=== PATIENT | male | born 1980 | race Native Hawaiian/Other Pacific Islander ===

== ENCOUNTER 2019-12-15 11:54 | Outpatient (REF) | payer MEDICAID, SELFPAY ==
--- NOTE | 2019-12-15 12:18 | XR_ITS ---
EXAMINATION: LUMBOSACRAL SPINE 3 VIEWS CLINICAL INFORMATION: Pain. COMPARISON: June 05, 2015. TECHNIQUE: AP, lateral, spot lateral views of the lumbosacral spine are provided. FINDINGS: There are no fractures. The lumbar vertebrae are in normal alignment. There is mild disc height loss at L2/L3. There is anterior osteophyte formation. Disc heights and vertebral body heights are otherwise well-preserved. XR/XR lumbar spine 2-3V IMPRESSION: Mild degenerative change without evidence of acute injury.
--- NOTE | 2019-12-15 12:18 | XR_ITS ---
EXAMINATION: XR SOFT TISSUE NECK CLINICAL INDICATION: Neck pain. Skin paresthesia. COMPARISON: None TECHNIQUE: 2 views of the soft tissue neck were obtained. FINDINGS: There is bulky degenerative spondylosis with large anterior vertebral body bony osteophytes, largest at C3-4. This causes indentation on the hypopharynx. Prevertebral soft tissues are otherwise normal. No abnormal air collection or soft tissue foreign body is seen. Bone alignment is normal. No fracture or dislocation is seen. There is soft tissue ossification of the posterior neck at the C4 and C5 vertebral body levels likely related to old trauma. XR/XR soft tissue neck IMPRESSION: Severe degenerative spondylosis of the cervical spine with large vertebral body bony osteophytes.
[2019-12-15 13:12] LABS: Alanine Aminotransferase 29 U/L (0-40); Albumin Level 4.2 g/dL (3.5-5.0); Alkaline Phosphatase 63 U/L (39-117); Anion Gap 10 (12-20); Aspartate Amino Transferase 22 U/L (5-37); Bilirubin Total 0.6 mg/dL (0.0-1.0); Blood Urea Nitrogen 18 mg/dL (9-16); Calcium 8.6 mg/dL (8.4-10.2); Carbon Dioxide 31 mmol/L (22-29); Chloride 103 mmol/L (96-108); Cholesterol 174 mg/dL; Estimated Glomerular Filt Rate > 60; Glucose Random 91 mg/dL (60-115); HDL Cholesterol 36 mg/dL; LDL Cholesterol Calculated 118 mg/dl; Potassium 4.9 mmol/l (3.3-5.1); Sodium 139 mmol/L (135-145); Total Protein 7.2 g/dL (6.5-8.0); Triglycerides 102 mg/dL
[2019-12-15 13:24] LABS: TSH reflex Free T4 0.62 mIU/mL (0.32-4.0)
[2019-12-15 13:42] LABS: Estimated Average Glucose 120 mg/dL; Hemoglobin A1c % 5.8 %
== END 2019-12-15 11:55 | disposition home or self-care (01) ==
LOC: HO.LAB 11:54
PROVIDERS: Visit Provider Registered Nurse
DX: F32.9 Major depressive disorder, single episode, unspecified (principal); I10 Essential (primary) hypertension; M54.9 Dorsalgia, unspecified; R73.09 Other abnormal glucose; M54.2 Cervicalgia; M79.601 Pain in right arm; M79.602 Pain in left arm; R20.0 Anesthesia of skin; R20.2 Paresthesia of skin
CPT/HCPCS: 70360; 72100; 80053; 80061; 83036; 84443

== ENCOUNTER 2019-12-15 13:46 | Outpatient (REF) | payer MEDICAID, SELFPAY | END 2019-12-15 13:47 | disposition home or self-care (01) | LOC: HO.LAB 13:46 | PROVIDERS: Visit Provider Internal Medicine | DX: Z20.828 Contact with and (suspected) exposure to other viral communicable diseases (principal) | CPT/HCPCS: C9803; U0003 ==

== ENCOUNTER 2020-01-09 15:09 | Outpatient (REF) | payer MEDICAID, SELFPAY | END 2020-01-09 15:10 | disposition home or self-care (01) | LOC: HO.LAB 15:09 | PROVIDERS: Visit Provider Internal Medicine | DX: Z20.828 Contact with and (suspected) exposure to other viral communicable diseases (principal) | CPT/HCPCS: C9803; U0003 ==

== ENCOUNTER 2020-02-11 18:03 | Emergency (ER) | payer MEDICAID, SELFPAY ==
[2020-02-11 20:35] VITALS: BP 148/86; PULSE 93; RESP 16; TEMP 36.3; O2SAT 98; BMI 46.5
--- NOTE | 2020-02-11 20:44 | ECG_ITS ---
Test Reason : HEADACHE Blood Pressure : / mmHG Vent. Rate : 083 BPM Atrial Rate : 083 BPM P-R Int : 168 ms QRS Dur : 102 ms QT Int : 346 ms P-R-T Axes : 047 -40 018 degrees QTc Int : 406 ms Normal sinus rhythm Left axis deviation Pulmonary disease pattern Abnormal ECG When compared with ECG of 20-OCT-2004 22:49, No significant change was found Referred By: Stephanie Angel Electronically Signed By:Romeo Navarro
--- NOTE | 2020-02-11 20:44 | XR_ITS ---
EXAMINATION: XR CHEST CLINICAL INFORMATION: Cough. Chest pain. COMPARISON: 06/27/2019 TECHNIQUE: Frontal view of the chest was obtained. FINDINGS: Normal symmetric lung volumes. No parenchymal consolidation. No pleural effusion. No pneumothorax. Cardiomediastinal silhouette and pulmonary vascularity are within normal limits. No acute osseous abnormalities. XR/XR chest 1V IMPRESSION: Unremarkable examination.
--- NOTE | 2020-02-11 20:45 | ED_ITS ---
HPI - URI/Sore Throat General Chief Complaint: Headache Stated Complaint: flu like Time Seen by Provider: 02/11/20 19:05 Source: patient Mode of arrival: ambulatory History of Present Illness HPI Narrative: 39-year-old male with a past medical history of hypertension presented to the ED complaining of generalized fatigue/myalgias, headache, chills, dry cough, chest tightness/discomfort, and mild SOB x4 days. 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 Denies documented fever, LE edema, known contact with COVID19, abdominal pain, N/V, hx clots, or smoking MD elicited complaint: cough, rhinorrhea and nasal congestion Related Data Previous Rx's Medication Instructions Recorded albuterol sulfate 2 puff INHALATION Q4-6H PRN #6.7 g 02/11/20 Allergies Allergy/AdvReac Type Severity Reaction Status Date / Time No Known Allergies Allergy Verified 02/11/20 23:44 Review of Systems Review of Systems: Constitutional: No Weight loss, No Fever, + Chills, No Night Sweats, + Fatigue, +Malaise ENT/Mouth: + Nasal Congestion, No Sinus Pain, No Hoarseness, No sore throat, + Rhinorrhea Cardiovascular: + Chest Pain, + SOB, No Dyspnea on Exertion, No Orthopnea, No Edema, No Palpitations Respiratory: +o Cough, No Sputum, No Wheezing Gastrointestinal: No Nausea, No Vomiting, No Diarrhea, No Constipation, No Abdominal pain Musculoskeletal: No joint pain, + Myalgias, No Joint Swelling Skin: No Skin Lesions, No rash Neuro: + Headache Yes all other systems are reviewed and are negative [facility] Past Medical History Attestation statement: The following information was validated with the patient. Medical History (Updated 02/11/20 @ 22:04 by ASHLEY Herrera) HTN (hypertension) Social History Social History Alcohol intake: never Smoking Status: Never smoker Use of substances other than those prescribed or required for medical reasons: No Advance Directives: No Advance Directives Information Provided: No Physical Exam Vital Signs: Vital Signs: Last Vital Signs Temp 99.9 F 02/11/20 22:00 Pulse 87 02/11/20 22:00 Resp 17 02/11/20 22:00 BP 145/73 H 02/11/20 22:00 Pulse Ox 99 02/11/20 22:00 Body Mass Index 46.5 Const: General: cooperative and healthy appearing Orientation/consciousness: patient oriented x3 Limitations: no limitations HENMT: Head: Yes normal to inspection Ears: hearing grossly normal bilaterally General nose exam: Normal external nose present Face and sinus: Yes normal facial exam Eyes: General: appearance normal, both eyes and all related structures EOM: EOMs intact bilaterally Neck: Neck: Yes normal visual inspection and Yes no meningeal signs Resp: Effort & Inspection: normal respiratory effort Auscultation: clear to auscultation bilaterally, no rales, no rhonchi and no wheezes Cardio: Rate: regular rate Heart sounds: S1 normal heart sound present and S2 normal heart sound present GI: Inspection: Yes normal to inspection Skin: Rashes: no rashes Wounds: no wounds Neuro: General: patient oriented x3 and no meningeal signs Gait exam (Neuro): Normal gait present Extrem: Other: no LE edema, +bilateral calf ttp General: Yes normal to inspection Course Course Course Narrative: * D-dimer 226 > Pdue to patients RF's and now covid19+ will o btain venous duplex US * CRP mildly elevated * COVID-19 positive, CXR unremarkable * 2337-venous duplex negative for DVT Results discussed with patient including worrisome signs and symptoms and strict return precautions. Patient verbalized understanding feel safe for discharge home MDM - URI/Sore Throat MDM Narrative Medical decision making narrative: 39-year-old male with a past medical history of hypertension presented to the ED complaining of generalized fatigue/myalgias, headache, chills, dry cough, chest tightness/discomfort, and mild SOB x4 days. On exam VSS, NAD, nontoxic, lungs cta, +b/l calf ttp. Concern for viral syndrome/COVID19 vs ACS vs PE/DVT with risk factors Plan: EKG, labs, CXR, COVID/FLU/RSV testing Lab Data Result diagrams: 02/11/20 21:03 02/11/20 21:03 Labs: Lab Results 02/11/20 02/11/20 02/11/20 Range/Units 21:02 21:03 21:03 WBC 5.3 (4.8-10.8) X10*3/uL RBC 4.90 (4.60-5.80) X10*6/uL Hgb 14.4 (14.0-18.0) g/dl Hct 43.1 (42-52) % MCV 88.0 (80-98) fL MCH 29.4 (27.0-33.0) pg MCHC 33.4 (31.0-36.0) g/dl RDW 12.0 (11.0-16.0) % Plt Count 242 (160-400) X10*3/uL MPV 9.8 (9.4-12.4) fL Immature Gran % (Auto) 0.2 (0.0-0.4) % Neut % (Auto) 59.6 (45-73) % Lymph % (Auto) 30.1 (20-40) % O'Brien % (Auto) 9.0 (2-11) % Eos % (Auto) 0.9 (0-4) % Baso % (Auto) 0.2 (0-2) % Lymph # (Auto) 1.6 (1.2-4.9) X10*3/uL O'Brien # (Auto) 0.5 (0.1-1.2) X10*3/uL Eos # (Auto) 0.1 (0.0-0.4) X10*3/uL Baso # (Auto) 0.0 (0.0-0.2) X10*3/uL Abs Immat Gran (auto) 0.01 (0.00-0.03) X10*3/uL Absolute Neuts (auto) 3.2 (2.0-8.3) X10*3/uL Absolute Nucleated RBC 0.000 (0.0-0.012) X10*3/uL Nucleated RBC % (auto) 0.0 (0.0-0.2) /100WBC PT (10.8-13.0) SEC INR (0.9-1.1) APTT (24.1-38.0) SEC D-Dimer 226 NG/ML Sodium (135-145) mmol/L Potassium (3.3-5.1) mmol/l Chloride (96-108) mmol/L Carbon Dioxide (22-29) mmol/L Anion Gap (12-20) BUN (9-16) mg/dL Creatinine (0.5-1.4) mg/dL Estim Creat Clear Calc Estimated GFR Random Glucose (60-115) mg/dL Calcium (8.4-10.2) mg/dL Magnesium (1.6-2.6) mg/dL Ferritin (20-250) ng/mL Total Bilirubin (0.0-1.0) mg/dL Direct Bilirubin (0.0-0.5) mg/dL AST (5-37) U/L ALT (0-40) U/L Alkaline Phosphatase (39-117) U/L Lactate Dehydrogenase (118-273) U/L Troponin I High Sens (<3.5-35.0) ng/L C-Reactive Protein (< or = 0.50) mg/dL B-Natriuretic Peptide (<100) pg/mL Total Protein (6.5-8.0) g/dL Albumin (3.5-5.0) g/dL Procalcitonin ng/mL Coronavirus (PCR) POSITIVE A (Negative) Influenza Type A (PCR) NEGATIVE (Negative) Influenza Type B (PCR) NEGATIVE (Negative) RSV RNA Qual (PCR) NEGATIVE (Negative) 02/11/20 02/11/20 02/11/20 Range/Units 21:03 21:03 21:03 WBC (4.8-10.8) X10*3/uL RBC (4.60-5.80) X10*6/uL Hgb (14.0-18.0) g/dl Hct (42-52) % MCV (80-98) fL MCH (27.0-33.0) pg MCHC (31.0-36.0) g/dl RDW (11.0-16.0) % Plt Count (160-400) X10*3/uL MPV (9.4-12.4) fL Immature Gran % (Auto) (0.0-0.4) % Neut % (Auto) (45-73) % Lymph % (Auto) (20-40) % O'Brien % (Auto) (2-11) % Eos % (Auto) (0-4) % Baso % (Auto) (0-2) % Lymph # (Auto) (1.2-4.9) X10*3/uL O'Brien # (Auto) (0.1-1.2) X10*3/uL Eos # (Auto) (0.0-0.4) X10*3/uL Baso # (Auto) (0.0-0.2) X10*3/uL Abs Immat Gran (auto) (0.00-0.03) X10*3/uL Absolute Neuts (auto) (2.0-8.3) X10*3/uL Absolute Nucleated RBC (0.0-0.012) X10*3/uL Nucleated RBC % (auto) (0.0-0.2) /100WBC PT 12.9 (10.8-13.0) SEC INR 1.1 (0.9-1.1) APTT 30.9 (24.1-38.0) SEC D-Dimer NG/ML Sodium 141 (135-145) mmol/L Potassium 4.3 (3.3-5.1) mmol/l Chloride 103 (96-108) mmol/L Carbon Dioxide 31 H (22-29) mmol/L Anion Gap 11 L (12-20) BUN 17 H (9-16) mg/dL Creatinine 1.20 (0.5-1.4) mg/dL Estim Creat Clear Calc 115.2 Estimated GFR > 60 Random Glucose 91 (60-115) mg/dL Calcium 8.9 (8.4-10.2) mg/dL Magnesium 2.0 (1.6-2.6) mg/dL Ferritin 197 (20-250) ng/mL Total Bilirubin 0.4 (0.0-1.0) mg/dL Direct Bilirubin 0.2 (0.0-0.5) mg/dL AST 27 (5-37) U/L ALT 37 (0-40) U/L Alkaline Phosphatase 65 (39-117) U/L Lactate Dehydrogenase 244 (118-273) U/L Troponin I High Sens < 3.5 (<3.5-35.0) ng/L C-Reactive Protein 2.60 H (< or = 0.50) mg/dL B-Natriuretic Peptide < 10 (<100) pg/mL Total Protein 7.5 (6.5-8.0) g/dL Albumin 4.4 (3.5-5.0) g/dL Procalcitonin ng/mL Coronavirus (PCR) (Negative) Influenza Type A (PCR) (Negative) Influenza Type B (PCR) (Negative) RSV RNA Qual (PCR) (Negative) 02/11/20 Range/Units 21:03 WBC (4.8-10.8) X10*3/uL RBC (4.60-5.80) X10*6/uL Hgb (14.0-18.0) g/dl Hct (42-52) % MCV (80-98) fL MCH (27.0-33.0) pg MCHC (31.0-36.0) g/dl RDW (11.0-16.0) % Plt Count (160-400) X10*3/uL MPV (9.4-12.4) fL Immature Gran % (Auto) (0.0-0.4) % Neut % (Auto) (45-73) % Lymph % (Auto) (20-40) % O'Brien % (Auto) (2-11) % Eos % (Auto) (0-4) % Baso % (Auto) (0-2) % Lymph # (Auto) (1.2-4.9) X10*3/uL O'Brien # (Auto) (0.1-1.2) X10*3/uL Eos # (Auto) (0.0-0.4) X10*3/uL Baso # (Auto) (0.0-0.2) X10*3/uL Abs Immat Gran (auto) (0.00-0.03) X10*3/uL Absolute Neuts (auto) (2.0-8.3) X10*3/uL Absolute Nucleated RBC (0.0-0.012) X10*3/uL Nucleated RBC % (auto) (0.0-0.2) /100WBC PT (10.8-13.0) SEC INR (0.9-1.1) APTT (24.1-38.0) SEC D-Dimer NG/ML Sodium (135-145) mmol/L Potassium (3.3-5.1) mmol/l Chloride (96-108) mmol/L Carbon Dioxide (22-29) mmol/L Anion Gap (12-20) BUN (9-16) mg/dL Creatinine (0.5-1.4) mg/dL Estim Creat Clear Calc Estimated GFR Random Glucose (60-115) mg/dL Calcium (8.4-10.2) mg/dL Magnesium (1.6-2.6) mg/dL Ferritin (20-250) ng/mL Total Bilirubin (0.0-1.0) mg/dL Direct Bilirubin (0.0-0.5) mg/dL AST (5-37) U/L ALT (0-40) U/L Alkaline Phosphatase (39-117) U/L Lactate Dehydrogenase (118-273) U/L Troponin I High Sens (<3.5-35.0) ng/L C-Reactive Protein (< or = 0.50) mg/dL B-Natriuretic Peptide (<100) pg/mL Total Protein (6.5-8.0) g/dL Albumin (3.5-5.0) g/dL Procalcitonin 0.03 ng/mL Coronavirus (PCR) (Negative) Influenza Type A (PCR) (Negative) Influenza Type B (PCR) (Negative) RSV RNA Qual (PCR) (Negative) Discharge Plan Discharge Clinical Impression: COVID-19 Patient Disposition: Home, Self-Care Instructions: COVID-19 (Coronavirus Disease 2019) (ED) Additional Instructions: YOU HAVE COVID-19 YOU NEED TO SELF ISOLATE FOR 10-14 DAYS YOU CAN EXPECT TO HAVE A FEVER, FEEL A LITTLE SHORT OF BREATH WITH COVID-19, HOWEVER IF YOUR FEVERS UNRESOLVED TYLENOL OR MOTRIN AT HOME, YOU HAVE CONSTANT WORSENING SHORTNESS OF BREATH, OR CHEST DISCOMFORT RETURN TO THE ED IMMEDIATELY ALBUTEROL INHALER A IS FOR SHORTNESS OF BREATH, TAKE NEEDED AT HOME CDC Guidelines for home isolation: - Stay away from others - WEAR A MASK if you are sick AND STAY HOME - Cover your mouth and nose with a tissue when you cough or sneeze. Dispose of tissues in a lined trash can and wash your hands immediately with soap and water for at least 20 seconds. If soap and water are not available, clean hands with alcohol-based hand bulldozer mechanic that contains at least 60% alcohol. - Clean your hands often with soap and water for at least 20 seconds - Avoid touching your eyes, nose and mouth with unwashed hands - Do not share dishes, drinking glasses, cups, eating utensils, towels, or bedding with other people in your home. After using these items, wash them thor oughly with soap and water or put in the radio communication coordinator. - Clean high-touch surfaces in your isolation area ( sick room and bathroom) every day; let a caregiver clean and disinfect high-touch surfaces in other areas of the home. Clean the area or item with soap and water or another detergent if it is dirty. Then, use a household disinfectant. - Limit contact with pets and animals: If you must care for a pet, wash your hands before and after interacting with them) Prescriptions: New albuterol sulfate 90 mcg/actuation HFA aerosol inhaler 2 puff inhalation Q4-6H PRN (Reason: shortness of breath or wheezing) Qty: 6.7 RF: 0 Referrals: Physician,Unknown [Primary Care Provider] - 2 days
[2020-02-11 21:16] LABS: MANUAL DIFF FLAG NO
[2020-02-11 21:26] LABS: Basophils Percent Auto 0.2 % (0-2); Eosinophils Absolute Auto 0.1 X10*3/uL (0.0-0.4); Eosinophils Percent Auto 0.9 % (0-4); Hematocrit 43.1 % (42-52); Hemoglobin 14.4 g/dl (14.0-18.0); Imm Gran Abs Auto 0.01 X10*3/uL (0.00-0.03); Imm Gran Pct Auto 0.2 % (0.0-0.4); Lymphocytes Absolute Auto 1.6 X10*3/uL (1.2-4.9); Lymphocytes Percent Auto 30.1 % (20-40); Mean Corpuscular HGB Conc 33.4 g/dl (31.0-36.0); Mean Corpuscular Hemoglobin 29.4 pg (27.0-33.0); Mean Platelet Volume 9.8 fL (9.4-12.4); Monocytes Absolute Auto 0.5 X10*3/uL (0.1-1.2); Neutrophils Absolute Auto 3.2 X10*3/uL (2.0-8.3); Neutrophils Percent Auto 59.6 % (45-73); Platelet Count 242 X10*3/uL (160-400); White Blood Count 5.3 X10*3/uL (4.8-10.8)
[2020-02-11 21:35] LABS: INTERNATIONAL NORM RATIO 1.1 (0.9-1.1); Prothrombin Time 12.9 SEC (10.8-13.0)
[2020-02-11 21:38] LABS: D Dimer 226 NG/ML; Partial Thromboplastin Time 30.9 SEC (24.1-38.0)
[2020-02-11 21:53] LABS: Influenza A PCR NEGATIVE (Negative); Influenza B PCR NEGATIVE (Negative); Resp Syncy Virus RNA Qual PCR NEGATIVE (Negative)
[2020-02-11 21:53] LABS: Alanine Aminotransferase 37 U/L (0-40); Albumin Level 4.4 g/dL (3.5-5.0); Alkaline Phosphatase 65 U/L (39-117); Anion Gap 11 (12-20); Aspartate Amino Transferase 27 U/L (5-37); Bilirubin Direct 0.2 mg/dL (0.0-0.5); Bilirubin Total 0.4 mg/dL (0.0-1.0); Blood Urea Nitrogen 17 mg/dL (9-16); Calcium 8.9 mg/dL (8.4-10.2); Carbon Dioxide 31 mmol/L (22-29); Chloride 103 mmol/L (96-108); Creatinine Clr Calc Pharmacy 115.2; Estimated Glomerular Filt Rate > 60; Glucose Random 91 mg/dL (60-115); Lactate Dehydrogenase 244 U/L (118-273); Potassium 4.3 mmol/l (3.3-5.1); Sodium 141 mmol/L (135-145); Total Protein 7.5 g/dL (6.5-8.0)
[2020-02-11 21:57] LABS: B Type Natriuretic Peptide < 10 pg/mL (<100); Troponin-I High Sensitivity < 3.5 ng/L (<3.5-35.0)
[2020-02-11 21:57] LABS: SARS COV2 PCR INHOUSE POSITIVE (Negative)
[2020-02-11 22:00] VITALS: BP 145/73; PULSE 87; RESP 17; TEMP 37.7; O2SAT 99
[2020-02-11 22:10] LABS: Procalcitonin 0.03 ng/mL
[2020-02-11 22:13] LABS: Ferritin 197 ng/mL (20-250)
--- NOTE | 2020-02-11 22:13 | US_ITS ---
EXAMINATION: US VENOUS ULTRASOUND WITH DOPPLER LOWER EXTREMITY, BILATERAL CLINICAL INFORMATION: Bilateral calf tenderness to palpation. Covid positive. COMPARISON: None TECHNIQUE: Ultrasound of the deep veins is performed from the hip to the calf with compression sonography and color and pulse Doppler assessment. Spectral analysis with color-flow imaging is performed. FINDINGS: RIGHT: There is normal venous compression and respiratory variation and augmented flow. The visualized common femoral vein, superficial femoral vein, profunda femoral vein, popliteal vein, and the trifurcation region shows no evidence of deep venous thrombosis. There is no significant popliteal fossa cyst. LEFT: There is normal venous compression and respiratory variation and augmented flow. The visualized common femoral vein, superficial femoral vein, profunda femoral vein, popliteal vein, and the trifurcation region shows no evidence of deep venous thrombosis. There is no significant popliteal fossa cyst. If the patient's symptoms persist, followup ultrasound in 5 days 7 days might be of value to exclude proximal propagation from a non-visualized calf vein. US/US venous duplex LE BI IMPRESSION: No DVT demonstrated in the right and left lower extremity.
[2020-02-11 23:54] VITALS: BP 165/94; PULSE 85; RESP 18; TEMP 37.7; O2SAT 98
== END 2020-02-11 23:58 | disposition home or self-care (01) ==
PROVIDERS: Physician Assistant; Emergency Provider Internal Medicine
DX: U07.1 COVID-19 (principal); R51.9 Headache, unspecified; R05 Cough; R60.0 Localized edema
CPT/HCPCS: 0241U; 36415; 71045; 80048; 80076; 82728; 83615; 83735; 83880; 84145; 84484; 85025; 85379; 85610; 85730; 86140; 93005; 93970; 99284

== ENCOUNTER 2020-04-08 17:17 | Outpatient (REF) | payer MEDICAID, SELFPAY ==
--- NOTE | ~2020-04-08 | XR_ITS ---
EXAMINATION: XR CERVICAL SPINE XR LUMBAR SPINE XR SOFT TISSUE NECK CLINICAL INFORMATION: Cervical and lumbar pain. COMPARISON: Lumbar spine 12/15/2019 TECHNIQUE: Cervical spine 5 views. Lumbar spine 5 views. Soft tissue neck 2 views. FINDINGS: CERVICAL SPINE: There is normal cervical lordosis. There are large bridging ventral osteophytes C3-C4, C4-C5, C5-C6 and C6-C7 disc levels. The vertebral heights and alignment and disc heights are preserved. Mild narrowing of right neural foramina at C4-C5 and C5-C6 disc levels are noted. This could be positional. Rest the neural foramina are patent. The craniovertebral junction is normal. The prevertebral soft tissues are normal. There is focal calcification posterior C4-C5 spinous process along the ligament noted. LUMBAR SPINE: There is mild straightening of lumbar lordosis. The vertebral heights and alignment is normal. There is mild ventral spondylosis L2-L3, L3-L4, L4-L5 disc levels without fracture or dislocation. No lytic process. There are bridging osteophytes at the L2-L3 disc level. No pars defect or listhesis seen on oblique views. SOFT TISSUE NECK: The prevertebral soft tissues are normal except for moderate large with ventral bridging osteophytes C3-C4 disc level. The airway is widely patent. The anterior soft tissue neck is unremarkable. XR/XR cervical spine 4V IMPRESSION: 1. Large ventral bridging osteophytes C3-C4 through C6-C7 disc levels most prominent at C3-C4 disc level extending into the prevertebral soft tissues. No visible acute fracture or dislocation seen. Minimal narrowing of right neural foramina as described above could be positional. No acute fracture. 2. Large ventral bridging osteophyte L2-L3 disc level with mild straightening of lumbar lordosis. No visible acute fracture or dislocation seen. 3. Widely patent pharyngeal and laryngeal airway. No soft tissue mass seen in the neck.
--- NOTE | ~2020-04-08 | XR_ITS ---
EXAMINATION: XR CERVICAL SPINE XR LUMBAR SPINE XR SOFT TISSUE NECK CLINICAL INFORMATION: Cervical and lumbar pain. COMPARISON: Lumbar spine 12/15/2019 TECHNIQUE: Cervical spine 5 views. Lumbar spine 5 views. Soft tissue neck 2 views. FINDINGS: CERVICAL SPINE: There is normal cervical lordosis. There are large bridging ventral osteophytes C3-C4, C4-C5, C5-C6 and C6-C7 disc levels. The vertebral heights and alignment and disc heights are preserved. Mild narrowing of right neural foramina at C4-C5 and C5-C6 disc levels are noted. This could be positional. Rest the neural foramina are patent. The craniovertebral junction is normal. The prevertebral soft tissues are normal. There is focal calcification posterior C4-C5 spinous process along the ligament noted. LUMBAR SPINE: There is mild straightening of lumbar lordosis. The vertebral heights and alignment is normal. There is mild ventral spondylosis L2-L3, L3-L4, L4-L5 disc levels without fracture or dislocation. No lytic process. There are bridging osteophytes at the L2-L3 disc level. No pars defect or listhesis seen on oblique views. SOFT TISSUE NECK: The prevertebral soft tissues are normal except for moderate large with ventral bridging osteophytes C3-C4 disc level. The airway is widely patent. The anterior soft tissue neck is unremarkable. XR/XR lumbar spine 4V min IMPRESSION: 1. Large ventral bridging osteophytes C3-C4 through C6-C7 disc levels most prominent at C3-C4 disc level extending into the prevertebral soft tissues. No visible acute fracture or dislocation seen. Minimal narrowing of right neural foramina as described above could be positional. No acute fracture. 2. Large ventral bridging osteophyte L2-L3 disc level with mild straightening of lumbar lordosis. No visible acute fracture or dislocation seen. 3. Widely patent pharyngeal and laryngeal airway. No soft tissue mass seen in the neck.
--- NOTE | ~2020-04-08 | XR_ITS ---
EXAMINATION: XR CERVICAL SPINE XR LUMBAR SPINE XR SOFT TISSUE NECK CLINICAL INFORMATION: Cervical and lumbar pain. COMPARISON: Lumbar spine 12/15/2019 TECHNIQUE: Cervical spine 5 views. Lumbar spine 5 views. Soft tissue neck 2 views. FINDINGS: CERVICAL SPINE: There is normal cervical lordosis. There are large bridging ventral osteophytes C3-C4, C4-C5, C5-C6 and C6-C7 disc levels. The vertebral heights and alignment and disc heights are preserved. Mild narrowing of right neural foramina at C4-C5 and C5-C6 disc levels are noted. This could be positional. Rest the neural foramina are patent. The craniovertebral junction is normal. The prevertebral soft tissues are normal. There is focal calcification posterior C4-C5 spinous process along the ligament noted. LUMBAR SPINE: There is mild straightening of lumbar lordosis. The vertebral heights and alignment is normal. There is mild ventral spondylosis L2-L3, L3-L4, L4-L5 disc levels without fracture or dislocation. No lytic process. There are bridging osteophytes at the L2-L3 disc level. No pars defect or listhesis seen on oblique views. SOFT TISSUE NECK: The prevertebral soft tissues are normal except for moderate large with ventral bridging osteophytes C3-C4 disc level. The airway is widely patent. The anterior soft tissue neck is unremarkable. XR/XR soft tissue neck IMPRESSION: 1. Large ventral bridging osteophytes C3-C4 through C6-C7 disc levels most prominent at C3-C4 disc level extending into the prevertebral soft tissues. No visible acute fracture or dislocation seen. Minimal narrowing of right neural foramina as described above could be positional. No acute fracture. 2. Large ventral bridging osteophyte L2-L3 disc level with mild straightening of lumbar lordosis. No visible acute fracture or dislocation seen. 3. Widely patent pharyngeal and laryngeal airway. No soft tissue mass seen in the neck.
== END 2020-04-08 17:18 | disposition home or self-care (01) ==
LOC: HO.XRAY 17:17
PROVIDERS: PCP Registered Nurse; Visit Provider Registered Nurse
DX: M54.2 Cervicalgia (principal); M54.9 Dorsalgia, unspecified
CPT/HCPCS: 70360; 72050; 72110

== ENCOUNTER 2020-05-24 09:40 | Outpatient (REF) | payer MEDICAID, SELFPAY ==
--- NOTE | ~2020-05-24 | XR_ITS ---
EXAMINATION: XR CERVICAL SPINE CLINICAL INFORMATION: Ignacio COMPARISON: 06/08/2020 TECHNIQUE: 6 views of the cervical spine, inclusive of flexion and extension views, were obtained. FINDINGS: No acute fracture or traumatic malalignment. Vertebral body heights maintained. Bulky bridging osteophytes present anteriorly throughout the cervical spine. Mild facet arthropathy present throughout cervical spine. Oblique views demonstrate mild osseous neural foraminal encroachment at C3-C4 and C5-C6. Ossification of the nuchal ligament. Paraspinal soft tissues otherwise unremarkable. XR/XR cervical spine min 6V IMPRESSION: No acute fracture or traumatic malalignment. Cervical spondylosis as described.
--- NOTE | ~2020-05-24 | XR_ITS ---
EXAMINATION: XR DORSAL SPINE CLINICAL INFORMATION: Reason for Exam PAIN COMPARISON: None available at the time of this dictation. TECHNIQUE: Frontal and lateral FINDINGS: There is no evidence of fracture or dislocation. The vertebral bodies maintain normal height and alignment. Narrowing of intervertebral disc spaces suggest underlying degenerative disc disease. The paravertebral soft tissues are unremarkable. Included adjacent lungs are clear. XR/XR thoracic spine 3V IMPRESSION: No fracture. Narrowing of intervertebral disc spaces suggest underlying degenerative disc disease. .
[2020-05-24 10:19] LABS: MANUAL DIFF FLAG NO
[2020-05-24 10:22] LABS: Basophils Percent Auto 0.3 % (0-2); Eosinophils Absolute Auto 0.2 X10*3/uL (0.0-0.4); Eosinophils Percent Auto 2.6 % (0-4); Hematocrit 43.2 % (42-52); Hemoglobin 14.4 g/dl (14.0-18.0); Imm Gran Abs Auto 0.03 X10*3/uL (0.00-0.03); Imm Gran Pct Auto 0.4 % (0.0-0.4); Lymphocytes Percent Auto 43.1 % (20-40); Mean Corpuscular HGB Conc 33.3 g/dl (31.0-36.0); Mean Corpuscular Volume 86.9 fL (80-98); Mean Platelet Volume 9.4 fL (9.4-12.4); Monocytes Absolute Auto 0.5 X10*3/uL (0.1-1.2); Monocytes Percent Auto 7.2 % (2-11); Neutrophils Absolute Auto 3.2 X10*3/uL (2.0-8.3); Neutrophils Percent Auto 46.4 % (45-73); Platelet Count 316 X10*3/uL (160-400); Red Blood Count 4.97 X10*6/uL (4.60-5.80); Red Cell Distribution Width 12.6 % (11.0-16.0); White Blood Count 6.9 X10*3/uL (4.8-10.8)
[2020-05-24 10:42] LABS: Estimated Average Glucose 111 mg/dL; Hemoglobin A1c % 5.5 %
[2020-05-24 10:54] LABS: Alanine Aminotransferase 29 U/L (0-40); Albumin Level 4.3 g/dL (3.5-5.0); Alkaline Phosphatase 58 U/L (39-117); Anion Gap 13 (12-20); Aspartate Amino Transferase 20 U/L (5-37); Bilirubin Total 0.6 mg/dL (0.0-1.0); Blood Urea Nitrogen 22 mg/dL (9-16); Calcium 9.3 mg/dL (8.4-10.2); Carbon Dioxide 29 mmol/L (22-29); Chloride 102 mmol/L (96-108); Cholesterol 170 mg/dL; Estimated Glomerular Filt Rate > 60; Glucose Random 103 mg/dL (60-115); HDL Cholesterol 41 mg/dL; LDL Cholesterol Calculated 107 mg/dl; Sodium 139 mmol/L (135-145); Total Protein 7.2 g/dL (6.5-8.0); Triglycerides 111 mg/dL
[2020-05-24 11:07] LABS: TSH reflex Free T4 1.16 uIU/mL (0.32-4.0); Vitamin D 25-OH Total 11.6 ng/mL (>30)
[2020-05-24 11:18] LABS: Folate 7.4 ng/mL (> or = 4.0); Vitamin B12 321 pg/mL (200-900)
== END 2020-05-24 09:41 | disposition home or self-care (01) ==
LOC: HO.LAB 09:40
PROVIDERS: PCP Registered Nurse; Visit Provider Registered Nurse
DX: K21.9 Gastro-esophageal reflux disease without esophagitis (principal); M54.9 Dorsalgia, unspecified; R11.0 Nausea; R60.0 Localized edema
CPT/HCPCS: 36415; 72052; 72072; 80053; 80061; 82306; 82607; 82746; 83036; 84443; 85025

== ENCOUNTER 2020-07-26 14:47 | Outpatient (REF) | payer MEDICAID, SELFPAY ==
--- NOTE | ~2020-07-26 | XR_ITS ---
EXAMINATION: XR SOFT TISSUE NECK CLINICAL INDICATION: Pain. COMPARISON: None TECHNIQUE: 2 views of the soft tissue neck were obtained. FINDINGS: There is lobulated soft tissue prominence in the hypopharynx overlying the pyriform sinuses just above the vocal folds. Significance is undetermined. The epiglottis and aryepiglottic folds are normal. The prevertebral soft tissues are normal. The subglottic trachea is unremarkable. XR/XR soft tissue neck IMPRESSION: Lobulated soft tissue prominence in the hypopharynx as described. Direct visualization is suggested.
--- NOTE | ~2020-07-26 | XR_ITS ---
EXAMINATION: XR shoulder RT min 2V, XR cervical spine min 6V CLINICAL INFORMATION: Pain. COMPARISON: None. TECHNIQUE: AP, lateral, open-mouth and Fuchs views of the cervical spine were obtained with both oblique views. Right shoulder 4 views. FINDINGS: CERVICAL SPINE: There are large anterior osteophytes at C3-4, C4-5, C5-6 and C6-7. The intervening disc spaces are relatively well maintained. No foraminal encroachment is seen at any level. No significant facet arthropathy is evident. Chronic calcification is noted in the posterior soft tissues of the neck at the C5 level. RIGHT SHOULDER: No fracture or other bony abnormality. Alignment the glenohumeral and acromioclavicular joints is normal. No abnormality of the upper right chest is demonstrated. XR/XR shoulder RT min 2V IMPRESSION: 1. Large anterior osteophytosis in the cervical spine with fairly well preserved disc spaces. Otherwise unremarkable appearance of the cervical spine. 2. Unremarkable right shoulder.
--- NOTE | ~2020-07-26 | XR_ITS ---
EXAMINATION: XR shoulder RT min 2V, XR cervical spine min 6V CLINICAL INFORMATION: Pain. COMPARISON: None. TECHNIQUE: AP, lateral, open-mouth and Fuchs views of the cervical spine were obtained with both oblique views. Right shoulder 4 views. FINDINGS: CERVICAL SPINE: There are large anterior osteophytes at C3-4, C4-5, C5-6 and C6-7. The intervening disc spaces are relatively well maintained. No foraminal encroachment is seen at any level. No significant facet arthropathy is evident. Chronic calcification is noted in the posterior soft tissues of the neck at the C5 level. RIGHT SHOULDER: No fracture or other bony abnormality. Alignment the glenohumeral and acromioclavicular joints is normal. No abnormality of the upper right chest is demonstrated. XR/XR cervical spine min 6V IMPRESSION: 1. Large anterior osteophytosis in the cervical spine with fairly well preserved disc spaces. Otherwise unremarkable appearance of the cervical spine. 2. Unremarkable right shoulder.
== END 2020-07-26 14:48 | disposition home or self-care (01) ==
LOC: HO.XRAY 14:47
PROVIDERS: PCP Registered Nurse; Visit Provider Registered Nurse
DX: M54.2 Cervicalgia (principal); M25.511 Pain in right shoulder; M54.12 Radiculopathy, cervical region; M54.89 Other dorsalgia; M54.9 Dorsalgia, unspecified
CPT/HCPCS: 70360; 72052; 73030

== ENCOUNTER 2020-08-16 17:59 | Outpatient (REF) | payer MEDICAID, SELFPAY | END 2020-08-16 18:00 | disposition home or self-care (01) | LOC: HO.MRI 17:59 | PROVIDERS: PCP Registered Nurse; Visit Provider Registered Nurse | DX: Z13.89 Encounter for screening for other disorder (principal) ==

== ENCOUNTER → 2021-06-10 12:48 | Outpatient (REF) | payer MEDICAID, SELFPAY | LOC: HO.SL 12:48 | PROVIDERS: PCP Internal Medicine; Visit Provider Internal Medicine | DX: G47.33 Obstructive sleep apnea (adult) (pediatric) (principal) | CPT/HCPCS: 95806 ==

== ENCOUNTER 2021-08-01 13:22 | Outpatient (REF) | payer MEDICAID, SELFPAY ==
--- NOTE | ~2021-08-01 | XR_ITS ---
EXAMINATION: XR HAND WRIST, RIGHT CLINICAL INFORMATION: Pain COMPARISON: None TECHNIQUE: The right hand and wrist are imaged together in 3 large [id number] images. A navicular view of the wrist is also provided for a total of 4 views. FINDINGS: Normal bony mineralization. No periarticular demineralization. No acute or healing fracture, dislocation, or destructive process. No joint narrowing or erosive changes or chondrocalcinosis. XR/XR hand wrist RT IMPRESSION: Normal study.
== END 2021-08-01 13:23 | disposition home or self-care (01) ==
LOC: HO.XRAY 13:22
PROVIDERS: PCP Internal Medicine; Visit Provider Internal Medicine
DX: M79.641 Pain in right hand (principal)
CPT/HCPCS: 73110; 73130

== ENCOUNTER 2022-09-04 17:48 | Emergency (ER) | payer MEDICAID, SELFPAY ==
--- NOTE | ~2022-09-04 | XR_ITS ---
EXAMINATION: XR CHEST CLINICAL INFORMATION: Chest pain COMPARISON: Chest radiograph from 08/27/2022 TECHNIQUE: Frontal view of the chest was obtained. FINDINGS: Stable slight elevation the right hemidiaphragm. No focal consolidation. No pneumothorax. Trachea is midline. Cardiac mediastinal silhouette is not enlarged. No large pleural effusion. Osseous structures are intact. Soft tissues are unremarkable. XR/XR chest 1V IMPRESSION: No acute cardiopulmonary process.
--- NOTE | ~2022-09-04 | XR_ITS ---
EXAMINATION: XR CHEST CLINICAL INFORMATION: Chest pain COMPARISON: Chest x-ray on 02/11/2020 TECHNIQUE: 2 views of the chest were obtained. FINDINGS: No significant abnormality is noted involving the heart, lungs, mediastinum, bony thorax or soft tissues. XR/XR chest 2V IMPRESSION: Unremarkable examination.
--- NOTE | 2022-09-04 17:52 | ECG_ITS ---
Test Reason : chest pain Blood Pressure : / mmHG Vent. Rate : 081 BPM Atrial Rate : 081 BPM P-R Int : 178 ms QRS Dur : 108 ms QT Int : 362 ms P-R-T Axes : 044 -54 018 degrees QTc Int : 420 ms Normal sinus rhythm Pulmonary disease pattern Left anterior fascicular block Abnormal ECG When compared with ECG of 11-FEB-2020 21:16, No significant change was found Referred By: Generic ED Physician Electronically Signed By:MEG CUEVAS MD
--- NOTE | 2022-09-04 18:25 | ED_ITS ---
HPI - General Adult General Chief complaint: Chest Pain Stated complaint: Chest pain for 3 weeks, SOB, neck/head pain Time Seen by Provider: 09/05/22 06:43 Source: patient Mode of arrival: ambulatory Limitations: no limitations History of Present Illness HPI narrative: 42-year-old male history of hypertension presents to the emergency department for evaluation of substernal nonradiating chest pain constant in nature, precipitated by deep breathing ongoing for the past 3 weeks patient describes the pain as a constant dull pressure. Denies any blunt trauma or heavy lifting. This is never happened to him before. Denies long travel, smoking, hormone replacement therapy. Patient denies shortness of breath, fevers, chills, nausea, vomiting, abdominal pain, headache, vision changes, dizziness and weakness. Patient does report that he is now feeling much better than he was when he 1st arrived at the hospital yesterday. Related Data Previous Rx's Medication Instructions Recorded albuterol sulfate 90 mcg/actuation 2 puff inhalation Q4-6H PRN 02/11/20 aerosol inhaler shortness of breath or wheezing #6.7 grams ketorolac 10 mg tablet 10 mg PO TID PRN pain 5 days #15 09/05/22 tabs Allergies Allergy/AdvReac Type Severity Reaction Status Date / Time No Known Allergies Allergy Verified 09/04/22 18:28 Review of Systems Review of Systems: Constitutional : No Weight loss, No Fever, No Chills, No Fatigue, No Malaise ENT/Mouth : No sore throat, No Rhinorrhea Eyes: No Eye Pain, No Swelling, No Redness Cardiovascular : + Chest Pain, No SOB, No Dyspnea on Exertion, No Orthopnea, No Edema, No Palpitations Respiratory : No Cough, No Sputum, No Wheezing Gastrointestinal : No Nausea, No Vomiting, No Diarrhea, No Constipation, No abdominal Pain, No Hematochezia, No Melena Genitourinary : No Dysuria, No Urinary Frequency, No Hematuria, Musculoskeletal : No joint pain, No Myalgias, No Joint Swelling Skin : No Skin Lesions, No rash Neuro : No Weakness, No Numbness, No Dizziness, No Headache Psych : No Anxiety/Panic, No Depression All other systems reviewed and are negative Yes all other systems are reviewed and are negative [facility] Past Medical History Attestation statement: The following information was validated with the patient. Source: old records reviewed and nursing notes reviewed Medical History HTN (hypertension) Social History Social History Alcohol intake: never Use of substances other than those prescribed or required for medical reasons: No Advance Directives: No Advance Directives Information Provided: Yes Physical Exam ED Vital Signs: Vital Signs - 24 hr 09/04/22 18:26 09/04/22 23:47 09/05/22 01:14 Temperature 97.2 F 97.4 F 98.0 F Pulse Rate 91 82 65 Respiratory Rate 18 18 13 Blood Pressure 146/80 H 113/69 102/58 L Pulse Oximetry 97 96 97 Oxygen Delivery Method Room Air Room Air Room Air 09/05/22 02:50 09/05/22 05:48 09/05/22 07:09 Temperature 98.2 F 98.0 F 97.7 F Pulse Rate 71 73 68 Respiratory Rate 17 14 12 Blood Pressure 125/75 116/62 126/80 Pulse Oximetry 97 98 98 Oxygen Delivery Method Room Air Room Air Room Air BMI result Body Mass Index 49.9 vss Appearance: Alert.? Oriented X3.? No acute distress.? Head: Normocephalic, atraumatic, no step-offs or deformities Eyes: Pupils equal, round and reactive to light.? CVS: Normal heart rate and rhythm.? Pulses normal.?+ discomfort with palpation of anterior chest wall in the substernal region Respiratory: No respiratory distress.? Breath sounds normal.? Abdomen: Soft and nontender.? Skin: Skin warm and dry.? Normal skin color.? Normal skin turgor.? Extremities: No lower extremity edema.? No calf ttp, negative ivonne. 5/5 strength to bilateral upper and lower extremities Neuro: Oriented X 3.? No motor deficit.? No sensory deficit. CN 2-12 intact Course Course Course Narrative: This is a rapid medical exam: Additional HPI, ROS, PE not included below will be deferred to primary provider. Patient is a 42-year-old male presenting to the ED with complaint of chest pain and dyspnea for the past 3 weeks which has progr essively worsened. Also reports palpitations, states is on medication for his blood pressure. Reports intermittent nausea, denies vomiting. Denies abdominal pain. Plan: EKG, labs, CXR Reevaluation(s) Reevaluation #1: CBC within normal limits. Chemistry unremarkable. Negative tropes, heart score of 1, nonischemic EKG unlikely ACS. Second troponin pending. D-dimer negative, patient PERC negative. Low suspicion for PE history and physical exam not consistent with pulmonary embolism. Likely musculoskeletal in nature. Toradol given with good relief. Educated patient on diagnosis and treatment plan, answered all question, patient verbalizes understanding. At this time patient will be discharged home, advised to return with new or worsening symptoms. Educated on worrisome signs and symptoms and when to return. At this time I feel comfortable discharge home. Time: 08:15 Medical Decision Making Medical Decision Making [facility] Narrative: 0700 42-year-old male presents with substernal nonradiating chest pain for the past 3 weeks worsened with inspiration Physical exam discomfort with palpation of anterior chest wall in the substernal region This is likely costochondritis versus pericarditis versus noncardiac related chest pain. Unlikely PE, PNA, CHF, ACS, dissection, abdominal aortic aneurysm. Plan at this time labs, imaging Differential Diagnosis Differential Diagnoses: The differential diagnosis associated with the presentation includes This is likely costochondritis versus pericarditis versus noncardiac related chest pain. Unlikely PE, PNA, CHF, ACS, dissection, abdominal aortic aneurysm. Admission/Observation Consideration of admission/observation: Escalation of care including admission/observation considered Unlikely Lab Data [facility] Lab Attestation statement: I reviewed the patient's lab results. 09/04/22 18:58 09/04/22 18:58 Labs: Lab Results 09/04/22 09/04/22 09/04/22 Range/Units 18:58 18:58 18:58 WBC 7.8 (4.8-10.8) X10*3/uL RBC 5.57 (4.60-5.80) X10*6/uL Hgb 15.7 (14.0-18.0) g/dl Hct 48.1 (42.0-52.0) % MCV 86.4 (80.0-98.0) fL MCH 28.2 (27.0-33.0) pg MCHC 32.6 (31.0-36.0) g/dl RDW 13.0 (11.0-16.0) % Plt Count 337 (160-400) X10*3/uL MPV 9.6 (9.4-12.4) fL Immature Gran % (Auto) 0.3 (0.0-0.4) % Neut % (Auto) 63.2 (45-73) % Lymph % (Auto) 28.1 (20-40) % [place] % (Auto) 5.5 (2-11) % Eos % (Auto) 2.4 (0-4) % Baso % (Auto) 0.5 (0-2) % Lymph # (Auto) 2.2 (1.2-4.9) X10*3/uL [place] # (Auto) 0.4 (0.1-1.2) X10*3/uL Eos # (Auto) 0.2 (0.0-0.4) X10*3/uL Baso # (Auto) 0.0 (0.0-0.2) X10*3/uL Abs Immat Gran (auto) 0.02 (0.00-0.03) X10*3/uL Absolute Neuts (auto) 4.9 (2.0-8.3) x10*3/uL Absolute Nucleated RBC 0.000 (0.0-0.012) X10*3/uL Nucleated RBC % (auto) 0.0 (0.0-0.2) /100WBC D-Dimer High Sensitivty NG/ML Sodium 139 (135-145) mmol/L Potassium 4.1 (3.3-5.1) mmol/L Chloride 105 (96-108) mmol/L Carbon Dioxide 23 (22-29) mmol/L Anion Gap 15 (12-20) BUN 14 (9-16) mg/dL Creatinine 1.12 (0.5-1.4) mg/dL Estim Creat Clear Calc 124.7 Estimated GFR > 60 Random Glucose 122 H (60-115) mg/dL Calcium 9.1 (8.4-10.2) mg/dL Total Bilirubin 0.5 (0.0-1.0) mg/dL AST 24 (5-37) U/L ALT 32 (0-40) U/L Alkaline Phosphatase 58 (39-117) U/L Troponin I High Sens < 2.7 (<3.5-35.0) ng/L Total Protein 7.5 (6.5-8.0) g/dL Albumin 4.1 (3.5-5.0) g/dL 09/05/22 09/05/22 Range/Units 07:31 07:31 WBC (4.8-10.8) X10*3/uL RBC (4.60-5.80) X10*6/uL Hgb (14.0-18.0) g/dl Hct (42.0-52.0) % MCV (80.0-98.0) fL MCH (27.0-33.0) pg MCHC (31.0-36.0) g/dl RDW (11.0-16.0) % Plt Count (160-400) X10*3/uL MPV (9.4-12.4) fL Immature Gran % (Auto) (0.0-0.4) % Neut % (Auto) (45-73) % Lymph % (Auto) (20-40) % [place] % (Auto) (2-11) % Eos % (Auto) (0-4) % Baso % (Auto) (0-2) % Lymph # (Auto) (1.2-4.9) X10*3/uL [place] # (Auto) (0.1-1.2) X10*3/uL Eos # (Auto) (0.0-0.4) X10*3/uL Baso # (Auto) (0.0-0.2) X10*3/uL Abs Immat Gran (auto) (0.00-0.03) X10*3/uL Absolute Neuts (auto) (2.0-8.3) x10*3/uL Absolute Nucleated RBC (0.0-0.012) X10*3/uL Nucleated RBC % (auto) (0.0-0.2) /100WBC D-Dimer High Sensitivty < 150 NG/ML Sodium (135-145) mmol/L Potassium (3.3-5.1) mmol/L Chloride (96-108) mmol/L Carbon Dioxide (22-29) mmol/L Anion Gap (12-20) BUN (9-16) mg/dL Creatinine (0.5-1.4) mg/dL Estim Creat Clear Calc Estimated GFR Random Glucose (60-115) mg/dL Calcium (8.4-10.2) mg/dL Total Bilirubin (0.0-1.0) mg/dL AST (5-37) U/L ALT (0-40) U/L Alkaline Phosphatase (39-117) U/L Troponin I High Sens < 2.7 (<3.5-35.0) ng/L Total Protein (6.5-8.0) g/dL Albumin (3.5-5.0) g/dL Independent Interpretation I performed an independent interpretation of an: EKG (Ventricular rate of 81, NM normal, QRS normal, QT/QTC normal. No ST elevations or inversions concerning for acute ischemia.) and Plain X-Ray Radiology Impression Discussion of test interpretation with radiology: I have reviewed the radiologist's reading. Core Measures AMI core measures followed: Yes Measure exclusions: not indicated Critical Care Time Critical Care Time Critical Care Time: No Discharge Plan Discharge Clinical Impression: Anterior chest wall pain Patient Disposition: Home, Self-Care Instructions: Chest Pain (ED), Chest Wall Pain (ED) Additional Instructions: Take your medications as prescribed. If you were prescribed antibiotics today, it is important that you take your medication to their entirety, do not skip any doses, do not finish them early. Follow-up with your primary care provider this week. Follow-up with cardiology if needed. Return to the emergency department with new or worsening symptoms. Such as fevers, chills, chest pain, shortness of breath, nausea, vomiting, dizziness, headache, vision changes, lethargy In case of emergency call 911 Cardiac enzymes look good. Screening test for blood clot is negative. I suspect this is musculoskeletal. Toradol has been sent to your pharmacy, you tolerated this well in the department. Please take this as prescribed do not take this with ibuprofen, or other NSAIDs, do not mix this with alcohol. Side effects of this medication including increased risk for bleeding and possible kidney injury. Prescriptions: New ketorolac 10 mg tablet 10 mg PO TID PRN (Reason: pain) 5 Days Qty: 15 0RF No Action albuterol sulfate 90 mcg/actuation HFA aerosol inhaler 2 puff inhalation Q4-6H PRN (Reason: shortness of breath or wheezing) Qty: 6.7 0RF Referrals: [facility] [Primary Care Provider] - 2 days Stand Alone Forms: Work/School Release
[2022-09-04 18:26] VITALS: BP 146/80; PULSE 91; RESP 18; TEMP 36.2; O2SAT 97; BMI 49.9
[2022-09-04 19:23] LABS: MANUAL DIFF FLAG NO
[2022-09-04 19:24] LABS: Basophils Percent Auto 0.5 % (0-2); Eosinophils Absolute Auto 0.2 X10*3/uL (0.0-0.4); Eosinophils Percent Auto 2.4 % (0-4); Hematocrit 48.1 % (42.0-52.0); Hemoglobin 15.7 g/dl (14.0-18.0); Imm Gran Abs Auto 0.02 X10*3/uL (0.00-0.03); Imm Gran Pct Auto 0.3 % (0.0-0.4); Lymphocytes Absolute Auto 2.2 X10*3/uL (1.2-4.9); Lymphocytes Percent Auto 28.1 % (20-40); Mean Corpuscular HGB Conc 32.6 g/dl (31.0-36.0); Mean Corpuscular Hemoglobin 28.2 pg (27.0-33.0); Mean Corpuscular Volume 86.4 fL (80.0-98.0); Mean Platelet Volume 9.6 fL (9.4-12.4); Monocytes Absolute Auto 0.4 X10*3/uL (0.1-1.2); Monocytes Percent Auto 5.5 % (2-11); Neutrophils Absolute Auto 4.9 x10*3/uL (2.0-8.3); Neutrophils Percent Auto 63.2 % (45-73); Platelet Count 337 X10*3/uL (160-400); Red Blood Count 5.57 X10*6/uL (4.60-5.80); White Blood Count 7.8 X10*3/uL (4.8-10.8)
[2022-09-04 19:49] LABS: Alanine Aminotransferase 32 U/L (0-40); Albumin Level 4.1 g/dL (3.5-5.0); Alkaline Phosphatase 58 U/L (39-117); Anion Gap 15 (12-20); Aspartate Amino Transferase 24 U/L (5-37); Bilirubin Total 0.5 mg/dL (0.0-1.0); Blood Urea Nitrogen 14 mg/dL (9-16); Calcium 9.1 mg/dL (8.4-10.2); Carbon Dioxide 23 mmol/L (22-29); Chloride 105 mmol/L (96-108); Creatinine Clr Calc Pharmacy 124.7; Estimated Glomerular Filt Rate > 60; Glucose Random 122 mg/dL (60-115); Potassium 4.1 mmol/L (3.3-5.1); Sodium 139 mmol/L (135-145); Total Protein 7.5 g/dL (6.5-8.0)
[2022-09-04 20:02] LABS: Troponin-I High Sensitivity < 2.7 ng/L (<3.5-35.0)
[2022-09-04 23:47] VITALS: BP 113/69; PULSE 82; RESP 18; TEMP 36.3; O2SAT 96
[2022-09-05 01:14] VITALS: BP 102/58; PULSE 65; RESP 13; TEMP 36.7; O2SAT 97
--- NOTE | 2022-09-05 01:40 | PC.NURSE ---
pt a&o, no sob, chest discomfort 06/17. Denies any n/v/d. pt placed on bedside monitor and changed over into hospital attire. Will continue to monitor.
[2022-09-05 02:50] VITALS: BP 125/75; PULSE 71; RESP 17; TEMP 36.8; O2SAT 97
--- NOTE | 2022-09-05 03:54 | PC.NURSE ---
Pt sleeping, no sign of distress.
--- NOTE | 2022-09-05 05:03 | PC.NURSE ---
pt is sleeping, no sign of respiratory or cardiac distress, pt remain on bedside monitor, Will continue to monitor.
[2022-09-05 05:48] VITALS: BP 116/62; PULSE 73; RESP 14; TEMP 36.7; O2SAT 98
--- NOTE | 2022-09-05 06:37 | PC.NURSE ---
Pt is sleeping no sign of distress or chest pain at this time. pt remain on the bedside monitor. Will continue to monitor.
[2022-09-05 07:09] VITALS: BP 126/80; PULSE 68; RESP 12; TEMP 36.5; O2SAT 98
[2022-09-05 07:46] LABS: D Dimer High Sensitivity < 150 NG/ML
[2022-09-05 07:58] LABS: Troponin-I High Sensitivity < 2.7 ng/L (<3.5-35.0)
== END 2022-09-05 08:37 | disposition home or self-care (01) ==
PROVIDERS: Physician Assistant; Registered Nurse Emergency; Emergency Provider Student in an Organized Health Care Education/Training Program
DX: R07.89 Other chest pain (principal); Z79.899 Other long term (current) drug therapy
CPT/HCPCS: 36415; 71045; 71046; 80053; 84484; 85025; 85379; 93005; 99283; 99285

== ENCOUNTER → 2022-09-04 17:52 | Outpatient (BNV) | payer MEDICAID, SELFPAY | PROVIDERS: Emergency Provider Student in an Organized Health Care Education/Training Program; Visit Provider Internal Medicine Cardiovascular Disease | DX: I44.4 Left anterior fascicular block (principal); R94.31 Abnormal electrocardiogram [ECG] [EKG] | CPT/HCPCS: 93010 ==

== ENCOUNTER → 2022-09-29 13:36 | Outpatient (BNVA) | payer SELFPAY | PROVIDERS: Visit Provider Physician Assistant Medical | DX: Z02.79 Encounter for issue of other medical certificate (principal) ==

== ENCOUNTER 2022-12-11 10:48 | Outpatient (REF) | payer MEDICAID, SELFPAY ==
[2022-12-11 14:14] LABS: Alanine Aminotransferase 29 U/L (0-40); Albumin Level 4.1 g/dL (3.5-5.0); Alkaline Phosphatase 58 U/L (39-117); Amylase 49 U/L (28-100); Aspartate Amino Transferase 27 U/L (5-37); Bilirubin Direct 0.2 mg/dL (0.0-0.5); Bilirubin Total 0.7 mg/dL (0.0-1.0); Lipase 17 U/L (8-78); Total Protein 7.3 g/dL (6.5-8.0)
[2022-12-11 14:16] LABS: TSH reflex Free T4 0.38 uIU/mL (0.32-4.0)
== END 2022-12-11 10:49 | disposition home or self-care (01) ==
LOC: HO.LAB 10:48
PROVIDERS: Visit Provider Nurse Practitioner
DX: Z01.818 Encounter for other preprocedural examination (principal); K21.9 Gastro-esophageal reflux disease without esophagitis; R10.13 Epigastric pain; E66.01 Morbid (severe) obesity due to excess calories; G47.33 Obstructive sleep apnea (adult) (pediatric); Z86.19 Personal history of other infectious and parasitic diseases
CPT/HCPCS: 36415; 80076; 82150; 83690; 84443; 99212

== ENCOUNTER 2022-12-11 10:48 | Outpatient (AMB) | payer MEDICAID, SELFPAY ==
--- NOTE | 2022-12-11 10:51 | A.OFFVIS_ITS ---
Intake Vital Signs 3 12/11/22 11:10 Height 5 ft 9 in Weight 329 lb 12.984 oz BMI 48.7 BP 126/71 Blood Pressure Location Rt brachial Position Sitting Pulse 77 Intake Visit Reasons: Gastroesophageal reflux disease (GERD) Intake Note: Patient presents to in office visit today as a new patient for GERD. CC: Patient c/o heartburn, dry cough, itchy throat , epigastric burning and pain, and nausea. Onset of symptoms about 5 months ago. Denies other GI symptoms today. [employer] Required: Yes Accompanied by: slf Allergies No Known Allergies Allergy (Verified 01/13/23 11:34) HPI Gastroesophageal reflux disease (GERD) 2 HPI0 Details 42-year-old male here for initial evalua tion of GERD. He is referred [facility] [place] [facility]. PMX Asthma TRAV Smoker Morbid obesity Hypertension High cholesterol Pre diabetes Chronic back pain Allergic rhinitis GERD History of H pylori infection Left inguinal hernia * SURGICAL HISTORY Nasal surgery nasal septal reconstruction status post trauma * ALLERGIES : NKDA * LABS SUPPLIED BY PCP: 09/04/2022 UNREMARKABLE CBC, UNREMARKABLE renal panel, AST/ALT with a normal alk-phos and total bilirubin, TODAYS VISIT [place] #Jennie Saucedo The problem started about 6 mos ago with a lot of nausea and a burning sensation. This seems to be the same when he eats and when his stomach is empty. His tells him that his breath smells acid like. This was of sudden onset. He can not ID any med changes, illness or diet changes preceding this. HIs sx are worse with spicy foods. The HB is worse in the afternoons. He is having some early satiety and epigastric pain. His stools have been softer but not watery. He has gained weight recently, he is unsure how much but he notices that when he gains weight it is very quickly and when he is over 330 his back hurts as well. His back also hurts 31/08. He has been taking more motrin along with his tramadol for his back - another c/f. He is on pantoprazole 40mg qd and this has been prior to the 6 mos onset. He has occasional choking on his own saliva and an itching in my throat that makes me cough. He was dx'ed with HP last year at his PCP office and he was treated with abx and says that retesting was negative. His mother also suffers HB. NO known FHX of stomach or esophageal cancer. Return office visit in 4 weeks [facility] Medical History Nasal septum fracture HTN (hypertension) Surgical History S/P nasal surgery Social History Alcohol intake: never Tobacco use type: Cigarette Review of Systems Const Denies fatigue, Denies fever(s), Denies night sweats, Denies poor appetite, Reports weight gain and Denies weight loss ENT Reports Normal hearing present, Denies dental pain, Reports dysphagia, Denies hearing loss, Reports hoarseness, Denies mouth pain, Denies odynophagia, Reports sore throat, Denies throat swelling, Denies tongue swelling and Reports other (Dentition adequate) Card Reports no additional complaints Resp Reports cough GI Reports abdominal pain, Denies melena, Denies bloating, Denies hematochezia, Denies constipation, Denies GI cramping, Reports dysphagia, Denies excessive flatus, Denies early satiety, Reports heartburn, Denies diarrhea, Denies nausea, Denies odynophagia, Denies vomiting and Denies hematemesis Musc Reports back pain Skin/Breast Denies pruritus, Denies lesions, Denies rash and Denies jaundice Neuro Reports Normal hearing present and Denies Abnormal speech present Endo Denies fatigue Aller/Immun Denies throat swelling and Denies tongue swelling Physical Exam Vital Signs: Last Vital Signs Pulse 77 12/11/22 11:10 BP 126/71 12/11/22 11:10 BMI result Body Mass Index 48.7 Const General: cooperative, no acute distress, well developed and well groomed Nutritional Appearance: well nourished and obese morbidly obese Orientation/consciousness: oriented to person, oriented to place and oriented to time Limitations: language barrier HEENT Head: Yes normocephalic and Yes atraumatic Eyes General: appearance normal, both eyes and all related structures Pupils: Equal, round and reactive pupils present Neck Neck: Yes normal visual inspection and Yes no lymphadenopathy Thyroid: Thyroid normal Resp Effort & Inspection: normal respiratory effort and able to speak in complete sentences Auscultation: clear to auscultation bilaterally Cardio Rate: regular rate Rhythm: regular rhythm Heart sounds: Normal, physiologic split S2 sound present Peripheral pulses: radial pulses present and posterior tibial pulses present GI Inspection: No distended, Yes Abdominal panniculus present, Yes obesity and Yes scar Palpation (GI): Soft to palpation, nontender, no guarding, not rigid and No hepatosplenomegaly present Percussion: Yes normal to percussion Auscultation: normal bowel sounds Rectal Exam - Male: Yes deferred Abdomen image: 2 1. surgical scar Skin General skin exam: no rashes or lesions noted, turgor normal, skin not dry, no jaundice, No spider nevi and no striae Rashes: no rashes Nails: normal Neuro General: oriented to person, oriented to place and oriented to time Cranial nerves: Yes Equal, round and reactive pupils present and Yes Normal hearing present Speech: No Abnormal speech present Extrem General: Yes normal to inspection, No clubbing, No cyanosis and No edema Psych Appearance: grossly normal and well kempt Mental Status: mental status grossly normal Speech and movement: Normal speech and movement present Affect: normal affect Attitude: cooperative Thought process: Normal thought process present and not confabulating Thought content: Normal thought content present Insight: Limited insight present (Psych) Judgement: Limited judgement present (Psych) Assessment & Plan Assessment & Plan (1) GERD (gastroesophageal reflux disease): Code(s): K21.9 - Gastro-esophageal reflux disease without esophagitis Plan: . (2) Epigastric pain: Code(s): R10.13 - Epigastric pain (3) Morbid obesity: Code(s): E66.01 - Morbid (severe) obesity due to excess calories (4) Weight gain: Code(s): R63.5 - Abnormal weight gain (5) History of Helicobacter pylori infection: Comment: Negative stool antigen 12/2022 Code(s): Z86.19 - Personal history of other infectious and parasitic diseases (6) TRAV (obstructive sleep apnea): Code(s): G47.33 - Obstructive sleep apnea (adult) (pediatric) (7) Pre-op examination: Code(s): Z01.818 - Encounter for other preprocedural examination Plan [place] #Jennie Saucedo The problem started about 6 mos ago with a lot of nausea and a burning sensation. This seems to be the same when he eats and when his stomach is empty. His tells him that his breath smells acid like. This was of sudden onset. He can not ID any med changes, illness or diet changes preceding this. HIs sx are worse with spicy foods. The HB is worse in the afternoons. He is having some early satiety and epigastric pain. His stools have been softer but not watery. He has gained weight recently, he is unsure how much but he notices that when he gains weight it is very quickly and when he is over 330 his back hurts as well. His back also hurts 31/08. He has been taking more motrin along with his tramadol for his back - another c/f. He is on pantoprazole 40mg qd and this has been prior to the 6 mos onset. He has occasional choking on his own saliva and an itching in my throat that makes me cough. He was dx'ed with HP last year at his PCP office and he was treated with abx and says that retesting was negative. His mother also suffers HB. NO known FHX of stomach or esophageal cancer. Return office visit in 4 weeks Orders: Orders 2 US abdomen complete 12/11/22 K21.9 - Gastro-esophageal reflux disease without esophagitis, R10.13 - Epigastric pain TSH reflex Free T4 12/11/22 R10.13 - Epigastric pain, R63.5 - Abnormal weight gain Liver Panel 12/11/22 R10.13 - Epigastric pain, R63.5 - Abnormal weight gain Lipase 12/11/22 R10.13 - Epigastric pain, R63.5 - Abnormal weight gain H pylori Ag Stool 12/15/22 K21.9 - Gastro-esophageal reflux disease without esophagitis, R10.13 - Epigastric pain FL barium swallow 12/11/22 R10.13 - Epigastric pain, K21.9 - Gastro-esophageal reflux disease without esophagitis Amylase 12/11/22 R10.13 - Epigastric pain, R63.5 - Abnormal weight gain Medications: New 2 pantoprazole (Protonix) 40 mg PO BID 60 tabs 6RF 30 days K21.9 - Gastro- esophageal reflux disease without esophagitis, E66.01 - Morbid (severe) obesity due to excess calories famotidine (Pepcid) 40 mg PO BEDTIME 30 tabs 3RF K21.9 - Gastro-esophageal reflux disease without esophagitis Coding Level of Care Code New Pt Level 3 (05396) Diagnoses GERD (gastroesophageal reflux disease) K21.9 Epigastric pain R10.13 Morbid obesity E66.01 Weight gain R63.5 History of Helicobacter pylori infection Z86.19 TRAV (obstructive sleep apnea) G47.33 Pre-op examination Z01.818
[2022-12-11 11:10] VITALS: BP 126/71; PULSE 77; BMI 48.7
== END 2022-12-11 12:03 | disposition home or self-care (01) ==
PROVIDERS: Visit Provider Nurse Practitioner
DX: K21.9 Gastro-esophageal reflux disease without esophagitis (principal); R63.5 Abnormal weight gain; Z86.19 Personal history of other infectious and parasitic diseases
CPT/HCPCS: 99203

== ENCOUNTER 2022-12-15 15:22 | Outpatient (REF) | payer MEDICAID, SELFPAY | END 2022-12-15 15:23 | disposition home or self-care (01) | LOC: HO.LNP 15:22 | PROVIDERS: Visit Provider Nurse Practitioner | DX: K21.9 Gastro-esophageal reflux disease without esophagitis (principal); R10.13 Epigastric pain | CPT/HCPCS: 87338 ==

== ENCOUNTER 2023-01-13 11:24 | Outpatient (AMB) | payer MEDICAID, SELFPAY ==
--- NOTE | 2023-01-13 11:28 | MHC.OFFVIS ---
Intake Vital Signs 01/13/23 11:29 Height 5 ft 9 in Weight 321 lb BMI 47.4 BP 119/62 Blood Pressure Location Lt brachial Position Sitting Pulse 78 Intake Visit Reasons: 1 month follow up GERD, epigastric pain Intake Note: Patient presents to in office visit today in follow up of GERD and labs. CC: Patient reports he continues to have GERD, epigastric pain and burning, and nausea. He reports he continues to have heartburn but not as bad as before. Patient states the itchy throat and cough continues the same. Denies any new GI symptoms today. Tool Tender Required: Yes Accompanied by: Self / Same As Patient Allergies No Known Allergies Allergy (Verified 01/13/23 11:34) Medication List - Last Reconciled 01/13/23 by ISABEL Dawson cetirizine (All Day Allergy (cetirizine)) 10 mg PO DAILY PRN cholecalciferol (vitamin D3) 50 mcg PO DAILY famotidine (Pepcid) 40 mg PO BEDTIME ibuprofen 800 mg PO Q8H PRN lisinopril 20 mg PO DAILY pantoprazole (Protonix) 40 mg PO BID 30 days tramadol 100 mg PO Q6-8H PRN HPI 1 month follow up GERD, epigastric pain HPI Details Assessment & Plan (1) GERD (gastroesophageal reflux disease): Code(s): K21.9 - Gastro-esophageal reflux disease without esophagitis Plan: [place] #Jennie Saucedo The problem started about 6 mos ago with a lot of nausea and a burning sensation. This seems to be the same when he eats and when his stomach is empty. His tells him that his breath smells acid like. This was of sudden onset. He can not ID any med changes, illness or diet changes preceding this. HIs sx are worse with spicy foods. The HB is worse in the afternoons. He is having some early satiety and epigastric pain. His stools have been softer but not watery. He has gained weight recently, he is unsure how much but he notices that when he gains weight it is very quickly and when he is over 330 his back hurts as well. His back also hurts 24/. He has been taking more motrin along with his tramadol for his back - another c/f. He is on pantoprazole 40mg qd and this has been prior to the 6 mos onset. He has occasional choking on his own saliva and an itching in my throat that makes me cough. He was dx'ed with HP last year at his PCP office and he was treated with abx and says that retesting was negative. His mother also suffers HB. NO known FHX of stomach or esophageal cancer. Return office visit in 4 weeks (2) Morbid obesity: Code(s): E66.01 - Morbid (severe) obesity due to excess calories (3) Epigastric pain: Code(s): R10.13 - Epigastric pain (4) Weight gain: Code(s): R63.5 - Abnormal weight gain Orders: Orders US abdomen complet e Today K21.9 - Gastro-eso phageal reflux dis ease without esoph agitis, R10.13 - E pigastric pain TSH reflex Free T4 Today R10.13 - Epigastri c pain, R63.5 - Ab normal weight gain Liver Panel Today R10.13 - Epigastri c pain, R63.5 - Ab normal weight gain Lipase Today R10.13 - Epigastri c pain, R63.5 - Ab normal weight gain H pylori Ag Stool Today K21.9 - Gastro-eso phageal reflux dis ease without esoph agitis, R10.13 - E pigastric pain FL barium swallow Today K21.9 - Gastro-eso phageal reflux dis ease without esoph agitis, R10.13 - E pigastric pain Amylase Today R10.13 - Epigastri c pain, R63.5 - Ab normal weight gain Medications: New pantoprazole (Prot cheryl) 40 mg PO BID 30 d ays 60 tabs 6RF E66.01 - Morbid (s evere) obesity due to excess calorie s, K21.9 - Gastro- esophageal reflux disease without es ophagitis famotidine (Pepcid ) 40 mg PO BEDTIME 30 tabs 3RF K21.9 - Gastro-eso phageal reflux dis ease without esoph agitis LABS: Laboratory Tests 12/11/22 12/11/22 12/15/22 12:20 12:20 12:00 Total Bilirubin 0.7 Direct Bilirubin 0.2 AST 27 ALT 29 Alkaline Phosphata se 58 Amylase 49 Lipase 17 TSH 0.38 Stool H. pylori Ag negative ULTRASOUND OF THE ABDOMEN ? 03/01/2023 BARIUM SWALLOW End of January Today's visit [place] # Bridget Live id We all of the labs any seem to have any pancreatic dysfunction or any H pylori infection. We still have the ultrasound the barium swallow pending. Despite being able to take the pantoprazole twice a day and having famotidine for breakthrough he says that this is only improved his reflux slightly. Because of this I recommend that we consider ordering an upper endoscopy. I described the procedure and he is agreeable to this. He is unaware of the date for his radiology studies so I asked my staff to make sure he has the date and times before he leaves. We also discussed trying putting had blocks under the head of the bed to reduce possible nocturnal acid brash. His throat still remains very itchy and today he has a cough and in fact he has been taking DayQuil. Again, I educate him that this could be GERD but also could be chronic sinusitis. He is currently on cetirizine for allergies. For now our not going to have any change in therapies until we have more information. His asthma is well controlled, he has obstructive sleep apnea and denies any cardiac problems. There are no prior problems with anesthesia or sedation. There are no infectious disease problems. There is no known family history of chronic stomach problems or stomach cancer. At this point I will see him back after the study this booked in February. The endoscopy likely will not happen until April. [facility] Medical History Nasal septum fracture HTN (hypertension) Surgical History S/P nasal surgery Social History Alcohol intake: never Tobacco use type: Cigarette Review of Systems Const Denies fatigue, Denies fever(s), Denies night sweats, Denies poor appetite and Denies weight loss ENT Reports Normal hearing present, Denies dental pain, Denies dysphagia, Denies hearing loss, Denies mouth pain, Denies odynophagia, Reports sore throat, Denies throat swelling, Denies tongue swelling and Reports other (Dentition adequate) Card Reports no additional complaints Resp Reports cough GI Reports abdominal pain, Denies melena, Denies bloating, Denies hematochezia, Denies constipation, Denies GI cramping, Denies dysphagia, Denies excessive flatus, Denies early satiety, Reports heartburn, Denies diarrhea, Denies nausea, Denies odynophagia, Denies vomiting and Denies hematemesis Skin/Breast Denies pruritus, Denies lesions, Denies rash and Denies jaundice Neuro Reports Normal hearing present and Denies Abnormal speech present Endo Denies fatigue Aller/Immun Denies throat swelling and Denies tongue swelling Physical Exam Vital Signs: Last Vital Signs Pulse 78 01/13/23 11:29 BP 119/62 01/13/23 11:29 BMI result Body Mass Index 47.4 Const General: cooperative, no acute distress, well developed and well groomed Nutritional Appearance: well nourished and obese morbidly obese Orientation/consciousness: oriented to person, oriented to place and oriented to time Limitations: language barrier HEENT Head: Yes normocephalic and Yes atraumatic Eyes General: appearance normal, both eyes and all related structures Pupils: Equal, round and reactive pupils present Neck Neck: Yes normal visual inspection and Yes no lymphadenopathy Thyroid: Thyroid normal Resp Effort & Inspection: normal respiratory effort and able to speak in complete sentences Auscultation: clear to auscultation bilaterally Cardio Rate: regular rate Rhythm: regular rhythm Heart sounds: Normal, physiologic split S2 sound present Peripheral pulses: radial pulses present and posterior tibial pulses present GI Inspection: No distended, No Abdominal panniculus present and Yes obesity Palpation (GI): Soft to palpation, nontender, no guarding, not rigid and No hepatosplenomegaly present Percussion: Yes normal to percussion Auscultation: normal bowel sounds Rectal Exam - Male: Yes deferred Skin General skin exam: no rashes or lesions noted, turgor normal, skin not dry, no jaundice, No spider nevi and no striae Rashes: no rashes Nails: normal Neuro General: oriented to person, oriented to place and oriented to time Cranial nerves: Yes Equal, round and reactive pupils present and Yes Normal hearing present Speech: No Abnormal speech present Extrem General: Yes normal to inspection, No clubbing, No cyanosis and No edema Psych Appearance: grossly normal and well kempt Mental Status: mental status grossly normal Speech and movement: Normal speech and movement present Affect: normal affect Attitude: cooperative Thought process: Normal thought process present and not confabulating Thought content: Normal thought content present Insight: Limited insight present (Psych) Judgement: Limited judgement present (Psych) Results Reviewed Results Reviewed: Laboratory Tests 12/11/22 12/11/22 12/15/22 12:20 12:20 12:00 Total Bilirubin 0.7 Direct Bilirubin 0.2 AST 27 ALT 29 Alkaline Phosphatase 58 Amylase 49 Lipase 17 TSH 0.38 Stool H. pylori Ag negative Assessment & Plan Assessment & Plan (1) Epigastric pain: Code(s): R10.13 - Epigastric pain (2) Weight gain: Code(s): R63.5 - Abnormal weight gain (3) TRAV (obstructive sleep apnea): Code(s): G47.33 - Obstructive sleep apnea (adult) (pediatric) (4) Asthma: Code(s): J45.909 - Unspecified asthma, uncomplicated (5) Morbid obesity: Code(s): E66.01 - Morbid (severe) obesity due to excess calories (6) History of Helicobacter pylori infection: Comment: Negative stool antigen 12/2022 Code(s): Z86.19 - Personal history of other infectious and parasitic diseases (7) Pre-op examination: Code(s): Z01.818 - Encounter for other preprocedural examination Plan [place] # Bridget Live id We all of the labs any seem to have any pancreatic dysfunction or any H pylori infection. We still have the ultrasound the barium swallow pending. Despite being able to take the pantoprazole twice a day and having famotidine for breakthrough he says that this is only improved his reflux slightly. Because of this I recommend that we consider ordering an upper endoscopy. I described the procedure and he is agreeable to this. He is unaware of the date for his radiology studies so I asked my staff to make sure he has the date and times before he leaves. We also discussed trying putting had blocks under the head of the bed to reduce possible nocturnal acid brash. His throat still remains very itchy and today he has a cough and in fact he has been taking DayQuil. Again, I educate him that this could be GERD but also could be chronic sinusitis. He is currently on cetirizine for allergies. For now our not going to have any change in therapies until we have more information. His asthma is well controlled, he has obstructive sleep apnea and denies any cardiac problems. There are no prior problems with anesthesia or sedation. There are no infectious disease problems. There is no known family history of chronic stomach problems or stomach cancer. At this point I will see him back after the study this booked in February. The endoscopy likely will not happen until April. Orders: Orders EGD with [place] - GI Use Only Today G47.33 - Obstructive sleep apnea (adult) (pediatric), J45.909 - Unspecified asthma, uncomplicated, R10.13 - Epigastric pain, R63.5 - Abnormal weight gain Coding Level of Care Code Est Pt Level 4 (93728) Diagnoses Epigastric pain R10.13 Weight gain R63.5 TRAV (obstructive sleep apnea) G47.33 Asthma J45.909 Morbid obesity E66.01 History of Helicobacter pylori infection Z86.19 Pre-op examination Z01.818 Time Spent (min) 32 Comment Twenty-seven [id number] 5 chart
[2023-01-13 11:29] VITALS: BP 119/62; PULSE 78; BMI 47.4
== END 2023-01-13 13:04 | disposition home or self-care (01) ==
PROVIDERS: Visit Provider Nurse Practitioner
DX: R10.13 Epigastric pain (principal); R63.5 Abnormal weight gain
CPT/HCPCS: 99214

== ENCOUNTER → 2023-01-13 11:24 | Outpatient (BNVA) | payer MEDICAID, SELFPAY | PROVIDERS: Visit Provider Nurse Practitioner | DX: Z01.818 Encounter for other preprocedural examination (principal); R10.13 Epigastric pain; R63.5 Abnormal weight gain; J45.909 Unspecified asthma, uncomplicated; E66.01 Morbid (severe) obesity due to excess calories; G47.33 Obstructive sleep apnea (adult) (pediatric); Z86.19 Personal history of other infectious and parasitic diseases; Z68.42 Body mass index [BMI] 45.0-49.9, adult | CPT/HCPCS: 99212 ==

== ENCOUNTER 2023-01-20 09:04 | Outpatient (REF) | payer MEDICAID, SELFPAY ==
[2023-01-20 12:01] LABS: Estimated Average Glucose 117 mg/dL; Hemoglobin A1C 150.3605 umol/L; Hemoglobin A1c % 5.7 % (<6.0)
[2023-01-20 12:04] LABS: Anion Gap 10 (12-20); Blood Urea Nitrogen 16 mg/dL (9-16); Calcium 9.7 mg/dL (8.4-10.2); Carbon Dioxide 28 mmol/L (22-29); Chloride 107 mmol/L (96-108); Estimated Glomerular Filt Rate > 60; Glucose Random 108 mg/dL (60-115); Potassium 4.9 mmol/L (3.3-5.1); Sodium 140 mmol/L (135-145)
[2023-01-20 12:37] LABS: Vitamin B12 580 pg/mL (200-900)
== END 2023-01-20 09:05 | disposition home or self-care (01) ==
LOC: HO.HHCL 09:04
PROVIDERS: Visit Provider Emergency Medicine
DX: R20.2 Paresthesia of skin (principal)
CPT/HCPCS: 36415; 80048; 82607; 83036

== ENCOUNTER 2023-01-25 09:25 | Outpatient (REF) | payer MEDICAID, SELFPAY ==
[2023-01-25 12:12] LABS: Cholesterol 172 mg/dL (<200); HDL Cholesterol 35 mg/dL (>40); LDL Cholesterol Calculated 122 mg/dL (<100); Triglycerides 76 mg/dL (<150)
== END 2023-01-25 09:26 | disposition home or self-care (01) ==
LOC: HO.HHCL 09:25
PROVIDERS: Visit Provider Nurse Practitioner
DX: E78.5 Hyperlipidemia, unspecified (principal)
CPT/HCPCS: 36415; 80061

== ENCOUNTER 2023-01-28 13:16 | Emergency (ER) | payer OTHER, MEDICAID, SELFPAY ==
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
[2023-01-28 13:21] VITALS: BP 142/94; BP 149/99; PULSE 110; PULSE 90; RESP 18; TEMP 37.1; O2SAT 96; BMI 48.1
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
[2023-01-28 15:59] VITALS: BP 118/74; PULSE 80; RESP 20; TEMP 36.8; O2SAT 98
== END 2023-01-28 17:45 | disposition home or self-care (01) ==
PROVIDERS: Emergency Provider Emergency Medicine Emergency Medical Services
DX: S39.012A Strain of muscle, fascia and tendon of lower back, initial encounter (principal); S13.4XXA Sprain of ligaments of cervical spine, initial encounter; S60.222A Contusion of left hand, initial encounter; R51.9 Headache, unspecified; M54.2 Cervicalgia; M79.642 Pain in left hand; V43.52XA Car driver injured in collision with other type car in traffic accident, initial encounter; Y93.9 Activity, unspecified; Y92.410 Unspecified street and highway as the place of occurrence of the external cause; Y99.9 Unspecified external cause status
CPT/HCPCS: 70450; 72100; 72125; 73120; 99282; 99284

== ENCOUNTER 2023-02-03 11:33 | Day surgery (SDC) | payer OTHER, MEDICAID, SELFPAY ==
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
[2023-02-03 12:35] VITALS: BP 150/102; PULSE 81; RESP 16; TEMP 36.2; O2SAT 99; BMI 46.8
[2023-02-03] MEDS: Lactated Ringers 1,000 ML 80 ML IVCONT (13:07)
--- NOTE | 2023-02-03 14:13 | W.PM.OPN ---
Operative Note Operative Note Date of Service: 02/03/23 Narrative: Procedure Description: EGD Indication: GERD Anesthesia: MAC FLEXIBLE TRANSORAL UPPER GASTROINTESTINAL ENDOSCOPY UPPER ENDOSCOPY Consent: Indications for the procedure and potential complications of bleeding, perforation, reaction to medications and missed diagnosis were discussed with the patient and informed consent was obtained. Instrument: Olympus GIF H 190 J mid size upper endoscope Monitoring: Vital signs and clinical assessment, continuous EKG monitoring, Pulse oximetry, Carbon Dioxide monitoring and blood pressure monitoring were done throughout the procedure. Procedure: The patient was placed in the left lateral decubitis position and pre-procedure medications were administered and a bite block was placed. The endoscope was inserted into the mouth and advanced under direct vision to the third part of duodenum. A careful inspection was made as the upper endoscope was withdrawn including a retroflexed examination of the proximal stomach; Findings and interventions are described below. Findings: Larynx:normal Esophagus: GE junction at 40 cm, diaphragm hiatus at 42 cm, consistent with 2 cm sliding hiatal hernia, no varices or esophagitis. bx taken from GEJ, distal and proximal esophagus--non obstructive schatzki ring seen Stomach: Patchy gastric erythema. Biopsies were obtained. Grade 2 flap valve on retroflexed examination of the cardia. Duodenum: Normal bulb and descending duodenum, bx taken Intervention: Biopsies as noted above Impression/Findings: small hiatal hernia gastritis schatzki ring PLAN: await bx gerd precautions smoking cessation
[2023-02-03 14:40] VITALS: BP 125/86; PULSE 92; RESP 16; TEMP 37; O2SAT 97
[2023-02-03 14:55] VITALS: BP 117/72; PULSE 79; RESP 14; O2SAT 98
[2023-02-03 15:10] VITALS: BP 155/91; PULSE 77; RESP 14; TEMP 36.6; O2SAT 99
[2023-02-03 15:25] VITALS: BP 150/90; PULSE 79; RESP 16; TEMP 36.6; O2SAT 100
== END 2023-02-03 15:44 | disposition home or self-care (01) ==
PROVIDERS: Visit Provider Internal Medicine Gastroenterology
PROC: 0DJ08ZZ Inspection of Upper Intestinal Tract, Via Natural or Artificial Opening Endoscopic (ICD-10-PCS; CPT 43235; principal; 2023-02-03 13:50)
DX: K21.9 Gastro-esophageal reflux disease without esophagitis (principal); K29.50 Unspecified chronic gastritis without bleeding; K22.2 Esophageal obstruction; E66.01 Morbid (severe) obesity due to excess calories; Z68.42 Body mass index [BMI] 45.0-49.9, adult; K44.9 Diaphragmatic hernia without obstruction or gangrene; G47.33 Obstructive sleep apnea (adult) (pediatric); J45.909 Unspecified asthma, uncomplicated; I10 Essential (primary) hypertension; Z86.19 Personal history of other infectious and parasitic diseases; Z79.899 Other long term (current) drug therapy; Z79.1 Long term (current) use of non-steroidal anti-inflammatories (NSAID); F17.210 Nicotine dependence, cigarettes, uncomplicated
CPT/HCPCS: 43239; 88305; 88342; J2704

== ENCOUNTER → 2023-02-03 11:33 | Outpatient (BNV) | payer MEDICAID, SELFPAY | PROVIDERS: Visit Provider Internal Medicine Gastroenterology | DX: K22.2 Esophageal obstruction (principal); K29.70 Gastritis, unspecified, without bleeding; K44.9 Diaphragmatic hernia without obstruction or gangrene | CPT/HCPCS: 43239 ==

== ENCOUNTER 2023-02-16 09:21 | Outpatient (REF) | payer OTHER, MEDICAID, SELFPAY ==
--- NOTE | ~2023-02-16 | US_ITS ---
EXAMINATION: US ABDOMEN COMPLETE CLINICAL INFORMATION: Gastroesophageal reflux disease without esophagitis. COMPARISON: None available. TECHNIQUE: Real-time imaging of the abdominal viscera. Technically difficult study secondary to bowel gas and body habitus. FINDINGS: PANCREAS: Limited visualization of pancreatic tail and head. Imaged portion of pancreatic body is unremarkable. ABDOMINAL AORTA: Limited visualization. INFERIOR VENA CAVA: Visualized portions are normal. LIVER: Hepatomegaly, 16.5 cm. Increased hepatic parenchymal heterogeneity and echogenicity could be associated with hepatocellular disease/hepatic steatosis and severely limits visualization. Correlation with liver function tests and clinical exam recommended to determine further management. GALLBLADDER: No gallstones. Gallbladder wall thickness of 0.3 cm. COMMON BILE DUCT: Normal in caliber measuring 0.4 cm in diameter. RIGHT KIDNEY: No hydronephrosis. No renal calculi. Limited visualization. The kidney measures 11.8 cm in maximum dimension. LEFT KIDNEY: No hydronephrosis. No renal calculi. Limited visualization. The kidney measures 11.0 cm in maximum dimension. SPLEEN: Normal. The spleen measures 10.9 cm in maximum dimension. FREE FLUID: None. US/US abdomen complete IMPRESSION: 1. Hepatomegaly, 16.5 cm. Increased hepatic parenchymal heterogeneity and echogenicity could be associated with hepatocellular disease/hepatic steatosis and severely limits visualization. Correlation with liver function tests and clinical exam recommended to determine further management. 2. Limited visualization due to bowel gas and body habitus.
== END 2023-02-16 09:22 | disposition home or self-care (01) ==
LOC: HO.US 09:21
PROVIDERS: Visit Provider Nurse Practitioner
DX: R10.13 Epigastric pain (principal); K21.9 Gastro-esophageal reflux disease without esophagitis
CPT/HCPCS: 76700

== ENCOUNTER 2023-02-24 09:56 | Outpatient (AMB) | payer MEDICAID, SELFPAY ==
[2023-02-24 10:03] VITALS: BP 154/101; PULSE 75; BMI 46.6
--- NOTE | 2023-02-24 10:03 | MHC.OFFVIS ---
Intake Vital Signs 02/24/23 10:03 Height 5 ft 9 in Weight 315 lb 4.176 oz BMI 46.6 BP 154/101 H Blood Pressure Location Lt radial Position Sitting Pulse 75 Intake Visit Reasons: s/p egd Intake Note: Patient returns to in office visit today s/p EGD. CC: Patient states he continues to have nausea and mild heartburn. Denies other GI symptoms. He underwent EGD with Dr. Alva 02/03/23. Allergies No Known Allergies Allergy (Verified 02/03/23 12:34) HPI s/p egd HPI Details Assessment & Plan (1) Epigastric pain: Code(s): R10.13 - Epigastric pain (2) Weight gain: Code(s): R63.5 - Abnormal weight gain (3) TRAV (obstructive sleep apnea): Code(s): G47.33 - Obstructive sleep apnea (adult) (pediatric) (4) Asthma: Code(s): J45.909 - Unspecified asthma, uncomplicated (5) Morbid obesity: Code(s): E66.01 - Morbid (severe) obesity due to excess calories (6) History of Helicobacter pylori infection: Comment: Negative stool antigen 12/2022 Code(s): Z86.19 - Personal history of other infectious and parasitic diseases (7) Pre-op examination: Code(s): Z01.818 - Encounter for other preprocedural examination Plan [place] # Bridget Live id We all of the labs any seem to have any pancreatic dysfunction or any H pylori infection. We still have the ultrasound the barium swallow pending. Despite being able to take the pantoprazole twice a day and having famotidine for breakthrough he says that this is only improved his reflux slightly. Because of this I recommend that we consider ordering an upper endoscopy. I described the procedure and he is agreeable to this. He is unaware of the date for his radiology studies so I asked my staff to make sure he has the date and times before he leaves. We also discussed trying putting had blocks under the head of the bed to reduce possible nocturnal acid brash. His throat still remains very itchy and today he has a cough and in fact he has been taking DayQuil. Again, I educate him that this could be GERD but also could be chronic sinusitis. He is currently on cetirizine for allergies. For now our not going to have any change in therapies until we have more information. His asthma is well controlled, he has obstructive sleep apnea and denies any cardiac problems. There are no prior problems with anesthesia or sedation. There are no infectious disease problems. There is no known family history of chronic stomach problems or stomach cancer. At this point I will see him back after the study this booked in February. The endoscopy likely will not happen until April. Orders: Orders EGD with [place] - G I Use Only Today G47.33 - Obstructi ve sleep apnea (ad ult) (pediatric), J45.909 - Unspecif ied asthma, uncomp licated, R10.13 - Epigastric pain, R 63.5 - Abnormal we ight gain ULTRASOUND OF THE ABDOMEN 02/17/23 FINDINGS: PANCREAS: Limited visualization of pancreatic tail and head. Imaged portion of pancreatic body is unremarkable. ABDOMINAL AORTA: Limited visualization. INFERIOR VENA CAVA: Visualized portions are normal. LIVER: Hepatomegaly, 16.5 cm. Increased hepatic parenchymal heterogeneity and echogenicity could be associated with hepatocellular disease/hepatic steatosis and severely limits visualization. Correlation with liver function tests and clinical exam recommended to determine further management. GALLBLADDER: No gallstones. Gallbladder wall thickness of 0.3 cm. COMMON BILE DUCT: Normal in caliber measuring 0.4 cm in diameter. RIGHT KIDNEY: No hydronephrosis. No renal calculi. Limited visualization. The kidney measures 11.8 cm in maximum dimension. LEFT KIDNEY: No hydronephrosis. No renal calculi. Limited visualization. The kidney measures 11.0 cm in maximum dimension. SPLEEN: Normal. The spleen measures 10.9 cm in maximum dimension. FREE FLUID: None. US/US abdomen complete IMPRESSION: 1. Hepatomegaly, 16.5 cm. Increased hepatic parenchymal heterogeneity and echogenicity could be associated with hepatocellular disease/hepatic steatosis and severely limits visualization. Correlation with liver function tests and clinical exam recommended to determine further management. 2. Limited visualization due to bowel gas and body habitus. EGD 02/04/23 Findings: Larynx:normal Esophagus: GE junction at 40 cm, diaphragm hiatus at 42 cm, consistent with 2 cm sliding hiatal hernia, no varices or esophagitis. bx taken from GEJ, distal and proximal esophagus--non obstructive schatzki ring seen Stomach: Patchy gastric erythema. Biopsies were obtained. Grade 2 flap valve on retroflexed examination of the cardia. Duodenum: Normal bulb and descending duodenum, bx taken Intervention: Biopsies as noted above Impression/Findings: small hiatal hernia gastritis schatzki ring PLAN: await bx gerd precautions smoking cessation BIOPSY Received: 02/04/23 Diagnosis A. Duodenum, biopsy: Duodenal mucosa (2 pieces) with preserved villi and no specific change. B. Stomach, biopsy: Gastric antral and body mucosa (3 pieces) with minimal chronic inactive gastritis; negative for H pylori, intestinal metaplasia and dysplasia, and duodenal-type mucosa (1 piece, ? contaminant, endoscopic correlation necessary). C. Esophagogastric junction, biopsy: Squamocolumnar mucosa with mild chronic inactive inflammation; negative for intestinal metaplasia and dysplasia. D. Esophagus, distal, biopsy: Squamous mucosa with no specific change; no columnar mucosa present. E. Esophagus, proximal, biopsy: Squamous mucosa with no specific change; no columnar mucosa present BARIUM SWALLOW Scheduled for 03/01/2023 TODAY'S VISIT [place] #[id number] He continues to have a warm or burning pain concentrated in the gastric area but at times radiates lower and to the sides. He will have nausea, but also frequent HAs and dyspepsia. This is generally worse when he eats, but only occasionally has early satiety. While the symptoms are always present they do occur every day and they are not specific to time of day so much as whether not he is eaten. Recent labs show an A1C of 5.7% so not likely diabetes related gastroparesis. Idiopathic gastroparesis is always a possibility. He has no trouble with his bowels. The nausea is generally better on an empty stomach ronnie first thing in the am. We review the EGD and it does not show any compelling reason for the sx, same with the US. He has an upcoming barium swallow. At this point, I will also order a GES and HIDA scan as we are not coming up with any answers so far. The NICOLE component raises the possibility of abdominal migraines; although I would not want to make this leap until we rule out any other pathology [place] to the GI system. Of course there also is the possibility of psychogenic or metabolic causes of nausea. The patient is in agreement after I explained to him why I am ordering these procedures and seems to be keeping a good attitude despite the fact that we have not come up with answers yet. He continues on his pantoprazole twice a day. He also has famotidine available for breakthrough. He has an appointment already set up with me on the which is a couple of days after the barium swallow and we will keep this appointment. [facility] Medical History (Updated 02/24/23 @ 10:49 by ISABEL Dawson) Pre-op examination History of Helicobacter pylori infection Nasal septum fracture HTN (hypertension) Surgical History (Updated 02/24/23 @ 10:13 by Freddy Cole [facility]) History of esophagogastroduodenoscopy (EGD) S/P nasal surgery Social History Alcohol intake: never Patient Tobacco Use Status: Current everyday Tobacco user Tobacco use type: Cigarette Cigarettes Per Day: 5 Years Smoked: 4 Review of Systems Const Denies fatigue, Denies fever(s), Reports headache(s), Denies night sweats, Denies poor appetite and Denies weight loss ENT Reports Normal hearing present, Denies dental pain, Denies dysphagia, Reports headache(s), Denies hearing loss, Denies mouth pain, Denies odynophagia, Denies throat swelling, Denies tongue swelling and Reports other (Dentition adequate) Card Reports no additional complaints Resp Reports no additional complaints GI Reports abdominal pain, Denies melena, Denies bloating, Denies hematochezia, Denies constipation, Denies GI cramping, Denies dysphagia, Denies excessive flatus, Reports early satiety, Reports heartburn, Denies diarrhea, Reports nausea, Denies odynophagia, Denies vomiting and Denies hematemesis Skin/Breast Denies pruritus, Denies lesions, Denies rash and Denies jaundice Neuro Reports Normal hearing present, Denies Abnormal speech present and Reports headache(s) Endo Denies fatigue Aller/Immun Denies throat swelling and Denies tongue swelling Physical Exam Vital Signs: Last Vital Signs Pulse 75 02/24/23 10:03 BP 154/101 H 02/24/23 10:03 BMI result Body Mass Index 46.6 Const General: cooperative, no acute distress, well developed and well groomed Nutritional Appearance: well nourished and obese morbidly obese Orientation/consciousness: oriented to person, oriented to place and oriented to time Limitations: language barrier HEENT Head: Yes normocephalic and Yes atraumatic Eyes General: appearance normal, both eyes and all related structures Pupils: Equal, round and reactive pupils present Neck Neck: Yes normal visual inspection and Yes no lymphadenopathy Thyroid: Thyroid normal Resp Effort & Inspection: normal respiratory effort and able to speak in complete sentences Auscultation: clear to auscultation bilaterally Cardio Rate: regular rate Rhythm: regular rhythm Heart sounds: Normal, physiologic split S2 sound present Peripheral pulses: radial pulses present and posterior tibial pulses present GI Inspection: No distended, No Abdominal panniculus present and Yes obesity Palpation (GI): Soft to palpation, nontender, no guarding, not rigid and No hepatosplenomegaly present Percussion: Yes normal to percussion Auscultation: normal bowel sounds Rectal Exam - Male: Yes deferred Skin General skin exam: no rashes or lesions noted, turgor normal, skin not dry, no jaundice, No spider nevi and no striae Rashes: no rashes Nails: normal Neuro General: oriented to person, oriented to place and oriented to time Cranial nerves: Yes Equal, round and reactive pupils present and Yes Normal hearing present Speech: No Abnormal speech present Extrem General: Yes normal to inspection, No clubbing, No cyanosis and No edema Psych Appearance: grossly normal and well kempt Mental Status: mental status grossly normal Speech and movement: Normal speech and movement present Affect: normal affect Attitude: cooperative Thought process: Normal thought process present and not confabulating Thought content: Normal thought content present Insight: Limited insight present (Psych) Judgement: Limited judgement present (Psych) Results Reviewed Results Reviewed: ULTRASOUND OF THE ABDOMEN 02/17/23 FINDINGS: PANCREAS: Limited visualization of pancreatic tail and head. Imaged portion of pancreatic body is unremarkable. ABDOMINAL AORTA: Limited visualization. INFERIOR VENA CAVA: Visualized portions are normal. LIVER: Hepatomegaly, 16.5 cm. Increased hepatic parenchymal heterogeneity and echogenicity could be associated with hepatocellular disease/hepatic steatosis and severely limits visualization. Correlation with liver function tests and clinical exam recommended to determine further management. GALLBLADDER: No gallstones. Gallbladder wall thickness of 0.3 cm. COMMON BILE DUCT: Normal in caliber measuring 0.4 cm in diameter. RIGHT KIDNEY: No hydronephrosis. No renal calculi. Limited visualization. The kidney measures 11.8 cm in maximum dimension. LEFT KIDNEY: No hydronephrosis. No renal calculi. Limited visualization. The kidney measures 11.0 cm in maximum dimension. SPLEEN: Normal. The spleen measures 10.9 cm in maximum dimension. FREE FLUID: None. US/US abdomen complete IMPRESSION: 1. Hepatomegaly, 16.5 cm. Increased hepatic parenchymal heterogeneity and echogenicity could be associated with hepatocellular disease/hepatic steatosis and severely limits visualization. Correlation with liver function tests and clinical exam recommended to determine further management. 2. Limited visualization due to bowel gas and body habitus. EGD 02/04/23 Findings: Larynx:normal Esophagus: GE junction at 40 cm, diaphragm hiatus at 42 cm, consistent with 2 cm sliding hiatal hernia, no varices or esophagitis. bx taken from GEJ, distal and proximal esophagus--non obstructive schatzki ring seen Stomach: Patchy gastric erythema. Biopsies were obtained. Grade 2 flap valve on retroflexed examination of the cardia. Duodenum: Normal bulb and descending duodenum, bx taken Intervention: Biopsies as noted above Impression/Findings: small hiatal hernia gastritis schatzki ring PLAN: await bx gerd precautions smoking cessation BIOPSY Received: 02/04/23 Diagnosis A. Duodenum, biopsy: Duodenal mucosa (2 pieces) with preserved villi and no specific change. B. Stomach, biopsy: Gastric antral and body mucosa (3 pieces) with minimal chronic inactive gastritis; negative for H pylori, intestinal metaplasia and dysplasia, and duodenal-type mucosa (1 piece, ? contaminant, endoscopic correlation necessary). C. Esophagogastric junction, biopsy: Squamocolumnar mucosa with mild chronic inactive inflammation; negative for intestinal metaplasia and dysplasia. D. Esophagus, distal, biopsy: Squamous mucosa with no specific change; no columnar mucosa present. E. Esophagus, proximal, biopsy: Squamous mucosa with no specific change; no columnar mucosa present Assessment & Plan Assessment & Plan (1) Nausea: Code(s): R11.0 - Nausea (2) Epigastric pain: Code(s): R10.13 - Epigastric pain (3) GERD (gastroesophageal reflux disease): Code(s): K21.9 - Gastro-esophageal reflux disease without esophagitis Plan [place] #[id number] He continues to have a warm or burning pain concentrated in the gastric area but at times radiates lower and to the sides. He will have nausea, but also frequent HAs and dyspepsia. This is generally worse when he eats, but only occasionally has early satiety. While the symptoms are always present they do occur every day and they are not specific to time of day so much as whether not he is eaten. Recent labs show an A1C of 5.7% so not likely diabetes related gastroparesis. Idiopathic gastroparesis is always a possibility. He has no trouble with his bowels. The nausea is generally better on an empty stomach ronnie first thing in the am. We review the EGD and it does not show any compelling reason for the sx, same with the US. He has an upcoming barium swallow. At this point, I will also order a GES and HIDA scan as we are not coming up with any answers so far. The NICOLE component raises the possibility of abdominal migraines; although I would not want to make this leap until we rule out any other pathology [place] to the GI system. Of course there also is the possibility of psychogenic or metabolic causes of nausea. The patient is in agreement after I explained to him why I am ordering these procedures and seems to be keeping a good attitude despite the fact that we have not come up with answers yet. He continues on his pantoprazole twice a day. He also has famotidine available for breakthrough. He has an appointment already set up with me on the which is a couple of days after the barium swallow and we will keep this appointment Orders: Orders NM gastric emptying study Today R10.13 - Epigastric pain, R11.0 - Nausea NM hepatobiliary w pharm Today R10.13 - Epigastric pain, R11.0 - Nausea Coding Level of Care Code Est Pt Level 4 (41692) Diagnoses Nausea R11.0 Epigastric pain R10.13 GERD (gastroesophageal reflux disease) K21.9 Time Spent (min) 33
== END 2023-02-24 11:30 | disposition home or self-care (01) ==
PROVIDERS: Visit Provider Nurse Practitioner
DX: R11.0 Nausea (principal); R10.13 Epigastric pain; K21.9 Gastro-esophageal reflux disease without esophagitis
CPT/HCPCS: 99214

== ENCOUNTER → 2023-02-24 09:56 | Outpatient (BNVA) | payer OTHER, MEDICAID, SELFPAY | PROVIDERS: Visit Provider Nurse Practitioner | DX: R10.13 Epigastric pain (principal); R11.0 Nausea; K21.9 Gastro-esophageal reflux disease without esophagitis; Z79.899 Other long term (current) drug therapy; Z98.890 Other specified postprocedural states | CPT/HCPCS: 99212 ==

== ENCOUNTER → 2023-04-05 10:56 | Outpatient (REF) | payer MEDICAID, SELFPAY ==
--- NOTE | ~2023-04-05 | NM_ITS ---
EXAMINATION: BILIARY TRACT IMAGING STUDY WITH CCK CLINICAL INFORMATION: Epigastric pain. Gastroesophageal reflux disease without esophagitis.. COMPARISON: Abdominal ultrasound done on 02/26/2023.. TECHNIQUE: Serial gamma scintillation camera images were obtained over the abdomen for a total observation period of 60 minutes following the intravenous administration of 4.9 mCi Tc-99m mebrofenin. FINDINGS: There is good concentration of activity in the liver by 5 minutes post injection. Biliary activity is visualized by 10 minutes. The gallbladder is well visualized by 20 minutes. Small bowel is well visualized by 25 minutes. At 60 minutes post radiopharmaceutical injection, a 30-minute infusion of 2.8 micrograms Sincalide was then begun and an additional 40 minutes of images were obtained. There is good emptying of the gallbladder. By the end of the study there is good clearance of activity from the liver and visualization of diffuse small bowel activity. The calculated gallbladder ejection fraction is 76% (Normal range of gallbladder ejection fraction is between 35-80%; GBEF <35% is considered biliary hypokinesia and >80% is considered biliary hyperkinesia; Ref. #1-Clinical Journal of Gastroenterology (2020) 14:1308?1317; Ref.#2-[email or web address]). NM/NM hepatobiliary w pharm IMPRESSION: Visualization of the gallbladder is evidence of a patent cystic duct and strong evidence against the diagnosis of acute cholecystitis. The common bile duct is patent. Gallbladder emptying and ejection fraction are normal. Liver function appears normal.
== END ==
LOC: HO.NUCMED 10:56
PROVIDERS: Visit Provider Nurse Practitioner
DX: R13.10 Dysphagia, unspecified (principal); R11.0 Nausea
CPT/HCPCS: 78227; A9537; J2805

== ENCOUNTER 2023-04-13 10:02 | Outpatient (AMB) | payer MEDICAID, SELFPAY ==
--- NOTE | 2023-04-13 10:04 | A.OFFVIS_ITS ---
Intake Vital Signs 04/13/23 10:05 Height 5 ft 9 in Weight 314 lb BMI 46.4 BP 112/67 Blood Pressure Location Lt brachial Position Sitting Pulse 81 Intake Visit Reasons: Follow up Scan Intake Note: Merlin returns to office in follow up of hepatobiliary scan. CC: Patient states he declined to have barium swallow done because the test takes 4 hours, and last time he had it done he felt his throat was sore after test. He reports having scratchy throat and having to cough from it. Hepatologist Required: Yes Hepatologist Name: Accompanied by: Allergies No Known Allergies Allergy (Verified 04/13/23 10:18) HPI Follow up Scan HPI Details Assessment & Plan (1) Nausea: Code(s): R11.0 - Nausea (2) Epigastric pain: Code(s): R10.13 - Epigastric pain (3) GERD (gastroesophageal reflux diseas e): Code(s): K21.9 - Gastro-esophageal reflux disease without esophagitis Plan [place] #[id number] He continues to have a warm or burning pain concentrated in the gastric area but at times radiates lower and to the sides. He will have nausea, but also frequent HAs and dyspepsia. This is generally worse when he eats, but only occasionally has early satiety. While the symptoms are always present they do occur every day and they are not specific to time of day so much as whether not he is eaten. Recent labs show an A1C of 5.7% so not likely diabetes related gastroparesis. Idiopathic gastroparesis is always a possibility. He has no trouble with his bowels. The nausea is generally better on an empty stomach ronnie first thing in the am. We review the EGD and it does not show any compelling reason for the sx, same with the US. He has an upcoming barium swallow. At this point, I will also order a GES and HIDA scan as we are not coming up with any answers so far. The NICOLE component raises the possibility of abdominal migraines; although I would not want to make this leap until we rule out any other pathology [place] to the GI system. Of course there also is the possibility of psychogenic or metabolic causes of nausea. The patient is in agreement after I explained to him why I am ordering these procedures and seems to be keeping a good attitude despite the fact that we have not come up with answers yet. He continues on his pantoprazole twice a day. He also has famotidine available for breakthrough. He has an appointment already set up with me on the which is a couple of days after the barium swallow and we will keep this appointment Orders: Orders NM gastric emptyin g study Today R10.13 - Epigastri c pain, R11.0 - Na usea NM hepatobiliary w pharm Today R10.13 - Epigastri c pain, R11.0 - Na usea Gastric emptying study Patient declined to do this study because of the length of time involved in waiting for the test to be completed Barium swallow HIDA scan 04/06/23 IMPRESSION: Visualization of the gallbladder is evidence of a patent cystic duct and strong evidence against the diagnosis of acute cholecystitis. The common bile duct is patent. Gallbladder emptying and ejection fraction are normal. Liver function appears normal. CORRESPONDENCE On 03/16/23 @ 14:31 Merna Frausto Wrote To JefferyMay Both he told me he will think about it. On 03/13/23 @ 14:00 Michelle Gil Wrote To Merna Frausto Which study is he refusing to do? Both the HIDA scan and the gastric emptying study are ordered. On 03/09/23 @ 12:21 Merna Frausto Wrote To JefferyMichelle Merlin is refusing to schedule his scan because it's done to early they only do them at 8 am because its a 4 hour study. Today's visit [place] # interprets per patient request. He says that his throat has been more scratchy recently. This went away for quite a while and he is uncertain if this has something to do with brushing his tongue in the morning which causes him to gag. He continues on his pantoprazole but he takes 80 mg in the morning and this seems to control his GERD well. He also has famotidine if he has breakthrough. He sniffling quite a lot today and coughing and I am wondering if his throat scratching has more to do with allergies and sinusitis then GERD. I suggest this to him and also advised him to use his inhaled steroid nasal spray every day because this does not work well if you use it p.r.n.. He is declined to do the gastric emptying study due that time, however his nausea is improving so I do not think this is necessary. We review the HIDA scan is gallbladder function is normal. He is found that a lot of his abdominal pain and nausea improved after he stopped eating spicy food which is said he was eating every day with every meal. I still think the barium swallow would be prudent, it appears that this was mistakenly entered under nuclear medicine that is probably why he has not received a phone call. Did have irritation in his throat after the last endoscopy so if we ever have to do this again we may need to consider having him gargle with lidocaine or some other measure to prevent irritation. Return office visit in 3 months and or after the barium swallow depending on the timing. He is also going to weight Management to consider bariatric surgery which likely would have a positive impact on his GERD. [facility] Medical History Pre-op examination History of Helicobacter pylori infection Nasal septum fracture HTN (hypertension) Surgical History History of esophagogastroduodenoscopy (EGD) S/P nasal surgery Social History Alcohol intake: never Patient Tobacco Use Status: Current everyday Tobacco user Tobacco use type: Cigarette Cigarettes Per Day: 5 Years Smoked: 4 Review of Systems Const Denies fatigue, Denies fever(s), Denies night sweats, Denies poor appetite and Denies weight loss ENT Details: scratcy throat Reports Normal hearing present, Denies dental pain, Denies dysphagia, Denies hearing loss, Denies mouth pain, Denies odynophagia, Reports post nasal drip, Denies throat swelling, Denies tongue swelling and Reports other (Dentition adequate) Card Reports no additional complaints Resp Reports no additional complaints GI Details: Denies abdominal pain, Denies melena, Denies bloating, Denies hematochezia, Denies constipation, Denies GI cramping, Denies dysphagia, Denies excessive flatus, Denies early satiety, Reports heartburn, Denies diarrhea, Reports nausea, Denies odynophagia, Denies vomiting and Denies hematemesis Skin/Breast Denies pruritus, Denies lesions, Denies rash and Denies jaundice Neuro Reports Normal hearing present and Denies Abnormal speech present Endo Denies fatigue Aller/Immun Denies throat swelling and Denies tongue swelling Physical Exam Vital Signs: Last Vital Signs Pulse 81 04/13/23 10:05 BP 112/67 04/13/23 10:05 BMI result Body Mass Index 46.4 Const General: cooperative, no acute distress, well developed and well groomed Nutritional Appearance: well nourished and obese morbidly obese Orientation/consciousness: oriented to person, oriented to place and oriented to time Limitations: No language barrier HEENT Head: Yes normocephalic and Yes atraumatic Eyes General: appearance normal, both eyes and all related structures Pupils: Equal, round and reactive pupils present Neck Neck: Yes normal visual inspection and Yes no lymphadenopathy Thyroid: Thyroid normal Resp Effort & Inspection: normal respiratory effort and able to speak in complete sentences Auscultation: clear to auscultation bilaterally Cardio Rate: regular rate Rhythm: regular rhythm Heart sounds: Normal, physiologic split S2 sound present Peripheral pulses: radial pulses present and posterior tibial pulses present GI Inspection: No distended, Yes Abdominal panniculus present and Yes obesity Palpation (GI): Soft to palpation, nontender, no guarding, not rigid and No hepatosplenomegaly present Percussion: Yes normal to percussion Auscultation: normal bowel sounds Rectal Exam - Male: Yes deferred Skin General skin exam: no rashes or lesions noted, turgor normal, skin not dry, no jaundice, No spider nevi and no striae Rashes: no rashes Nails: normal Neuro General: oriented to person, oriented to place and oriented to time Cranial nerves: Yes Equal, round and reactive pupils present and Yes Normal hearing present Speech: No Abnormal speech present Extrem General: Yes normal to inspection, No clubbing, No cyanosis and No edema Psych Appearance: grossly normal and well kempt Mental Status: mental status grossly normal Speech and movement: Normal speech and movement present Affect: normal affect Attitude: cooperative Thought process: Normal thought process present and not confabulating Thought content: Normal thought content present Insight: Fair insight present (Psych) and Limited insight present (Psych) Judgement: Fair judgement present (Psych) and Limited judgement present (Psych) Assessment & Plan Assessment & Plan (1) GERD (gastroesophageal reflux disease): Code(s): K21.9 - Gastro-esophageal reflux disease without esophagitis (2) Epigastric pain: Comment: This also improved after he gave up eating hot spicy food Code(s): R10.13 - Epigastric pain (3) Nausea: Comment: Seems to have resolved once he gave up hot spicy food Code(s): R11.0 - Nausea Plan [place] # interprets per patient request. He says that his throat has been more scratchy recently. This went away for quite a while and he is uncertain if this has something to do with brushing his tongue in the morning which causes him to gag. He continues on his pantoprazole but he takes 80 mg in the morning and this seems to control his GERD well. He also has famotidine if he has breakthrough. He sniffling quite a lot today and coughing and I am wondering if his throat scratching has more to do with allergies and sinusitis then GERD. I suggest this to him and also advised him to use his inhaled steroid nasal spray every day because this does not work well if you use it p.r.n.. He is declined to do the gastric emptying study due that time, however his nausea is improving so I do not think this is necessary. We review the HIDA scan is gallbladder function is normal. He is found that a lot of his abdominal pain and nausea improved after he stopped eating spicy food which is said he was eating every day with every meal. I still think the barium swallow would be prudent, it appears that this was mistakenly entered under nuclear medicine that is probably why he has not received a phone call. Did have irritation in his throat after the last endoscopy so if we ever have to do this again we may need to consider having him gargle with lidocaine or some other measure to prevent irritation. Return office visit in 3 months and or after the barium swallow depending on the timing. He is also going to weight Management to consider bariatric surgery which likely would have a positive impact on his GERD Coding Level of Care Code Est Pt Level 3 (59831) Diagnoses GERD (gastroesophageal reflux disease) K21.9 Epigastric pain R10.13 Nausea R11.0
[2023-04-13 10:05] VITALS: BP 112/67; PULSE 81; BMI 46.4
== END 2023-04-13 13:28 | disposition home or self-care (01) ==
PROVIDERS: Visit Provider Nurse Practitioner
DX: K21.9 Gastro-esophageal reflux disease without esophagitis (principal); R10.13 Epigastric pain; R11.0 Nausea
CPT/HCPCS: 99213

== ENCOUNTER → 2023-04-13 10:02 | Outpatient (BNVA) | payer MEDICAID, SELFPAY | PROVIDERS: Visit Provider Nurse Practitioner | DX: K21.9 Gastro-esophageal reflux disease without esophagitis (principal); R10.13 Epigastric pain; R11.0 Nausea | CPT/HCPCS: 99212 ==

== ENCOUNTER → 2023-04-28 10:06 | Outpatient (BNVA) | payer MEDICAID, SELFPAY | PROVIDERS: Visit Provider Physician Assistant Surgical ==

== ENCOUNTER 2023-05-04 09:54 | Outpatient (AMB) | payer MEDICAID, SELFPAY ==
[2023-05-04 09:57] VITALS: BP 154/80; PULSE 87; BMI 47.9
--- NOTE | 2023-05-04 09:57 | A.OFFVIS_ITS ---
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 He is a 43-year-old male with prior history of longstanding hyper tension, obesity, obstructive sleep apnea acid reflux disease vaping retrosternal chest pain which she describes as pressure for last many months. He said the pain is almost constant but gets worse with certain movement and in certain situations. However the discomfort is not exertional in nature stress-induced. He says the pain is not reproducible by pressing on it however the pain is reproducible by deep breathing. Patient has had workup done and EKG with no acute findings. Cardiology consult was sought because of the chest pain. Patient has no prior history of coronary artery disease or myocardial infarction. Said he does not exercise much due to low back issues. [facility] Medical History Pre-op examination History of Helicobacter pylori infection Nasal septum fracture HTN (hypertension) Surgical History History of esophagogastroduodenoscopy (EGD) S/P nasal surgery Social History Alcohol intake: never Patient Tobacco Use Status: Current everyday Tobacco user Tobacco use type: Cigarette Cigarettes Per Day: 5 Years Smoked: 4 Review of Systems Const Denies chills, Denies daytime sleepiness, Denies fatigue, Denies fever(s), Denie s frequent falls, Denies poor appetite, Denies snoring, Denies stops breathing during sleep, Denies weakness, Denies weight gain and Denies weight loss Eyes Denies loss of vision ENT Denies dizziness and Denies hearing loss Card Denies chest pain, Denies claudication, Denies leg edema, Denies lightheadedness, Denies palpitations, Denies dyspnea, Denies dyspnea on exertion and Denies orthopnea Resp Denies cough, Denies excessive phlegm production, Denies dyspnea, Denies dyspnea on exertion, Denies snoring and Denies wheezing GI Denies abdominal pain, Denies hematochezia, Denies change in bowel habits, Denies nausea and Denies vomiting Denies dysuria and Denies urinary frequency Musc Denies arthralgias, Denies muscle weakness, Denies numbness and Denies other (frequent falls) Skin/Breast Denies nail changes and Denies rash Neuro Denies Abnormal speech present, Denies dizziness, Denies frequent falls, Denies loss of vision, Denies memory loss, Denies numbness and Denies weakness Psych Denies depression and Denies memory loss Endo Denies fatigue and Denies palpitations Abdias/Lymph Reports easy bruising and Reports other (anemia) Aller/Immun Denies wheezing Physical Exam Vital Signs: Last Vital Signs Pulse 87 05/04/23 09:57 BP 154/80 H 05/04/23 09:57 BMI result Body Mass Index 47.9 Const General: cooperative, comfortable, no acute distress, well developed, alert and awake Nutritional Appearance: well nourished and obese morbidly obese Orientation/consciousness: patient oriented x3 Limitations: no limitations HEENT Head: Yes normocephalic and Yes atraumatic Neck Neck: Yes trachea midline, Yes supple and Yes no JVD Resp Effort & Inspection: normal respiratory effort Auscultation: clear to auscultation bilaterally Cardio Jugular venous distension: no JVD Palpation: normal PMI Rate: regular rate Rhythm: regular rhythm Heart sounds: S1 normal heart sound present, S2 normal heart sound present, no click, no gallops, no murmurs and no rubs GI Inspection: Yes obesity Auscultation: normal bowel sounds Skin General skin exam: no rashes or lesions noted Neuro General: patient oriented x3 and no focal motor deficits Speech: No Abnormal speech present Extrem General: Yes no clubbing, cyanosis or edema Psych Appearance: grossly normal Office Procedures EKG Details: EKG shows normal sinus rhythm with left axis deviation 87 beats per minute [id number], Complete Assessment & Plan Assessment & Plan (1) Atypical chest pain: Code(s): R07.89 - Other chest pain Plan: Patient with atypical chest pain which is sometimes reproducible with risk factors of morbid obesity, hypertension hyperlipidemia. EKG with chest pain does not show any acute ischemic changes. Likelihood of underlying coronary artery disease low although with risk factors would like to rule this out. Will suggest exercise treadmill stress test to evaluate for myocardial ischemia. Also suggest an echocardiogram to evaluate for LV systolic and diastolic function to evaluate for hypertensive heart disease as well as pulmonary hypertension. If these are within normal limits, no further cardiac workup is indicated and risk of cardiovascular morbidity mortality is low in the near future. Continue aggressive risk factor modification including aggressive weight loss program and improved activity level. Blood pressure is currently well optimized. Target goal LDL less than 100 mg/dL. Will follow up in the clinic in 6 weeks time, sooner p.r.n.. Thank you for allowing me to partake in his care Orders: Orders CA stress test Today R07.89 - Other chest pain CA echo transthoracic complete Today R07.89 - Other chest pain Coding Level of Care Code New Pt Level 3 (22683) Diagnoses Atypical chest pain R07. CPT Codes EKG - CPT: 36967-[id number], Complete ([id number])
== END 2023-05-04 10:25 | disposition home or self-care (01) ==
PROVIDERS: Referring Provider Internal Medicine Cardiovascular Disease; Visit Provider Internal Medicine Cardiovascular Disease
DX: R07.89 Other chest pain (principal)
CPT/HCPCS: 93010; 99203

== ENCOUNTER → 2023-05-04 09:54 | Outpatient (BNVA) | payer MEDICAID, SELFPAY | PROVIDERS: Visit Provider Internal Medicine Cardiovascular Disease | DX: R07.89 Other chest pain (principal) | CPT/HCPCS: 93005; 99202 ==

== ENCOUNTER 2023-05-26 16:08 | Outpatient (REF) | payer MEDICAID, SELFPAY ==
[2023-05-28 15:16] LABS: Buprenorphine 21 (H)
== END 2023-05-26 16:09 | disposition home or self-care (01) ==
LOC: HO.HHCLNP 16:08
PROVIDERS: Visit Provider Nurse Practitioner
DX: M54.50 Low back pain, unspecified (principal); G89.29 Other chronic pain
CPT/HCPCS: 80348; 80362

== ENCOUNTER 2023-06-11 07:49 | Outpatient (AMB) | payer MEDICAID, SELFPAY ==
--- NOTE | 2023-06-11 10:09 | MHC.OFFVISWM ---
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* Allergies No Known Allergies Allergy (Verified 06/11/23 10:11) Medication List - Last Reconciled 06/11/23 by Tera Rooney MD cetirizine (All Day Allergy (cetirizine)) 10 mg PO DAILY PRN cholecalciferol (vitamin D3) 50 mcg PO DAILY ibuprofen 800 mg PO Q8H PRN lisinopril 20 mg PO DAILY pantoprazole (Protonix) 40 mg PO BID 30 days tramadol 100 mg PO Q6-8H PRN HPI HPI 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*: Details: Start time: 10am, End time: 10.48am ?I spent 43 minutes speaking with the patient on the phone plus an additional 5 minutes reviewing and updating records for a total of 48 minutes HPI Comments Details: Previous weight loss efforts: self diet and exercise Wakes up: 4.30am, Sleeps: 11pm Breakfast: skips Lunch: 11am (fast food or rice) Dinner: 6pm (soup or fast food) Snacks: donut (8am), 8pm (cookie) Exercise: none Fluids: Coffee (1 cup/day with cream and sugar) PFSH Medical History (Updated 06/11/23 @ 10:17 by Tera Rooney MD) DJD (degenerative joint disease) Pre-op examination History of Helicobacter pylori infection Nasal septum fracture HTN (hypertension) Surgical History History of esophagogastroduodenoscopy (EGD) S/P nasal surgery Social History Alcohol intake: never Patient Tobacco Use Status: Current everyday Tobacco user Tobacco use type: Cigarette Cigarettes Per Day: 5 Years Smoked: 4 Telehealth Telehealth Telehealth Platform: Telephone Location of provider rendering services: practice address Location of patient: address on file Patient Identification confirmed using: Name, : Yes Telehealth method: voice only Patient verbally consented to treatment: Yes Patient verbally consented to billing insurance company: Yes Patient informed of any privacy concerns related to visit: Yes Minutes spent on Phone/Video with Pt.: 48 Assessment & Plan Assessment & Plan (1) Morbid obesity: Code(s): E66.01 - Morbid (severe) obesity due to excess calories Category: Medical Plan: 1.? Plan for lap sleeve gastrectomy. If diaphragmatic or ventral hernias are present at time of surgery, these will be repaired laparoscopically as well. Risks and complications were discussed in detail including possible conversion to an open procedure, anastomotic leak, bleeding requiring transfusion, small bowel obstruction, , DVT and pulmonary embolism, cardiac, or pulmonary complications, as intermediate accountant complications such as anastomotic ulcer, insufficient weight loss and vitamin deficiencies. I emphasized the importance of close follow-up, adherence to instructions and good communication. 2. Nutritional counseling. Start with 2 CELEBRATE REBUILD protein (buy at [facility]) shakes (ONE scoop EACH in 8oz low fat unsweetened almond milk each) at 6am-8am and 9am-11am, 2 protein bars (CELEBRATE protein bars, buy at [facility]) at 12pm-2pm and 3pm-5pm, dinner at 6pm (10 forks of protein and 10 forks of salad/vegetables) AND one more protein bar after dinner at 8pm-10pm. So you do 2 protein shakes, 3 protein bars and one meal per day. Meal to include lean meat (beef, fish, pork, turkey, chicken), or bahamian yogurt, or egg whites, or beans with a salad with olive oil and fruits (berries, pears, apples, kiwi). Avoid salt, breads, potatoes, rice, pasta, desserts. 3. Each shake would be drunk slowly, like coffee in a period of 2 hours. 4. Cut each bar in 4 pieces and eat each piece in 30min ?to make each bar last 2 hours. 5. I emphasized the importance of measuring accurately the food portion and measure it when serving the food in plate 6. The meal portions include 10 full-size forks of meat and 10 full-size forks of salad. You always eat the meat portion but you can replace up to 5 forks for salad/vegetables with rice, potatoes or pasta, or a fruit ?if you like. The less you do it the better weight loss will be. 7. One full-size fork is what it can be scooped on the fork without falling aside and not what can be bit with the fork. Use regular forks like those you find in a typical restaurant. 8.? Please send me weight measurements as soon as possible and then once a week. Always include your diet and exercise plan. 9. Start walking outside daily, tracking calories with a goal of 300 calories per day, daily. Goal is to burn 2000 calories per week on exercise, which means either 300 calories daily, or 400 calories 5 days per week, or 500 calories 4 days per week, or 650 calories 3 days per week. 10. The best choice would be to purchase a stationary bike, elliptical or treadmill at home that can track calories. Let me know if you do so I can give you an exercise plan. 11.?Goal is to lose at least 1.5-2lbs per week 12. Goal to lose 10% of your weight before surgery, which is about 32lbs. Ultimate weight goal: 287lbs before surgery 13. Please follow the diet plan exactly without any change. If you don't like something about the plan or you feel hungry you need to communicate with me so I can help you revise the plan. You should not change the plan yourself. Orders: Orders H Pylori Breath Test Today E66.01 - Morbid (severe) obesity due to excess calories, E78.00 - Pure hypercholesterolemia, unspecified, G47.33 - Obstructive sleep apnea (adult) (pediatric), R73.03 - Prediabetes Complete Blood Count Auto Diff Today E66.01 - Morbid (severe) obesity due to excess calories, E78.00 - Pure hypercholesterolemia, unspecified, G47.33 - Obstructive sleep apnea (adult) (pediatric), R73.03 - Prediabetes Comprehensive Met. Panel Today E66.01 - Morbid (severe) obesity due to excess calories, E78.00 - Pure hypercholesterolemia, unspecified, G47.33 - Obstructive sleep apnea (adult) (pediatric), R73.03 - Prediabetes Vitamin B12 and Folate Today E66.01 - Morbid (severe) obesity due to excess calories, E78.00 - Pure hypercholesterolemia, unspecified, G47.33 - Obstructive sleep apnea (adult) (pediatric), R73.03 - Prediabetes Zinc Today E66.01 - Morbid (severe) obesity due to excess calories, E78.00 - Pure hypercholesterolemia, unspecified, G47.33 - Obstructive sleep apnea (adult) (pediatric), R73.03 - Prediabetes TSH reflex Free T4 Today E66.01 - Morbid (severe) obesity due to excess calories, E78.00 - Pure hypercholesterolemia, unspecified, G47.33 - Obstructive sleep apnea (adult) (pediatric), R73.03 - Prediabetes Ferritin Today E66.01 - Morbid (severe) obesity due to excess calories, E78.00 - Pure hypercholesterolemia, unspecified, G47.33 - Obstructive sleep apnea (adult) (pediatric), R73.03 - Prediabetes Insulin Today E66.01 - Morbid (severe) obesity due to excess calories, E78.00 - Pure hypercholesterolemia, unspecified, G47.33 - Obstructive sleep apnea (adult) (pediatric), R73.03 - Prediabetes Hemoglobin A1c Today E66.01 - Morbid (severe) obesity due to excess calories, E78.00 - Pure hypercholesterolemia, unspecified, G47.33 - Obstructive sleep apnea (adult) (pediatric), R73.03 - Prediabetes Lipid Panel Today E66.01 - Morbid (severe) obesity due to excess calories, E78.00 - Pure hypercholesterolemia, unspecified, G47.33 - Obstructive sleep apnea (adult) (pediatric), R73.03 - Prediabetes IRON PROFILE Today E66.01 - Morbid (severe) obesity due to excess calories, E78.00 - Pure hypercholesterolemia, unspecified, G47.33 - Obstructive sleep apnea (adult) (pediatric), R73.03 - Prediabetes C Reactive Protein Today E66.01 - Morbid (severe) obesity due to excess calories, E78.00 - Pure hypercholesterolemia, unspecified, G47.33 - Obstructive sleep apnea (adult) (pediatric), R73.03 - Prediabetes Vitamin B1 Today E66.01 - Morbid (severe) obesity due to excess calories, E78.00 - Pure hypercholesterolemia, unspecified, G47.33 - Obstructive sleep apnea (adult) (pediatric), R73.03 - Prediabetes Vitamin A Today E66.01 - Morbid (severe) obesity due to excess calories, E78.00 - Pure hypercholesterolemia, unspecified, G47.33 - Obstructive sleep apnea (adult) (pediatric), R73.03 - Prediabetes Vitamin D 25-OH Total Today E66.01 - Morbid (severe) obesity due to excess calories, E78.00 - Pure hypercholesterolemia, unspecified, G47.33 - Obstructive sleep apnea (adult) (pediatric), R73.03 - Prediabetes US abdomen comp w elastography Today E66.01 - Morbid (severe) obesity due to excess calories, E78.00 - Pure hypercholesterolemia, unspecified, G47.33 - Obstructive sleep apnea (adult) (pediatric), R73.03 - Prediabetes XR chest 2V Today E66.01 - Morbid (severe) obesity due to excess calories, E78.00 - Pure hypercholesterolemia, unspecified, G47.33 - Obstructive sleep apnea (adult) (pediatric), R73.03 - Prediabetes ECG 12 lead EKG Today E66.01 - Morbid (severe) obesity due to excess calories, E78.00 - Pure hypercholesterolemia, unspecified, G47.33 - Obstructive sleep apnea (adult) (pediatric), R73.03 - Prediabetes FL upper GI w air Today E66.01 - Morbid (severe) obesity due to excess calories, E78.00 - Pure hypercholesterolemia, unspecified, G47.33 - Obstructive sleep apnea (adult) (pediatric), R73.03 - Prediabetes Referrals Nutrition/Dietitian Referral E66.01 - Morbid (severe) obesity due to excess calories, E78.00 - Pure hypercholesterolemia, unspecified, G47.33 - Obstructive sleep apnea (adult) (pediatric), R73.03 - Prediabetes Behavioral Health Referral E66.01 - Morbid (severe) obesity due to excess calories, E78.00 - Pure hypercholesterolemia, unspecified, G47.33 - Obstructive sleep apnea (adult) (pediatric), R73.03 - Prediabetes
[2023-06-11 10:26] VITALS: BMI 47.1
== END 2023-06-11 10:49 | disposition home or self-care (01) ==
LOC: HO.HBS 07:49
PROVIDERS: PCP Nurse Practitioner; Visit Provider Surgery
DX: E66.01 Morbid (severe) obesity due to excess calories (principal); Z68.42 Body mass index [BMI] 45.0-49.9, adult
CPT/HCPCS: 99204

== ENCOUNTER → 2023-06-11 07:49 | Outpatient (BNVA) | payer MEDICAID, SELFPAY | PROVIDERS: PCP Nurse Practitioner; Visit Provider Surgery ==

== ENCOUNTER → 2023-06-15 08:53 | Outpatient (REF) | payer MEDICAID, SELFPAY ==
--- NOTE | 2023-06-15 08:59 | CA_ITS ---
Transthoracic Echocardiogram Patient (Last, First, Middle): Merlin Matute M Gender: Male Date of : 1980 Age: 43 Procedure Date: 06/15/2023 Procedure Type: Transthoracic Echocardiogram Location: OP Height: 175.26 cm Weight: 151.96 kg BSA: 2.57 m2 Heart Rate: bpm BP: 130 / 84 mmHg Claims Attorney: GREGORIO Referring MD: Enoc Gilbert MD Symptoms: R07.89 - Other chest pain Study Quality: Fair ECG Rhythm: Sinus Conclusions: - The left ventricular systolic function is normal. The calculated ejection fraction is 62% by biplane method. - No obvious valvular pathology seen on this study. Findings Left Ventricle Normal left ventricular cavity size. The left ventricular systolic function is normal. The calculated ejection fraction is 62% by biplane method. There is no evidence of regional wall motion abnormalities. Diastolic function is normal for age. There is mild septal asymmetric hypertrophy. LV peak GLS 18.4%. Right Ventricle Normal right ventricular cavity size and systolic function. Atria Both atria are normal in size. Aortic Valve There is a normal trileaflet aortic valve. There is no aortic valve stenosis. There is no aortic valve regurgitation. Mitral Valve The mitral valve appears normal. There is no mitral valve regurgitation. There is no mitral valve stenosis. Pulmonic Valve The pulmonic valve is likely normal. Tricuspid Valve There is trace tricuspid valve regurgitation. There is no evidence of pulmonary hypertension. Great Vessels The asc aorta is normal in size. Venous The inferior vena cava is normal in size and collapses greater than 50% with inspiration. Pericardium/Pleural There is no evidence of pericardial effusion. Prior Study Comparison No prior study available for comparison. Recommendations, Care & Conclusions No obvious valvular pathology seen on this study. Measurements 2D Linear Measurements IVSd: 1.13 0.6-0.9/0.6-1.0 cm LVIDd: 5.21 3.9-5.3/4.2-5.9 cm LVIDd Index: 2.03 2.4-3.2/2.2-3.1 cm/m2 LVIDs: 2.92 2.0-3.6 cm LVPWd: 0.98 0.7-1.1 cm LA Diam: 4.10 2.7-3.8/3.0-4.0 cm LAIDs Index: 1.60 1.5-2.3 cm/m2 LV Mass: 261.00 67-162/88-224 g LV Mass Index: 101.56 43-95/49-115 g/m2 LVOT Diam: 2.30 3.0+(-)1.3 cm 2D Systolic Function EF 4C: 61.60 >55% EF 2C: 65.50 >55% EF BiP: 62.10 >55% Mitral Valve MV Pk E: 0.67 MV PK A: 0.61 MV Decel Time: 218.00 E/A: 1.10 E'Lateral: 11.00 E'Medial: 9.57 E/E' Med: 7.00 E/E' Lat: 6.10 PHT: 64.00 MVA PHT: 3.44 Decel Bacon: 3.07 Aortic Valve AoV Pk Salvador: 1.48 AoV Mn Salvador: 1.05 AoV VTI: 0.26 AoV Pk Grad: 9.00 Aov Mn Grad: 5.00 SHANIQUE Cont.VTI: 3.30 LVOT LVOT Pk [place]: 1.09 LVOT Mn [place]: 0.74 LVOT VTI: 0.21 LVOT Pk Grad: 5.00 LVOT Mn Grad: 3.00 LVOT Diam: 2.30 LVOT Area: 4.15 Diastolic Function MV Pk E: 0.67 MV Pk A: 0.61 E/A: 1.10 E'Medial: 9.57 E/E' Med: 7.00 E' Laterial: 11.00 E/E' Lat: 6.10 Right Ventricle TAPSE (mm): 23.40 TVS' Salvador: 15.00 Tricuspid Valve TR Pk Salvador: 2.14 TR Pk Grad: 18.00 RA Press: 3.00 RVSP: 21.00 Great Vessels Aorta Sinus of Valsalva: 3.74 2.0-3.[address] [place]: 3.09 1.7-3.4 cm Ao Asc: 3.20 2.1-3.4 cm Updated in Other Vendor System with Status of Final Gregorio Delgado MD electronically signed on 06/16/2023 8:09:13 AM with status of Final
--- NOTE | 2023-06-15 08:59 | CA_ITS ---
Acquisition Time: 2023-06-15 09:55:09 Total Exercise Time: 00:06:38 Test Indications: CP Medications: SEE H Protocol: CARLEY Max HR: 155 BPM 88% of Pred: 176 BPM Max BP: 164/074 mmHG Max Work Load: 7.9 METS Exercise stress test exercise 6 min 38 sec of Carley protocol achieving 88% MPHR, 5/10 constant left chest pinching at baseline with slight increase with deep inspiration , with mild SOB, with normotensive response to exercise, without EKG changes. Test reviewed with Dr. Navarro. Referred By: Enoc Gilbert Overread By: Asuncion Manning
== END ==
LOC: HO.CARD 08:53
PROVIDERS: Visit Provider Internal Medicine Cardiovascular Disease
DX: R07.89 Other chest pain (principal)
CPT/HCPCS: 93017; 93306; 93356

== ENCOUNTER → 2023-06-15 08:59 | Outpatient (BNV) | payer MEDICAID, SELFPAY | PROVIDERS: Visit Provider Nurse Practitioner | DX: R07.89 Other chest pain (principal); I42.2 Other hypertrophic cardiomyopathy | CPT/HCPCS: 93016; 93018; 93350; 93356 ==

== ENCOUNTER 2023-06-21 09:51 | Outpatient (AMB) | payer MEDICAID, SELFPAY ==
--- NOTE | 2023-06-21 10:07 | MHC.OFFVIS ---
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 Name: jennifer Allergies No Known Allergies Allergy (Verified 06/21/23 10:14) Medication List - Last Reconciled 06/21/23 by Vidhi Padilla NP-C cetirizine (All Day Allergy (cetirizine)) 10 mg PO DAILY PRN cholecalciferol (vitamin D3) 50 mcg PO DAILY ibuprofen 800 mg PO Q8H PRN lisinopril 20 mg PO DAILY pantoprazole (Protonix) 40 mg PO BID 30 days tramadol 100 mg PO Q6-8H PRN HPI HPI 6 wk s/p echo/ ett/ NS: Details: Merlin is a 43-year-old male with past medical history of obesity, hypertension, hyperlipidemia, prediabetes who reported chest discomfort and underwent a stress test and echocardiogram and now presents for follow-up. Today he reports that he continues to have a discomfort in his mid chest. He describes this as continual pressure which is worse at some times compared to others. He has not clear on what the aggravating factors are. He notices that when he is stressed or agitated he will get pinching pains in the left chest region. He walks routinely and does not get symptoms that are worsened or brought on by walking. No concerning shortness of breath, lightheadedness, presyncope, syncope, PND, orthopnea or edema. He reports compliance with his CPAP. [facility] Medical History DJD (degenerative joint disease) Pre-op examination History of Helicobacter pylori infection Nasal septum fracture HTN (hypertension) Surgical History History of esophagogastroduodenoscopy (EGD) S/P nasal surgery Family History Mother Stroke Social History Alcohol intake: never Patient Tobacco Use Status: Current everyday Tobacco user Tobacco use type: Cigarette Cigarettes Per Day: 5 Years Smoked: 4 Review of Systems Const All systems reviewed & are unremarkable except as noted in HPI and below ENT Denies dizziness Card Reports chest pain, Reports chest pain at rest, Denies chest pain with activity, Denies rapid heart rate, Denies pedal edema, Denies edema, Denies leg edema, Denies lightheadedness, Denies palpitations, Denies dyspnea, Denies dyspnea on exertion and Denies orthopnea Resp Denies cough, Denies dyspnea and Denies dyspnea on exertion GI Denies hematochezia and Denies change in stool character Musc Denies abnormal gait, Denies limited range of motion, Denies muscle cramps, Denies muscle weakness, Denies numbness, Denies radiating pain into limb, Denies stiffness and Denies tingling Neuro Denies abnormal gait, Denies dizziness, Denies numbness and Denies tingling Endo Denies palpitations Physical Exam Vital Signs: Last Vital Signs Pulse 86 06/21/23 10:10 BP 150/80 H 06/21/23 10:10 BMI result Body Mass Index 47.5 Const General: cooperative, healthy appearing, comfortable and no acute distress Orientation/consciousness: patient oriented x3 Neck Neck: Yes normal visual inspection and Yes no JVD Resp Effort & Inspection: normal respiratory effort Auscultation: clear to auscultation bilaterally, no crackles, no rales, no rhonchi and no wheezes Cardio Jugular venous distension: no JVD Rate: regular rate Rhythm: regular rhythm Heart sounds: S1 normal heart sound present, S2 normal heart sound present, no murmurs and no rubs Neuro General: patient oriented x3 Extrem General: Yes normal to inspection, No no pedal edema and No calf tenderness Psych Appearance: grossly normal Mental Status: mental status grossly normal Speech and movement: Normal speech and movement present Assessment & Plan Assessment & Plan (1) Atypical chest pain: Code(s): R07.89 - Other chest pain Category: Medical Plan: Atypical sounding chest discomfort. One is a constant pressure in his mid to right chest that is worse at times without known aggravating or alleviating factors. The other is a pinching pain in the left chest that occurs when he is stressed or agitated. No discomfort that is clearly worsened or brought on by physical activity. He did undergo a exercise stress test on 06/15/2023 with exercise 6 minutes 38 seconds with chest discomfort throughout test, no EKG changes of ischemia. An echocardiogram was done on 06/15/2023 showing EF 62%, no regional wall motion abnormalities, mild septal asymmetric hypertrophy. Today he reports that his symptoms have persisted. They are causing him some concern. He does have multiple cardiac risk factors including obesity, hypertension, hyperlipidemia, prediabetes and obesity. With his cardiac risk factors and atypical pain will look further with a stress echocardiogram. Plan to call him with results. If test is normal then cardiology follow-up will be as needed. He could then further discuss his symptom with his PCP. If test is abnormal then follow-up plan to be determined. Continue with risk factor modification. Cardiology follow-up p.r.n. (2) Morbid obesity: Code(s): E66.01 - Morbid (severe) obesity due to excess calories Category: Medical Plan: Benefit of weight loss and routine physical activity reviewed (3) TRAV (obstructive sleep apnea): Code(s): G47.33 - Obstructive sleep apnea (adult) (pediatric) Category: Medical Plan: History of obstructive sleep apnea. He tells me he is compliant with his CPAP mask. (4) High cholesterol: Code(s): E78.00 - Pure hypercholesterolemia, unspecified Category: Medical Plan: [place] LDL goal less than 100. Will be less than 70 patient diagnosed with diabetes. Can be followed by his PCP (5) Precordial chest pain: Code(s): R07.2 - Precordial pain Category: Medical Plan: As above Plan Time spent on chart review mentation, interview and assessment Orders: Orders CA echo stress exercise Today R07.2 - Precordial pain Coding Level of Care Code Est Pt Level 3 (41556) Diagnoses Atypical chest pain R07.89 Morbid obesity E66.01 TRAV (obstructive sleep apnea) G47.33 High cholesterol E78.00 Precordial chest pain R07.2 Time Spent (min) 24
[2023-06-21 10:10] VITALS: BP 150/80; PULSE 86; BMI 47.5
== END 2023-06-21 10:39 | disposition home or self-care (01) ==
PROVIDERS: Visit Provider Nurse Practitioner Family
DX: R07.89 Other chest pain (principal); E66.01 Morbid (severe) obesity due to excess calories; G47.33 Obstructive sleep apnea (adult) (pediatric); E78.00 Pure hypercholesterolemia, unspecified; R07.2 Precordial pain
CPT/HCPCS: 99213

== ENCOUNTER → 2023-06-21 09:51 | Outpatient (BNVA) | payer MEDICAID, SELFPAY | PROVIDERS: Visit Provider Nurse Practitioner Family | DX: R07.89 Other chest pain (principal); R07.2 Precordial pain; E66.01 Morbid (severe) obesity due to excess calories; E78.00 Pure hypercholesterolemia, unspecified; G47.33 Obstructive sleep apnea (adult) (pediatric); Z68.42 Body mass index [BMI] 45.0-49.9, adult | CPT/HCPCS: 99212 ==

== ENCOUNTER 2023-07-07 10:51 | Outpatient (AMB) | payer OTHER, SELFPAY ==
--- NOTE | 2023-07-07 11:02 | MHC.WMTHER ---
Intake Intake Visit Reasons: VIDEO BH Intake Allergies No Known Allergies Allergy (Verified 07/14/23 09:37) [facility] Medical History DJD (degenerative joint disease) Pre-op examination History of Helicobacter pylori infection Nasal septum fracture HTN (hypertension) Surgical History History of esophagogastroduodenoscopy (EGD) S/P nasal surgery Family History Mother Stroke Social History Alcohol intake: never Patient Tobacco Use Status: Current everyday Tobacco user Tobacco use type: Cigarette Cigarettes Per Day: 5 Years Smoked: 4 Behavioral Health Assessment Weight Management Therapy Therapy Notes Details PT is a 43 Y/o male who presents for intake as part of surgical weight loss program. Presenting Concerns Referral Source PT initially referred by his PCP at [facility] due to current medical issues being worsened by Obesity. P Provider, PT sees Dr. Lackey Reason for referral Completion of behavioral health assessment as part of process for weight-loss surgery. Precipitating Event Medical issues. Living Situation Current Living Situation Rent At risk of losing current housing? No Satisfied with current living situation? Yes Comments Pt lives alone. Food/Weight/Diet Expectations of change Initial goal is to lose 10% of his weight before surgery, which is about 32lbs. Ultimate weight goal: 287lbs before surgery. After that patient wants to have bariatric surgery and continues losing to be at a healthy weight where he feels good and becomes more active in general. 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 History/Relationship with food PT reports she was not aware of the unhealthy habits he has and how the style of his meals has been negatively impacting his health leading to obesity. 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 In general, he was doing 2 big meals at day. At night he was hungry, often waking up hungry to snack on something quickly and go back to sleep. Pt denies any concerns re: emotional eating or using food to praise himself for good things or to lift his mood after a bad day. History/Relationship with weight In the last 10 years his lowest weight has been 298Lbs and highest almost 350Lbs. History/Relationship with dieting OTC meds, meds prescribed by a dr, exercise with diets. Binge Eating Do you frequently eat large amounts of food in short periods of time, not feeling physically hungry? No Do you feel out of control when you eat a large amount of food in a short period of time? No Do you eat large amounts of food rapidly and typically alone? Yes Night Eating Do you wake up at least once during the night to eat? No If you wake up in the night, do you find that it is necessary to eat something in order to fall back asleep? Yes Do you have little or no appetite in the morning and feel very hungry in the evening, often overeating between dinner and when you go to bed? No Social History Family history and relationship Single, he has an 18 y/o son. He has 2 sisters and 1 brother. Mother alive, lives in [place]. Father . 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 Developmental history and status None reported. currently WNL. Social support Mother and siblings. PT reports he doesn't have friends. Community support PCP. Adventist/Spirituality None reported Cultural/Ethnic information Born in [place] moved to [place] at age 7. Legal Involvement and History Current or historical involvement with the legal system? None reported. Education Highest grade completed 8th grade. Preferred learning style Auditory and Visual Currently enrolled in educational program? No Interested in further educational program? No Educational Interests/Skills Health Tech. 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 ) Wants help to find employment? No Meaningful activities Watch [employer] Financial Situation Describe current financial situation Comfortable Financial assistance? None Service Service? No Mental Health and Addiction Treatment Current/Past substance abuse? No Comments quit smoking 2 months ago, was smocking 5-6 cigarettes at day. Social drinking, 1-2 drinks couple times at year, less than monthly. Current/Past addictive behavior concerns? No Psychiatric history PT state he went to counseling since 2005 to 2018. He started receiving services as he was disoriented Medical and Physical Health Summary Additional Medical History not covered in history None Sexual History concerns None Physical exam in the last year? Yes Pain Screening Current pain? Yes Pain in the last few months? Yes Comments Due to back issues. Medications Is the patient compliant with medications? Yes Does the patient have Nevarez Guardian in place? Not applicable Trauma/Abuse History History of trauma? No Questionnaires PHQ-9 Over the last 2 weeks, how often have you been bothered by any of the following problems? 1. Little interest or pleasure in doing things: more than half the days 2. Feeling down, depressed, or hopeless: not at all 3. Trouble falling or staying asleep, or sleeping too much: not at all 4. Feeling tired or having little energy: several days 5. Poor appetite or overeating: several days 6. Feeling bad about yourself - or that you are a failure or have let yourself or your family down: not at all 7. Trouble concentrating on things, such as reading the newspaper or watching television: not at all 8. Moving or speaking so slowly that other people could have noticed. Or the opposite - being so fidgety or restless that you have been moving around a lot more than usual: not at all 9. Thoughts that you would be better off or of hurting yourself in some way: not at all Total score: 4 Depression Screening Interpretation: Negative Depression Screening Done: Yes 31425 - PHQ-9 Billing: Yes Source: Developed by Drs. Marcello Apple, Nikki Luna, Karsten Castillo and colleagues, with an educational sam from [employer]. Binge Eating Scale Group 1 A. I don't feel self-conscious about my wt. or body size when I'm with others. B. I feel concerned about how I look to others, but it normally does not make me fell disappointed with myself C. I do get self-conscious about my appearance and wt. which makes me feel disappointed in myself. D. I feel very self-conscious about my wt. and frequently I feel intense shame and disgust for myself. I try to avoid social contacts because of my self-consciousness. Response Group 1: C Group 2 A. I don't have any difficulty eating slowly in the proper manner. B. Although I seem to gobble down foods, I don't end up feeling stuffed because of eating to much. C. At times, I tend to eat quickly and then, I feel uncomfortably full afterwards. D. I have the habit of bolting down my food, without really chewing it. When this happens I usually feel uncomfortably stuffed because I've eaten to much. Response Group 2: B Group 3 A. I feel capable to control my eating urges when I want to. B. I feel like I have failed to control my eating more than the average person. C. I feel utterly helpless when it comes to feeling in control of my eating urges. D. Because I feel so helpless about controlling my eating I have become very desperate about trying to get control. Response Group 3: C Group 4 A. I don't have the habit of eating when I'm bored. B. I sometimes eat when I'm bored, but often I'm able to get busy and get my mind off food. C. I have a regular habit of eating when I'm bored, but occasionally, I can use some other activity to get my mind off eating. D. I have a strong habit of eating when I'm bored. Nothing seems to help me breath the habit. Response Group 4: D Group 5 A. I'm usually physically hungry when I eat something. B. Occasionally, I eat something on impulse even though I really am not hungry. C. I have the regular habit of eating foods, that I might not really enjoy, to satisfy a hungry feeling even though physically, I don't need the food. D. Although I'm not physically hungry, I get a hungry feeling in my mouth that only seems to be satisfied when I eat a food, like sandwich, that fills my mouth. Sometimes, when I eat the food to satisfy my mouth hunger, I then spit the food out so I won't gain weight. Response Group 5: B Group 6 A. I don't feel any guilt or self-hate after I overeat. B. After I overeat, occasionally I feel guilt or self-hate. C. Almost all the time I experience strong guilt or self-hate after I overeat. Response Group 6: B Group 7 A. I don't lose total control of my eating when dieting even after periods when I overeat. B. Sometimes when I eat a forbidden food on a diet, I feel like I blew it and eat even more. C. Frequently, I have the habit of saying to myself, I've blown it now, why not go all the way, when I overeat on a diet. When that happens I eat more. D. I have a regular habit of starting a strict diets for myself but I break the diets by going on an eating binge. My life seems to be either a feast or famine. Response Group 7: A Group 8 A. I rarely eat so much food that I feel uncomfortably stuffed afterwards. B. Usually about once a month, I each such a quantity of food, I end up feeling very stuffed. C. I have regular periods during the month when I eat large amounts of food, either at mealtime or at snacks. D. I eat so much food that I regularly feel quite uncomfortable after eating and sometimes a bit nauseous. Response Group 8: D Group 9 A. My level of calorie intake does not go up very high or go down very low on a regular basis. B. Sometimes after I overeat, I will try to reduce my caloric intake to almost nothing to compensate for the excess calories I've eaten. C. I have a regular habit of overeating during the night. It seems that my routine is not to be hungry in the morning but overeat in the evening. D. In my adult years, I have had week-long periods where I practically starve myself. This follows periods when I overeat. It seems I live a life of either feast or famine. Response Group 9: B Group 10 A. I usually am able to stop eating when I want to. I know when enough is enough. B. Every so often, I experience a compulsion to eat which I can't seem to control. C. Frequently, I experience strong urges to eat which I seem unable to control, but at other times I can control my eating urges. D. I feel incapable of controlling urges to eat. I have a fear of not being able to stop eating voluntarily. Response Group 10: D Group 11 A. I don't have any problem stopping eating when I feel full. B. I usually can stop eating when I feel full but occasionally overeat leaving me feeling uncomfortably stuffed. C. I have a problem stopping eating once I start and usually I feel uncomfortably stuffed after I eat a meal. D. Because I have a problem not being able to stop eating when I want, I sometimes have to induce vomiting to relieve my stuffed feeling. Response Group 11: C Group 12 A. I seem to eat just as much when I'm with others, Family social gatherings as when I'm by myself. B. Sometimes, when I'm with other persons, I don't eat as much as I want to eat because I'm self-conscious about my eating. C. Frequently, I eat only a small amount of food when others are present, because I'm very embarrassed about my eating. D. I feel so ashamed about overeating that I pick times to overeat when I know no one will see me. I feel like a closet eater. Response Group 12: A Group 14 A. I don't think much about trying to control unwanted eating urges. B. At least some of the time, I feel my thoughts are pre-occupied with trying to control my eating urges. C. I feel that frequently I spend much time thinking about how much I ate or about trying not to eat anymore. D. It seems to me that most of my waking hours are pre-occupied by thoughts about eating or not eating. I feel like I'm constantly struggling not to eat. Response Group 14: B Group 15 A. I don't think about food a great deal. B. I have strong craving for food but they last only for brief periods of time. C. I have days when I can't seem to think about anything else but food. D. Most of my days seem to be pre-occupied with thoughts about food. I feel like I live to eat. Response Group 15: D Group 16 A. I usually know whether or not I'm physically hungry. I take the right portion of food to satisfy me. B. Occasionally, I feel uncertain about knowing whether or not I'm physically hungry. A these times it's hard to know how much food I should take to satisfy me. C. Even though I might know how many calories I should eat, I don't have any idea what is a normal amount of food for me. Response Group 16: B Binge Eating Score: 24 (PT stated that for question 13- none apply, as he used to skip 2 meals and have some snacks and 1 big dinner. ) Score less than 17 Minimal Risk Score between 18-26 Moderate Risk Score between 27-46 High Risk Assessment & Plan Assessment & Plan (1) Eating disorder, unspecified: Code(s): F50.9 - Eating disorder, unspecified Plan: The patient has been cleared from BH standpoint. His scores from BES suggest low-moderate risk for Binge eating, and per his reports she has no concerns around emotional eating. PHQ-9 scores were lower indicating no Sx of depression and Mental status exam showed functioning in intact. Pt also denies any risk concerns around substance use, self-harm and/or other-harm. PT will be seen again in about 2 months for support. Next lexie: 09/01/23 at 12pm, via telehealth. Telehealth Telehealth Telehealth Platform: [employer] Location of provider rendering services: other ([facility], [place], [place]) Location of patient: other ([place], [place] ) Patient Identification confirmed using: Name, : Yes Telehealth method: video Patient verbally consented to treatment: Yes Patient verbally consented to billing insurance company: Yes Patient informed of any privacy concerns related to visit: No Minutes spent on Phone/Video with Pt.: 60 Coding Level of Care Code New Pt Tele Psytx >53 mins (08445) Patient Type New Diagnoses Eating disorder, unspecified F50.9 Time Spent (min) 60 Comment
== END 2023-07-07 12:00 | disposition home or self-care (01) ==
PROVIDERS: Visit Provider Counselor Mental Health
DX: F50.9 Eating disorder, unspecified (principal)
CPT/HCPCS: 90837

== ENCOUNTER → 2023-07-07 10:51 | Outpatient (BNVA) | payer MEDICAID, SELFPAY | PROVIDERS: Visit Provider Counselor Mental Health ==

== ENCOUNTER 2023-07-12 09:00 | Outpatient (REF) | payer OTHER, SELFPAY ==
[2023-07-12 12:02] LABS: Alanine Aminotransferase 43 U/L (0-40); Albumin Level 4.1 g/dL (3.5-5.0); Alkaline Phosphatase 56 U/L (39-117); Anion Gap 12 (12-20); Aspartate Amino Transferase 24 U/L (5-37); Bilirubin Total 0.5 mg/dL (0.0-1.0); Blood Urea Nitrogen 18 mg/dL (9-16); Calcium 9.4 mg/dL (8.4-10.2); Carbon Dioxide 28 mmol/L (22-29); Chloride 104 mmol/L (96-108); Cholesterol 176 mg/dL (<200); Estimated Glomerular Filt Rate > 60; Glucose Random 108 mg/dL (60-115); HDL Cholesterol 41 mg/dL (>40); LDL Cholesterol Calculated 113 mg/dL (<100); Potassium 4.7 mmol/L (3.3-5.1); Sodium 139 mmol/L (135-145); Total Protein 7.2 g/dL (6.5-8.0); Triglycerides 114 mg/dL (<150)
[2023-07-12 12:23] LABS: Estimated Average Glucose 117 mg/dL; Hemoglobin A1c % 5.7 % (<6.0)
[2023-07-13 05:31] LABS: HBS Num1 12.38 mIU/mL (0-7.99); HBc Num1 0.12 S/CO (0.00-0.79); HBsAGNum1 0.27 S/CO (0.00-0.99); Hepatitis B Core Antibody Nonreactive (Nonreactive); Hepatitis B Surface Antigen Negative (Negative); ~Hepatitis B Surface Antibody REACTIVE (Nonreactive)
== END 2023-07-12 09:01 | disposition home or self-care (01) ==
LOC: HO.HHCL 09:00
PROVIDERS: Visit Provider Nurse Practitioner
DX: Z11.3 Encounter for screening for infections with a predominantly sexual mode of transmission (principal); E66.01 Morbid (severe) obesity due to excess calories; Z68.42 Body mass index [BMI] 45.0-49.9, adult
CPT/HCPCS: 36415; 80053; 80061; 83036; 86704; 86706; 87340

== ENCOUNTER 2023-07-14 09:26 | Outpatient (AMB) | payer MEDICAID, SELFPAY ==
--- NOTE | 2023-07-14 09:29 | MHC.OFFVIS ---
Vital Signs 07/14/23 09:30 Height 5 ft 9 in Weight 330 lb 11.094 oz BMI 48.8 BP 127/59 L Blood Pressure Location Lt brachial Position Sitting Pulse 74 Intake Visit Reasons: 3 month follow up epigastric pain Intake Note: Merlin presents to in office visit today in follow up of epigastric pain. CC: Patient states that he still getting epigastric pain and that his has told him that his breath smells sometimes like acid . 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 He says that his throat has been more scratchy recently. This went away for quite a while and he is uncertain if this has something to do with brushing his tongue in the morning which causes him to gag. He continues on his pantoprazole but he takes 80 mg in the morning and this seems to control his GERD well. He also has famotidine if he has breakthrough. He sniffling quite a lot today and coughing and I am wondering if his throat scratching has more to do with allergies and sinusitis then GERD. I suggest this to him and also advised him to use his inhaled steroid nasal spray every day because this does not work well if you use it p.r.n.. He is declined to do the gastric emptying study due that time, however his nausea is improving so I do not think this is necessary. We review the HIDA scan is gallbladder function is normal. He is found that a lot of his abdominal pain and nausea improved after he stopped eating spicy food which is said he was eating every day with every meal. I still think the barium swallow would be prudent, it appears that this was mistakenly entered under nuclear medicine that is probably why he has not received a phone call. Did have irritation in his throat after the last endoscopy so if we ever have to do this again we may need to consider having him gargle with lidocaine or some other measure to prevent irritation. Return office visit in 3 months and or after the barium swallow depending on the timing. He is also going to weight Management to consider bariatric surgery which likely would have a positive impact on his GERD Today's visit Venezuelan # interprets per patient request. He continues to have some discomfort that he describes as burning especially with eating certain foods. He also had bad breath that smells like gastric contents specially when he eats spicy soup with things like sardines, cheese, and span. Again, he has history of nausea and he says this happens when he overeats. While he has not currently diabetic it does say pre diabetes on his chart and he possibly has some delay in gastric emptying. Declined to do a gastric emptying study in the past. He also says he is does much better when he has been on Prilosec. I think will try to get him back on this twice a day since he has no sign of kidney dysfunction or other adverse effects. We will see how much this resolves the problem and if it does not will think of layering on some Reglan to improve gastric emptying. He has a 2cm sliding HH on EGD. Explain why repair is not a first line option. He is seeing [facility] for possible bariatric surgery. First he must lose 30% of his weight and he is struggling. No CIC. ROV 4 weeks. [facility] Medical History DJD (degenerative joint disease) Pre-op examination History of Helicobacter pylori infection Nasal septum fracture HTN (hypertension) Surgical History History of esophagogastroduodenoscopy (EGD) S/P nasal surgery Family History Mother Stroke Social History Alcohol intake: never Patient Tobacco Use Status: Current everyday Tobacco user Tobacco use type: Cigarette Cigarettes Per Day: 5 Years Smoked: 4 Review of Systems Const Denies fatigue, Denies fever(s), Denies night sweats, Denies poor appetite and Denies weight loss ENT Reports Normal hearing present, Denies dental pain, Denies dysphagia, Denies hearing loss, Denies mouth pain, Denies odynophagia, Denies throat swelling, Denies tongue swelling and Reports other (Dentition adequate) Card Reports no additional complaints Resp Reports no additional complaints GI Details: Reports abdominal pain, Denies melena, Denies bloating, Denies hematochezia, Denies constipation, Denies GI cramping, Denies dysphagia, Denies excessive flatus, Denies early satiety, Reports heartburn, Denies diarrhea, Reports nausea, Denies odynophagia, Denies vomiting and Denies hematemesis Skin/Breast Denies pruritus, Denies lesions, Denies rash and Denies jaundice Neuro Reports Normal hearing present and Denies Abnormal speech present Endo Denies fatigue Aller/Immun Denies throat swelling and Denies tongue swelling Physical Exam Vital Signs: Last Vital Signs Pulse 74 07/14/23 09:30 BP 127/59 L 07/14/23 09:30 BMI result Body Mass Index 48.8 Const General: cooperative, no acute distress, well developed and well groomed Nutritional Appearance: well nourished and obese morbidly obese Orientation/consciousness: oriented to person, oriented to place and oriented to time Limitations: language barrier HEENT Head: Yes normocephalic and Yes atraumatic Eyes General: appearance normal, both eyes and all related structures Pupils: Equal, round and reactive pupils present Neck Neck: Yes normal visual inspection and Yes no lymphadenopathy Thyroid: Thyroid normal Resp Effort & Inspection: normal respiratory effort and able to speak in complete sentences Auscultation: clear to auscultation bilaterally Cardio Rate: regular rate Rhythm: regular rhythm Heart sounds: Normal, physiologic split S2 sound present Peripheral pulses: radial pulses present and posterior tibial pulses present GI Inspection: No distended, Yes Abdominal panniculus present and Yes obesity Palpation (GI): Soft to palpation, nontender, no guarding, not rigid and No hepatosplenomegaly present Percussion: Yes normal to percussion Auscultation: normal bowel sounds Rectal Exam - Male: Yes deferred Skin General skin exam: no rashes or lesions noted, turgor normal, skin not dry, no jaundice, No spider nevi and no striae Rashes: no rashes Nails: normal Neuro General: oriented to person, oriented to place and oriented to time Cranial nerves: Yes Equal, round and reactive pupils present and Yes Normal hearing present Speech: No Abnormal speech present Extrem General: Yes normal to inspection, No clubbing, No cyanosis and No edema Psych Appearance: grossly normal and well kempt Mental Status: mental status grossly normal Speech and movement: Normal speech and movement present Affect: normal affect Attitude: cooperative Thought process: Normal thought process present and not confabulating Thought content: Normal thought content present Insight: Limited insight present (Psych) Judgement: Limited judgement present (Psych) Assessment & Plan Assessment & Plan (1) GERD (gastroesophageal reflux disease): Code(s): K21.9 - Gastro-esophageal reflux disease without esophagitis Category: Medical (2) Epigastric pain: Comment: This also improved after he gave up eating hot spicy food Code(s): R10.13 - Epigastric pain Category: Medical Plan Venezuelan # interprets per patient request. He continues to have some discomfort that he describes as burning especially with eating certain foods. He also had bad breath that smells like gastric contents specially when he eats spicy soup with things like sardines, cheese, and span. Again, he has history of nausea and he says this happens when he overeats. While he has not currently diabetic it does say pre diabetes on his chart and he possibly has some delay in gastric emptying. Declined to do a gastric emptying study in the past. He also says he is does much better when he has been on Prilosec. I think will try to get him back on this twice a day since he has no sign of kidney dysfunction or other adverse effects. We will see how much this resolves the problem and if it does not will think of layering on some Reglan to improve gastric emptying. He has a 2cm sliding HH on EGD. Explain why repair is not a first line option. He is seeing [facility] for possible bariatric surgery. First he must lose 30% of his weight and he is struggling. No CIC. ROV 4 weeks. Medications: New omeprazole 40 mg PO BID 60 caps 6RF 30 days Discontinued pantoprazole Discontinued Reason: Doctor's Order 40 mg PO BID 60 tabs 6RF E66.01 - Morbid (severe) obesity due to excess calories, K21.9 - Gastro-esophageal reflux disease without esophagitis Coding Level of Care Code Est Pt Level 3 (31179) Diagnoses GERD (gastroesophageal reflux disease) K21.9 Epigastric pain R10.13
[2023-07-14 09:30] VITALS: BP 127/59; PULSE 74; BMI 48.8
== END 2023-07-14 09:59 | disposition home or self-care (01) ==
PROVIDERS: Visit Provider Nurse Practitioner
DX: K21.9 Gastro-esophageal reflux disease without esophagitis (principal); R10.13 Epigastric pain
CPT/HCPCS: 99213

== ENCOUNTER → 2023-07-14 09:26 | Outpatient (BNVA) | payer MEDICAID, SELFPAY | PROVIDERS: Visit Provider Nurse Practitioner | DX: R10.13 Epigastric pain (principal); K21.9 Gastro-esophageal reflux disease without esophagitis; R11.0 Nausea | CPT/HCPCS: 99212 ==

== ENCOUNTER 2023-08-23 12:24 | Outpatient (REF) | payer MEDICAID, SELFPAY ==
--- NOTE | ~2023-08-23 | XR_ITS ---
EXAMINATION: XR CHEST CLINICAL INFORMATION: Morbid obesity due to excess calories. COMPARISON: 09/05/2022 TECHNIQUE: 2 views of the chest were obtained. FINDINGS: There is no gross pneumothorax. Heart size is normal. No pleural effusion. No focal consolidation. Degenerative changes in the thoracic spine. Mild loss of height of adjacent [id number] thoracic vertebral bodies of indeterminate age. XR/XR chest 2V IMPRESSION: 1. No evidence of pneumonia. 2. Mild loss of height of adjacent [id number] thoracic vertebral bodies of indeterminate age.
--- NOTE | 2023-08-23 12:29 | ECG_ITS ---
Test Reason : e66.01 Blood Pressure : / mmHG Vent. Rate : 076 BPM Atrial Rate : 076 BPM P-R Int : 178 ms QRS Dur : 108 ms QT Int : 400 ms P-R-T Axes : 071 -35 028 degrees QTc Int : 450 ms Normal sinus rhythm Left axis deviation Abnormal ECG When compared with ECG of 04-SEP-2022 17:59, No significant change was found Referred By: Tera Rooney Electronically Signed By:MEG CUEVAS MD
[2023-08-23 12:45] LABS: MANUAL DIFF FLAG NO
[2023-08-23 13:44] LABS: Basophils Percent Auto 0.6 % (0-2); Eosinophils Absolute Auto 0.2 X10*3/uL (0.0-0.4); Eosinophils Percent Auto 2.9 % (0-4); Hematocrit 42.5 % (42.0-52.0); Hemoglobin 14.8 g/dl (14.0-18.0); Imm Gran Abs Auto 0.01 X10*3/uL (0.00-0.03); Imm Gran Pct Auto 0.2 % (0.0-0.4); Lymphocytes Absolute Auto 2.2 X10*3/uL (1.2-4.9); Lymphocytes Percent Auto 42.9 % (20-40); Mean Corpuscular HGB Conc 34.8 g/dl (31.0-36.0); Mean Corpuscular Hemoglobin 29.7 pg (27.0-33.0); Mean Corpuscular Volume 85.2 fL (80.0-98.0); Mean Platelet Volume 9.6 fL (9.4-12.4); Monocytes Absolute Auto 0.3 X10*3/uL (0.1-1.2); Monocytes Percent Auto 6.3 % (2-11); Neutrophils Absolute Auto 2.4 x10*3/uL (2.0-8.3); Neutrophils Percent Auto 47.1 % (45-73); Platelet Count 288 X10*3/uL (160-400); Red Blood Count 4.99 X10*6/uL (4.60-5.80); White Blood Count 5.1 X10*3/uL (4.8-10.8)
[2023-08-23 13:49] LABS: Estimated Average Glucose 117 mg/dL; Hemoglobin A1c % 5.7 % (<6.0)
[2023-08-23 14:23] LABS: Alanine Aminotransferase 31 U/L (0-40); Albumin Level 4.3 g/dL (3.5-5.0); Alkaline Phosphatase 59 U/L (39-117); Anion Gap 12 (12-20); Aspartate Amino Transferase 20 U/L (5-37); Bilirubin Total 0.6 mg/dL (0.0-1.0); Blood Urea Nitrogen 19 mg/dL (9-16); Calcium 9.5 mg/dL (8.4-10.2); Carbon Dioxide 27 mmol/L (22-29); Chloride 106 mmol/L (96-108); Cholesterol 205 mg/dL (<200); Estimated Glomerular Filt Rate > 60; Glucose Random 99 mg/dL (60-115); HDL Cholesterol 35 mg/dL (>40); Iron 115 mcg/dL (45-160); LDL Cholesterol Calculated 153 mg/dL (<100); Percent Iron Saturation 41 % (15-50); Potassium 4.4 mmol/L (3.3-5.1); Sodium 141 mmol/L (135-145); Total Iron Binding Capacity 281 mcg/dL (228-428); Total Protein 7.3 g/dL (6.5-8.0); Triglycerides 89 mg/dL (<150); Unsaturated Iron Binding 166 ug/dL
[2023-08-23 14:43] LABS: Ferritin 203 ng/mL (20-250); Insulin 33 uU/mL (2-29); TSH reflex Free T4 0.67 uIU/mL (0.32-4.0); Vitamin D 25-OH Total 45.6 ng/mL (>30)
[2023-08-23 14:51] LABS: Folate 8.6 ng/mL (> or = 4.0); Vitamin B12 715 pg/mL (200-900)
[2023-08-26 06:08] LABS: Zinc 82 mcg/dL (60-130)
[2023-08-26 21:28] LABS: Vitamin A 47 mcg/dL (38-98)
[2023-08-27 18:48] LABS: Vitamin B1 10 nmol/L (8-30)
== END 2023-08-23 12:25 | disposition home or self-care (01) ==
LOC: HO.XRAY 12:24
PROVIDERS: PCP Nurse Practitioner; Visit Provider Surgery
DX: E66.01 Morbid (severe) obesity due to excess calories (principal); G47.33 Obstructive sleep apnea (adult) (pediatric); E78.00 Pure hypercholesterolemia, unspecified; R73.03 Prediabetes
CPT/HCPCS: 36415; 71046; 80053; 80061; 82306; 82607; 82728; 82746; 83036; 83525; 83540; 84425; 84443; 84590; 84630; 85025; 86140; 93005

== ENCOUNTER → 2023-08-23 12:29 | Outpatient (BNV) | payer MEDICAID, SELFPAY | PROVIDERS: PCP Nurse Practitioner; Visit Provider Internal Medicine Cardiovascular Disease | DX: R94.31 Abnormal electrocardiogram [ECG] [EKG] (principal) | CPT/HCPCS: 93010 ==

== ENCOUNTER 2023-09-01 11:59 | Outpatient (AMB) | payer OTHER, SELFPAY ==
--- NOTE | 2023-09-01 12:52 | MHC.WMTHER ---
Intake Intake Visit Reasons: VIDEO BH F/U Allergies No Known Allergies Allergy (Verified 07/14/23 09:37) [facility] Medical History DJD (degenerative joint disease) Pre-op examination History of Helicobacter pylori infection Nasal septum fracture HTN (hypertension) Surgical History History of esophagogastroduodenoscopy (EGD) S/P nasal surgery Family History Mother Stroke Social History Alcohol intake: never Patient Tobacco Use Status: Current everyday Tobacco user Tobacco use type: Cigarette Cigarettes Per Day: 5 Years Smoked: 4 Behavioral Health Assessment Weight Management Therapy Therapy Notes Details PT presents for a follow up via Telehealth. PT missed appointment with PA on july and has not been seen by and other provider since July 06. Interventions: Today we focused in managing barriers impacting his behavior which is not helping his weight-loss surgery. CBT. gentle confrontation and behavioral modification techniques used as client showed biased and rigid thinking. Response and plan: Client was talkative and honest about his challenges. He will be seen again for support in about a month, And has been advised to reschedule appointments he missed with providers and/or think if he is ready to commit to the program to continue with surgery. Presenting Concerns Referral Source PT initially referred by his PCP at [facility] due to current medical issues being worsened by Obesity. P Provider, PT sees Dr. Lackey Reason for referral Completion of behavioral health assessment as part of process for weight-loss surgery. Precipitating Event Medical issues. Living Situation Current Living Situation Rent At risk of losing current housing? No Satisfied with current living situation? Yes Comments Pt lives alone. Food/Weight/Diet Expectations of change Initial goal is to lose 10% of his weight before surgery, which is about 32lbs. Ultimate weight goal: 287lbs before surgery. After that patient wants to have bariatric surgery and continues losing to be at a healthy weight where he feels good and becomes more active in general. 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 History/Relationship with food PT reports she was not aware of the unhealthy habits he has and how the style of his meals has been negatively impacting his health leading to obesity. 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 In general, he was doing 2 big meals at day. At night he was hungry, often waking up hungry to snack on something quickly and go back to sleep. Pt denies any concerns re: emotional eating or using food to praise himself for good things or to lift his mood after a bad day. History/Relationship with weight In the last 10 years his lowest weight has been 298Lbs and highest almost 350Lbs. History/Relationship with dieting OTC meds, meds prescribed by a dr, exercise with diets. Binge Eating Do you frequently eat large amounts of food in short periods of time, not feeling physically hungry? No Do you feel out of control when you eat a large amount of food in a short period of time? No Do you eat large amounts of food rapidly and typically alone? Yes Night Eating Do you wake up at least once during the night to eat? No If you wake up in the night, do you find that it is necessary to eat something in order to fall back asleep? Yes Do you have little or no appetite in the morning and feel very hungry in the evening, often overeating between dinner and when you go to bed? No Social History Family history and relationship Single, he has an 18 y/o son. He has 2 sisters and 1 brother. Mother alive, lives in [place]. Father . PT reports he has Parental/Familial connection worker obligations None. Developmental history and status None reported. currently WNL. Social support Mother and siblings. PT reports he doesn't have friends. Community support PCP. Restoration/Spirituality None reported Cultural/Ethnic information Born in [place] moved to [place] at age 7. Legal Involvement and History Current or historical involvement with the legal system? None reported. Education Highest grade completed 8th grade. Preferred learning style Auditory and Visual Currently enrolled in educational program? No Interested in further educational program? No Educational Interests/Skills [employer]. 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 ) Wants help to find employment? No Meaningful activities [employer] Financial Situation Describe current financial situation Comfortable Financial assistance? None Service Service? No Mental Health and Addiction Treatment Current/Past substance abuse? No Comments quit smoking 2 months ago, was smocking 5-6 cigarettes at day. Social drinking, 1-2 drinks couple times at year, less than monthly. Current/Past addictive behavior concerns? No Psychiatric history PT state he went to counseling since 2005 to 2018. He started receiving services as he was disoriented Medical and Physical Health Summary Additional Medical History not covered in history None Sexual History concerns None Physical exam in the last year? Yes Pain Screening Current pain? Yes Pain in the last few months? Yes Comments Due to back issues. Medications Is the patient compliant with medications? Yes Does the patient have Nevarez Guardian in place? Not applicable Trauma/Abuse History History of trauma? No Assessment & Plan Assessment & Plan (1) Eating disorder, unspecified: Code(s): F50.9 - Eating disorder, unspecified Plan: Despite the client has been cleared from BH standpoint, today client showed indications of not following meal plan as suggested and he has not been compliant with program expectations. He has been advised to call the office and complete what the program requires if interested in moving forward with surgery. He is also interested in a follow up for support as he disclosed issues with eating habits. Next lexie: 09/27/2023 at 12, via telehealth. Telehealth Telehealth Telehealth Platform: [employer] Location of provider rendering services: other ([facility], [place], [place].) Location of patient: address on file Patient Identification confirmed using: Name, : Yes Telehealth method: voice only Patient verbally consented to treatment: Yes Patient verbally consented to billing insurance company: Yes Patient informed of any privacy concerns related to visit: No Minutes spent on Phone/Video with Pt.: 45 Coding Level of Care Code Established Pt Tele Psytx 45 mins ([id number]) Patient Type Established Diagnoses Eating disorder, unspecified F50.9 Time Spent (min) 45
== END 2023-09-01 13:00 | disposition home or self-care (01) ==
PROVIDERS: Visit Provider Counselor Mental Health
DX: F50.9 Eating disorder, unspecified (principal)
CPT/HCPCS: 90834

== ENCOUNTER → 2023-09-01 11:59 | Outpatient (BNVA) | payer MEDICAID, SELFPAY | PROVIDERS: Visit Provider Counselor Mental Health ==

== ENCOUNTER 2023-09-14 07:38 | Outpatient (REF) | payer MEDICAID, SELFPAY ==
--- NOTE | ~2023-09-14 | US_ITS ---
EXAMINATION: US COMPLETE ABDOMEN WITH LIVER ELASTOGRAPHY CLINICAL INFORMATION: Obesity. COMPARISON: Abdominal ultrasound dated 02/16/2023. TECHNIQUE: Real-time imaging of the abdominal viscera. Noninvasive ultrasound liver fibrosis assessment is performed using Kareem ElastPQ point quantification shear wave elastography (pSWE) with a C5-2 MHz transducer. Multiple elastography samples are obtained. FINDINGS: PANCREAS: Largely obscured by overlapping bowel gas. ABDOMINAL AORTA: The proximal, middle, and distal aortic segments are normal in caliber. INFERIOR VENA CAVA: Visualized portions are normal. LIVER: The liver demonstrates normal increased size, normal contour and increased echogenicity. No focal lesion or intrahepatic biliary duct dilatation. The right lobe measures 20.8 cm in length. The left lobe measures 13.9 cm in length. Portal flow is towards the liver (hepatopetal). Shear wave liver elastography median stiffness is 1.58 m/s (reference: normal median stiffness is 1.3 m/s or less). IQR/median stiffness to assess sampling precision is 0.08 (reference: good quality data set is IQR/median stiffness of 0.15 or less). GALLBLADDER: Normal. The gallbladder is physiologically distended without evidence of stones, sludge, polyps, wall thickening or pericholecystic fluid. COMMON BILE DUCT: Normal in caliber measuring 0.3 cm in diameter. RIGHT KIDNEY: Normal. No hydronephrosis. No renal calculi or focal parenchymal lesions. The kidney measures 12.0 cm in maximum dimension. LEFT KIDNEY: Normal. No hydronephrosis. No renal calculi or focal parenchymal lesions. The kidney measures 12.4 cm in maximum dimension. SPLEEN: Normal. The spleen measures 10.7 cm in maximum dimension. FREE FLUID: None. US/US abdomen comp w elastography IMPRESSION: 1. There is hepatomegaly. 2. There is generalized increase in hepatic echotexture, consistent with fatty infiltration or hepatocellular disease. Please correlate clinically. No focal hepatic mass or intrahepatic biliary dilatation is seen. 3. Liver elastography: In the absence of other known clinical signs, measurements rule out compensated advanced chronic liver disease. If there are known clinical signs, further testing may be needed for confirmation. REFERENCE: Society of Radiologists in Ultrasound Liver Stiffness Thresholds (2020): LIVER STIFFNESS THRESHOLDS: *Liver Stiffness equal or less than 1.3 m/s: High probability of being normal. *Liver Stiffness less than 1.7 m/s: In the absence of other known clinical signs, rules out compensated advanced chronic liver disease. *Liver Stiffness 1.7-2.1 m/s: Suggestive of compensated advanced chronic liver disease but need further test for confirmation. *Liver Stiffness over 2.1 m/s: Rules in compensated advanced chronic liver disease. *Liver Stiffness over 2.4 m/s: Suggestive of clinically significant portal hypertension. QUALITY OF DATA SET: *IQR/Median value equal or less than 0.15 implies a quality data set. *IQR/Median value over 0.15 implies a poor quality data set. SIGNIFICANT CHANGE FROM PRIOR EXAM: Significant change if liver stiffness measurement is 10% or greater from prior exam. OTHER CONSIDERATIONS: The stage of liver fibrosis may be overestimated in the setting of acute hepatitis, liver inflammation, elevated liver function tests, hepatic vascular congestion, obstructive cholestasis, non-fasting state, and infiltrative diseases such as amyloidosis and lymphoma. In some patients with NAFLD, the liver stiffness thresholds for compensated advanced chronic liver disease may be lower. In causes other than viral hepatitis and NAFLD, liver stiffness thresholds are not well established. Electronically signed by: Jasen Fonseca MD 10/06/2023 02:13 PM EDT
== END 2023-09-14 07:39 | disposition home or self-care (01) ==
LOC: HO.US 07:38
PROVIDERS: PCP Nurse Practitioner; Visit Provider Surgery
DX: E66.01 Morbid (severe) obesity due to excess calories (principal); G47.33 Obstructive sleep apnea (adult) (pediatric); E78.00 Pure hypercholesterolemia, unspecified; R73.03 Prediabetes
CPT/HCPCS: 76700; 76981

== ENCOUNTER 2023-09-27 15:56 | Outpatient (REF) | payer MEDICAID, SELFPAY ==
[2023-09-30 12:53] LABS: Naloxone 20 (H)
== END 2023-09-27 15:57 | disposition home or self-care (01) ==
LOC: HO.HHCLNP 15:56
PROVIDERS: Visit Provider Nurse Practitioner
DX: M54.16 Radiculopathy, lumbar region (principal)
CPT/HCPCS: 80348; 80362

== ENCOUNTER 2023-10-05 10:21 | Outpatient (AMB) | payer MEDICAID, SELFPAY ==
--- NOTE | 2023-10-05 10:28 | MHC.OFFVISWM ---
VS Expanded 10/05/23 10:43 BP 139/76 Blood Pressure Location Rt brachial Blood Pressure Position Sitting Pulse 79 Pulse Source Pulse Oximeter Temp 96.9 F Temperature Source Temporal Artery Scan Pulse Oximetry 98 Oxygen Delivery Method Room Air Height 5 ft 9.5 in Weight 319 lb 9.8 oz BMI 46.5 Body Fat % 41.7 Body Fat Mass 133.4 Fat Free Mass 186.2 Visceral Fat Rating 27.0 Body Water % 43.4 Body Water Mass 138.6 Muscle Mass/Score 177.2 Basal Metabolic Rate/Score 2,646 Intake Visit Reasons: (OV) F/U SWL Prescription Benefit Specialist Required: Yes Prescription Benefit Specialist Name: office cmi Allergies No Known Allergies Allergy (Verified 07/14/23 09:37) Medication List - Last Reconciled 10/05/23 by ASHLEY Fernando cetirizine (All Day Allergy (cetirizine)) 10 mg PO DAILY PRN cholecalciferol (vitamin D3) 50 mcg PO DAILY ibuprofen 800 mg PO Q8H PRN lisinopril 20 mg PO DAILY omeprazole 40 mg PO BID 30 days tramadol 100 mg PO Q6-8H PRN HPI Comments Details: Patient is a 43-year-old male who returns to the office today in follow-up. He was initially seen in the surgical weight loss clinic on 06/11/2023 with a weight of 319.4 lb and a BMI of 47.1. Weight today is 319.8 lb with a BMI of 47.2. He has the lexie but has not been weighing himself. He was also out of work for the last 3 months and has not been able to afford the shakes. He is now back to work. Meal plan: none exercise plan: none [facility] Medical History DJD (degenerative joint disease) Pre-op examination History of Helicobacter pylori infection Nasal septum fracture HTN (hypertension) Surgical History History of esophagogastroduodenoscopy (EGD) S/P nasal surgery Family History Mother Stroke Social History Alcohol intake: never Patient Tobacco Use Status: Current everyday Tobacco user Tobacco use type: Cigarette Cigarettes Per Day: 5 Years Smoked: 4 Physical Exam Const General: healthy appearing and no acute distress Resp Effort & Inspection: normal respiratory effort Auscultation: clear to auscultation bilaterally Cardio Rate: regular rate Rhythm: regular rhythm GI Auscultation: normal bowel sounds Extrem General: Yes normal to inspection Assessment & Plan Assessment & Plan (1) Morbid obesity: Code(s): E66.01 - Morbid (severe) obesity due to excess calories Category: Medical Plan: Patient will be given 1 more opportunity to succeed. We will have him return to the office in approximately 1 month. Discussed the importance of commitment and discipline and consistency. He will resume plan through the right BMI lexie. exercise needs to be done.
[2023-10-05 10:43] VITALS: BP 139/76; PULSE 79; TEMP 36.1; O2SAT 98; BMI 46.5
== END 2023-10-05 11:06 | disposition home or self-care (01) ==
PROVIDERS: Visit Provider Physician Assistant Surgical
DX: E66.01 Morbid (severe) obesity due to excess calories (principal)
CPT/HCPCS: 99213

== ENCOUNTER → 2023-10-05 10:21 | Outpatient (BNVA) | payer MEDICAID, SELFPAY | PROVIDERS: Visit Provider Physician Assistant Surgical | DX: E66.01 Morbid (severe) obesity due to excess calories (principal); Z68.42 Body mass index [BMI] 45.0-49.9, adult | CPT/HCPCS: 99212 ==

== ENCOUNTER 2023-12-06 20:12 | Emergency (ER) | payer MEDICAID, SELFPAY ==
--- NOTE | ~2023-12-06 | XR_ITS ---
EXAMINATION: XR SOFT TISSUE NECK CLINICAL INFORMATION: Possible foreign body. COMPARISON: None available. TECHNIQUE: 2 views of the soft tissue neck were obtained. FINDINGS: No radiopaque foreign body. Unremarkable prevertebral soft tissues. No abnormal soft tissue calcification. Multilevel degenerative disc disease with prominent anterior endplate osteophytes throughout the cervical spine. No acute fracture or dislocation. XR/XR soft tissue neck IMPRESSION: 1. No radiopaque foreign body. 2. Multilevel degenerative disc disease throughout the cervical spine. Electronically signed by: Tee Carroll MD 12/06/2023 09:36 PM EDT
--- NOTE | ~2023-12-06 | XR_ITS ---
EXAMINATION: XR CHEST CLINICAL INFORMATION: Chest pain. COMPARISON: Most recent chest radiograph dated 08/23/2023. TECHNIQUE: 2 views of the chest were obtained. FINDINGS: The lungs are clear. The cardiomediastinal silhouette is normal in size. There is no pleural effusion or pneumothorax. No acute osseous abnormality. XR/XR chest 2V IMPRESSION: No acute cardiopulmonary findings. Electronically signed by: Tee Carroll MD 12/06/2023 09:27 PM EDT
[2023-12-06 20:23] VITALS: BP 141/84; PULSE 86; RESP 16; TEMP 36; O2SAT 99; BMI 47.8
--- NOTE | 2023-12-06 20:23 | ED_ITS ---
HPI - General Adult General Chief complaint: General Medical Stated complaint: Hiccups since Wednesday Time Seen by Provider: 12/06/23 23:54 Source: patient, RN notes reviewed and old records reviewed Mode of arrival: ambulatory Limitations: language barrier (Patient was offered felt machine mechanic but declined) History of Present Illness ED Provider: Valerie HPI narrative: 43-year-old male presents for evaluation of hiccups. The patient reports that he had an episode of choking 3 days ago. He was eating pork and feels as though some may be stuck in his esophagus He has had hiccups ever since this episode He just has some chest discomfort associated with the hiccups as well as nausea. The patient has been able to eat and drink in the last 3 days without vomiting He reports 1 previous episode many years ago of intractable hiccups He reports it was treated with medication and went away Related Data Home Medications ?Medication ?Instructions ?Recorded ?Confirmed cholecalciferol (vitamin D3) 50 50 mcg PO DAILY 12/11/22 10/05/23 mcg (2,000 unit) tablet ibuprofen 800 mg tablet 800 mg PO Q8H PRN pain 12/11/22 10/05/23 lisinopril 20 mg tablet 20 mg PO DAILY 12/11/22 10/05/23 tramadol 50 mg tablet 100 mg PO Q6-8H PRN severe pain 12/11/22 10/05/23 cetirizine 10 mg capsule (All Day 10 mg PO DAILY PRN allergies 01/13/23 10/05/23 Allergy (cetirizine)) Previous Rx's ?Medication ?Instructions ?Recorded omeprazole 40 mg capsule,delayed 40 mg PO BID 30 days #60 caps 07/14/23 release gabapentin 300 mg capsule 300 mg PO TID PRN hiccups #15 caps 12/07/23 metoclopramide HCl 10 mg tablet 10 mg PO Q6H PRN nausea and 12/07/23 (Reglan) vomiting #12 tabs Allergies Allergy/AdvReac Type Severity Reaction Status Date / Time No Known Allergies Allergy Verified 12/06/23 20:27 Review of Systems 2 Constitutional: Constitutional: Denies body ache(s), Denies chills and Denies headache(s) Eyes: Eyes: Denies blurry vision ENT: Denies vertigo, Denies dizziness and Denies headache(s) Cardiovascular: Cardiovascular: Reports chest pain and Denies dyspnea Respiratory: Respiratory: Denies dyspnea Gastrointestinal: Gastrointestinal: Reports abdominal pain and Reports nausea Comments: hiccups Genitourinary: Genitourinary: Denies flank pain Musculoskeletal: Musculoskeletal: Denies back pain Integumentary/Breasts: Skin/Breast: Denies rash Neurologic: Denies vertigo, Denies dizziness and Denies headache(s) [facility] Past Medical History Medical History DJD (degenerative joint disease) Pre-op examination History of Helicobacter pylori infection Nasal septum fracture HTN (hypertension) Surgical History History of esophagogastroduodenoscopy (EGD) S/P nasal surgery Family History Family History Mother Stroke Social History Social History Alcohol intake: never Patient Tobacco Use Status: Current everyday Tobacco user Tobacco use type: Cigarette Cigarettes Per Day: 5 Years Smoked: 4 Smoked in Last 30 Days: Yes Use of substances other than those prescribed or required for medical reasons: Yes Advance Directives: No Advance Directives Information Provided: No Do you have a plan to hurt others: No Plan Physical Exam ED Vital Signs: Vital Signs - 24 hr 12/06/23 20:23 12/06/23 22:01 Temperature 96.8 F 98.0 F Pulse Rate 86 78 Respiratory Rate 16 16 Blood Pressure 141/84 H 131/77 Pulse Oximetry 99 97 Oxygen Delivery Method Room Air Room Air BMI result Body Mass Index 47.8 Const General: healthy appearing, comfortable, no acute distress, alert and awake Nutritional Appearance: well nourished Orientation/consciousness: patient oriented x3 HENMT Head: Yes normocephalic and Yes atraumatic Throat: Yes posterior oropharynx normal Eyes Eyelids: Yes eyelids normal Conjunctivae: conjunctivae normal Sclerae: sclerae normal Corneas: corneas normal Pupils: Equal, round and reactive pupils present EOM: EOMs intact bilaterally Neck Neck: Yes full ROM Resp Other: Intermittent hiccups Effort & Inspection: normal respiratory effort, able to speak in complete sentences, no audible wheezes and not labored Auscultation: clear to auscultation bilaterally Cardio Rate: regular rate Rhythm: regular rhythm GI Inspection: No distended Palpation (GI): Soft to palpation, not firm, nontender, no guarding and not rigid Skin General skin exam: elasticity normal Neuro General: patient oriented x3 Cranial nerves: Yes Equal, round and reactive pupils present and Yes Bilaterally intact EOM present Cognition (Neuro): normal cognition Extrem Other: Moving all extremities well without any obvious deformities Course Course Course Narrative: This is a Rapid Medical Exam performed in triage by Stephanie Hutson PA-C. Full HPI, ROS and PE to be performed by primary ED provider. 43yo M w/PMHx HTN, DJD presenting to the ED c/o hiccups since Wednesday at 1300 s/p eating pork skin & feels like skin is stuck in throat. Admits when eats feels likes hes going to vomiting. Admits to chest pain, back pain and pain with deep breathing. PE: +hiccups on exam, taking in complete sentences Plan: EKG, labs, XRs Reevaluation(s) Reevaluation #1: The patient is no longer hiccuping and feels better discharged with Reglan and gabapentin to be taken as needed per UpToDate guidelines for hiccups. Time: 01:40 Medications Administered Discontinued Medications Generic Name Dose Route Start Last Admin Trade Name Dl PRN Reason Stop Dose Admin Chlorpromazine HCl 50 mg 12/07/23 00:01 12/07/23 00:26 Chlorpromazine Hcl 25 Mg/Ml Ampul IM 12/07/23 00:02 50 mg ONCE ONE Administration Gabapentin 300 mg 12/07/23 01:17 12/07/23 01:24 Gabapentin 300 Mg Capsule PO 12/07/23 01:18 300 mg ONCE ONE Administration Metoclopramide HCl 10 mg 12/07/23 01:17 12/07/23 01:23 Metoclopramide Hcl 10 Mg Tablet PO 12/07/23 01:18 10 mg ONCE ONE Administration Medical Decision Making Medical Decision Making [facility] Narrative: 43-year-old male presents for evaluation of hiccups. He does have associated chest pain. He had a cardiac workup that included an EKG that was unchanged when compared to previous from August of 2023. Troponin negative 3 days if chest. He rules out for ACS. Given the hiccups in the reported choking episode, a GI etiology of chest pain is more likely. A chest x-ray was ordered that shows no evidence of pneumothorax or pneumonia. A soft tissue neck was ordered that shows no radiopaque foreign body. The patient is drinking sprite without any vomiting during my evaluation. Given that he is tolerating p.o. intake, a food bolus is less likely. Plan to treat intractable hiccups with pharmacotherapy. Patient will likely require a GI referral Differential Diagnosis Differential Diagnoses: The differential diagnosis associated with the presentation includes Hiccups Abdominal pain ACS less likely GERD Food bolus Lab Data MDM Lab Attestation statement: I reviewed the patient's lab results. No leukocytosis. The patient does have a very mild anemia with a hemoglobin of 13.4 and hematocrit of 38.9. This is normocytic. There was no significant left shift. Electrolytes within normal limits 12/06/23 20:36 12/06/23 20:36 Labs: Lab Results 12/06/23 Range/Units 20:36 WBC 5.9 (4.8-10.8) X10*3/uL RBC 4.46 L (4.60-5.80) X10*6/uL Hgb 13.4 L (14.0-18.0) g/dl Hct 38.9 L (42.0-52.0) % MCV 87.2 (80.0-98.0) fL MCH 30.0 (27.0-33.0) pg MCHC 34.4 (31.0-36.0) g/dl RDW 11.9 (11.0-16.0) % Plt Count 277 (160-400) X10*3/uL MPV 9.1 L (9.4-12.4) fL Immature Gran % (Auto) 0.2 (0.0-0.4) % Neut % (Auto) 41.6 L (45-73) % Lymph % (Auto) 46.2 H (20-40) % Grayson % (Auto) 6.3 (2-11) % Eos % (Auto) 5.0 H (0-4) % Baso % (Auto) 0.7 (0-2) % Lymph # (Auto) 2.7 (1.2-4.9) X10*3/uL Grayson # (Auto) 0.4 (0.1-1.2) X10*3/uL Eos # (Auto) 0.3 (0.0-0.4) X10*3/uL Baso # (Auto) 0.0 (0.0-0.2) X10*3/uL Abs Immat Gran (auto) 0.01 (0.00-0.03) X10*3/uL Absolute Neuts (auto) 2.4 (2.0-8.3) x10*3/uL Absolute Nucleated RBC 0.000 (0.0-0.012) X10*3/uL Nucleated RBC % (auto) 0.0 (0.0-0.2) /100WBC Sodium 139 (135-145) mmol/L Potassium 3.8 (3.3-5.1) mmol/L Chloride 108 (96-108) mmol/L Carbon Dioxide 22 (22-29) mmol/L Anion Gap 13 (12-20) BUN 14 (9-16) mg/dL Creatinine 0.95 (0.5-1.4) mg/dL Estim Creat Clear Calc 142.0 Estimated GFR > 60 Random Glucose 122 H (60-115) mg/dL Calcium 8.9 D (8.4-10.2) mg/dL Magnesium 1.9 (1.6-2.6) mg/dL Total Bilirubin 0.3 (0.0-1.0) mg/dL Direct Bilirubin 0.1 (0.0-0.5) mg/dL AST 28 (5-37) U/L ALT 33 (0-40) U/L Alkaline Phosphatase 58 (39-117) U/L Troponin I High Sens < 2.7 (<3.5-35.0) ng/L Total Protein 6.9 (6.5-8.0) g/dL Albumin 4.0 (3.5-5.0) g/dL Lipase 47 (8-78) U/L Independent Interpretation I performed an independent interpretation of an: EKG (Normal sinus rhythm with left axis deviation. Ventricular rate of [address] segment elevation or depression) and Plain X-Ray (Agree with Radiology interpretation) Radiology Impression Discussion of test interpretation with radiology: I have reviewed the radiologist's reading. Radiologist Impression: FINDINGS: The lungs are clear. The cardiomediastinal silhouette is normal in size. There is no pleural effusion or pneumothorax. No acute osseous abnormality. XR/XR chest 2V IMPRESSION: No acute cardiopulmonary findings. Electronically signed by: Tee Carroll MD 12/06/2023 09:27 PM EDT RP FINDINGS: No radiopaque foreign body. Unremarkable prevertebral soft tissues. No abnormal soft tissue calcification. Multilevel degenerative disc disease with prominent anterior endplate osteophytes throughout the cervical spine. No acute fracture or dislocation. XR/XR soft tissue neck IMPRESSION: 1. No radiopaque foreign body. 2. Multilevel degenerative disc disease throughout the cervical spine. Electronically signed by: Tee Carroll MD 12/06/2023 09:36 PM EDT RP Tests considered The following testing was considered but not selected: Consider CT soft tissue neck, with the patient was able to tolerate oral intake and this was deferred Discharge Plan Discharge Clinical Impression: Intractable hiccoughs Patient Disposition: Home, Self-Care Instructions: Hiccups (ED) Additional Instructions: You may take gabapentin and Reglan as needed for any further hiccups that do not go away within an hours Follow-up with GI at the number provided Return for new or worsening symptoms Prescriptions: New gabapentin 300 mg capsule 300 mg PO TID PRN (Reason: hiccups) Qty: 15 0RF metoclopramide HCl [Reglan] 10 mg tablet 10 mg PO Q6H PRN (Reason: nausea and vomiting) Qty: 12 0RF No Action All Day Allergy (cetirizine) 10 mg capsule 10 mg PO DAILY PRN (Reason: allergies) omeprazole 40 mg capsule,delayed release(DR/EC) 40 mg PO BID 30 Days Qty: 60 6RF lisinopril 20 mg tablet 20 mg PO DAILY cholecalciferol (vitamin D3) 50 mcg (2,000 unit) tablet 50 mcg PO DAILY tramadol 50 mg tablet 100 mg PO Q6-8H PRN (Reason: severe pain) ibuprofen 800 mg tablet 800 mg PO Q8H PRN (Reason: pain) Referrals: Moi Hayes MD [Physician] - (Intractable hiccups) Stand Alone Forms: Work/School Release Print Language: Maldivian
--- NOTE | 2023-12-06 20:25 | ECG_ITS ---
Test Reason : CP Blood Pressure : / mmHG Vent. Rate : 084 BPM Atrial Rate : 084 BPM P-R Int : 178 ms QRS Dur : 110 ms QT Int : 356 ms P-R-T Axes : 055 -33 034 degrees QTc Int : 420 ms Normal sinus rhythm Left axis deviation Premature ventricular complexes Abnormal ECG When compared with ECG of 23-AUG-2023 12:30, Premature ventricular complexes Present Referred By: Stephanie Hutson Electronically Signed By:FERN FRIAS
[2023-12-06 20:40] LABS: MANUAL DIFF FLAG NO
[2023-12-06 20:42] LABS: Basophils Percent Auto 0.7 % (0-2); Eosinophils Absolute Auto 0.3 X10*3/uL (0.0-0.4); Hematocrit 38.9 % (42.0-52.0); Hemoglobin 13.4 g/dl (14.0-18.0); Imm Gran Abs Auto 0.01 X10*3/uL (0.00-0.03); Imm Gran Pct Auto 0.2 % (0.0-0.4); Lymphocytes Absolute Auto 2.7 X10*3/uL (1.2-4.9); Lymphocytes Percent Auto 46.2 % (20-40); Mean Corpuscular HGB Conc 34.4 g/dl (31.0-36.0); Mean Corpuscular Volume 87.2 fL (80.0-98.0); Mean Platelet Volume 9.1 fL (9.4-12.4); Monocytes Absolute Auto 0.4 X10*3/uL (0.1-1.2); Monocytes Percent Auto 6.3 % (2-11); Neutrophils Absolute Auto 2.4 x10*3/uL (2.0-8.3); Neutrophils Percent Auto 41.6 % (45-73); Platelet Count 277 X10*3/uL (160-400); Red Blood Count 4.46 X10*6/uL (4.60-5.80); Red Cell Distribution Width 11.9 % (11.0-16.0); White Blood Count 5.9 X10*3/uL (4.8-10.8)
[2023-12-06 20:57] LABS: Alanine Aminotransferase 33 U/L (0-40); Alkaline Phosphatase 58 U/L (39-117); Anion Gap 13 (12-20); Aspartate Amino Transferase 28 U/L (5-37); Bilirubin Direct 0.1 mg/dL (0.0-0.5); Bilirubin Total 0.3 mg/dL (0.0-1.0); Blood Urea Nitrogen 14 mg/dL (9-16); Calcium 8.9 mg/dL (8.4-10.2); Carbon Dioxide 22 mmol/L (22-29); Chloride 108 mmol/L (96-108); Estimated Glomerular Filt Rate > 60; Glucose Random 122 mg/dL (60-115); Lipase 47 U/L (8-78); Magnesium 1.9 mg/dL (1.6-2.6); Potassium 3.8 mmol/L (3.3-5.1); Sodium 139 mmol/L (135-145); Total Protein 6.9 g/dL (6.5-8.0)
[2023-12-06 21:05] LABS: Troponin-I High Sensitivity < 2.7 ng/L (<3.5-35.0)
[2023-12-06 22:01] VITALS: BP 131/77; PULSE 78; RESP 16; TEMP 36.7; O2SAT 97
[2023-12-07] MEDS: chlorproMAZINE HCl 25 MG/ML AMPUL 50 MG IM (00:26)
[2023-12-07] MEDS: Metoclopramide HCl 10 MG TABLET PO (01:23)
[2023-12-07] MEDS: Gabapentin 300 MG CAPSULE PO (01:24)
[2023-12-07 01:51] VITALS: BP 126/77; PULSE 81; RESP 18; TEMP 36.8; O2SAT 98
[2023-12-07 01:54] VITALS: BP 126/77; PULSE 81; RESP 18; TEMP 36.8; O2SAT 98
== END 2023-12-07 01:55 | disposition home or self-care (01) ==
PROVIDERS: Physician Assistant; Emergency Provider Emergency Medicine
DX: R06.6 Hiccough (principal)
CPT/HCPCS: 36415; 70360; 71046; 80048; 80076; 83690; 83735; 84484; 85025; 93005; 96372; 99284; J3230

== ENCOUNTER → 2023-12-06 20:25 | Outpatient (BNV) | payer MEDICAID, SELFPAY | PROVIDERS: Emergency Provider Emergency Medicine; Visit Provider Internal Medicine | DX: I49.3 Ventricular premature depolarization (principal) | CPT/HCPCS: 93010 ==

== ENCOUNTER → 2024-02-21 11:46 | Outpatient (BNVA) | payer SELFPAY | PROVIDERS: Visit Provider Physician Assistant Medical | DX: Z02.79 Encounter for issue of other medical certificate (principal) ==

== ENCOUNTER 2024-02-25 12:20 | Outpatient (REF) | payer SELFPAY ==
[2024-02-25 13:26] LABS: Estimated Average Glucose 105 mg/dL; Hemoglobin A1C 137.8556 umol/L; Hemoglobin A1c % 5.3 % (<6.0); Total Hemoglobin (HGBA1C) 4011.5483 umol/L
[2024-02-25 13:56] LABS: Creatinine Urine 601.44 mg/dL; Microalbum/Creatinine Ratio Ur 8.3 ug/mg cr (<30)
[2024-02-25 14:06] LABS: Anion Gap 8 (12-20); Blood Urea Nitrogen 13 mg/dL (9-16); Calcium 9.3 mg/dL (8.4-10.2); Carbon Dioxide 30 mmol/L (22-29); Chloride 109 mmol/L (96-108); Cholesterol 150 mg/dL (<200); Estimated Glomerular Filt Rate > 60; Glucose Random 84 mg/dL (60-115); HDL Cholesterol 32 mg/dL (>40); LDL Cholesterol Calculated 100 mg/dL (<100); Potassium 4.3 mmol/L (3.3-5.1); Sodium 143 mmol/L (135-145); Triglycerides 91 mg/dL (<150)
== END 2024-02-25 12:21 | disposition home or self-care (01) ==
LOC: HO.HHCL 12:20
PROVIDERS: Visit Provider Nurse Practitioner
DX: I10 Essential (primary) hypertension (principal); Z13.1 Encounter for screening for diabetes mellitus
CPT/HCPCS: 36415; 80048; 80061; 82043; 82570; 83036

== ENCOUNTER 2024-09-06 12:44 | Outpatient (AMB) | payer MEDICAID, SELFPAY ==
[2024-09-06 12:51] VITALS: BP 121/71; PULSE 89; RESP 16; O2SAT 99; BMI 42.2
--- NOTE | 2024-09-06 12:51 | A.OFFVIS_ITS ---
Vital Signs 09/06/24 12:51 Height 5 ft 9 in Weight 286 lb BMI 42.2 BP 121/71 Blood Pressure Location Rt brachial Position Sitting Respiration 16 Pulse 89 Pulse Source Pulse Oximeter Pulse Oximetry (%) 99 Oxygen Delivery Method Room Air Intake Visit Reasons: LUMBAR BACK PAIN W/RADICULOPATHY Butadiene Converter Utility Operator Required: Yes Butadiene Converter Utility Operator Name: Shiraz [id number] Accompanied by: Self / Same As Patient Allergies No Known Allergies Allergy (Verified 09/06/24 13:00) HPI Comments Details: Visit completed with senior officer Shiraz [id number] The patient is a 44-year-old male presenting with chronic back pain. The back pain has been present for an extended period, although the patient does not recall the exact onset. The pain began after an incident where a heavy door fell on him, exacerbating pre-existing back discomfort. The pain radiates primarily to the left leg, extending almost to the knee, and is accompanied by numbness in the lower extremity and foot. The patient reports that the pain interferes with sleep, causing frequent awakenings and discomfort while trying to find a comfortable position. Previous interventions include a single injection in the back, which was painful and resulted in an emergency room visit due to severe pain. The patient has an upcoming MRI scheduled to further evaluate the condition, as previous imaging indicated compression of a nerve in the lower back. He has not undergone phys ical therapy, was told that he surgery in the past and not to do PT. ultimately he decided he was not ready for surgical intervention therefore was lost to follow-up. - Onset: Chronic, exact onset unknown, exacerbated by a heavy door falling on the patient. - Quality: Radiating pain to the left leg, extending to the knee, with associated numbness. - Location: Lower back, radiating to the left leg. - Exacerbating factors: Sitting and standing transitions, sleep disturbances. - Relieving factors: None mentioned. - Interference: Causes sleep disturbances and discomfort during transitions from sitting to standing. - Affect: Pain interferes with sleep and daily activities. - Analgesia: Previous injection was ineffective and caused severe pain. - Adverse Effects: Severe pain following injection, requiring emergency care. - Activities of Daily Living: Pain affects sleep and comfort during daily activities. - Aberrant Drug Related Behaviors: None reported. [facility] Medical History DJD (degenerative joint disease) Pre-op examination History of Helicobacter pylori infection Nasal septum fracture HTN (hypertension) Surgical History History of esophagogastroduodenoscopy (EGD) S/P nasal surgery Family History Mother Stroke Social History Alcohol intake: never Patient Tobacco Use Status: Current everyday Tobacco user Tobacco use type: Cigarette Cigarettes Per Day: 5 Years Smoked: 4 Review of Systems Const Details: - Musculoskeletal: Reports chronic back pain, radiating to the left leg, with numbness. - Neurological: Reports numbness in the lower extremity, tingling, and shooting pain. - Sleep: Reports difficulty sleeping due to pain, frequent awakenings. Physical Exam Exam Exam: General: awake, alert, oriented. Answers questions appropriately. Fully engaged in examination. Skin: warm, dry, intact HEENT: Normocephalic. Hearing intact. Cardiac: External chest normal in appearance. Respiratory: No cough, audible wheezing or stridor. Abdomen: without gross distension. MS: No obvious swelling or deformities. Able to stand on bilateral tiptoes and bilateral heels.? Able to transition from sit to stand unassisted. Ambulates with bilaterally normal heel strike and toe off Nontender over midline lumbar vertebrae and lumbar paraspinal muscles SLR positive on the left Nontender over bilateral PSIS Bilateral lower extremity strength 5/5 Negative footdrop, negative clonus Neurological: Oriented to person, place, time and situation. Thought process intact. No gait abnormalities appreciated. Psychiatric: Appropriate mood and affect. Good judgment and insight. Vital Signs: Last Vital Signs Pulse 89 09/06/24 12:51 Resp 16 09/06/24 12:51 BP 121/71 09/06/24 12:51 Pulse Ox 99 09/06/24 12:51 Oxygen Delivery Method Room Air 09/06/24 12:51 BMI result Body Mass Index 42.2 Assessment & Plan Assessment & Plan (1) DJD (degenerative joint disease): Code(s): M19.90 - Unspecified osteoarthritis, unspecified site Category: Medical (2) Chronic back pain: Code(s): M54.9 - Dorsalgia, unspecified; G89.29 - Other chronic pain Category: Medical (3) Lumbar radiculopathy: Code(s): M54.16 - Radiculopathy, lumbar region Category: Medical Plan The patient will undergo an MRI to assess the extent of nerve compression in the lower back, which is scheduled for Wednesday. Based on the MRI results, potential interventions include x-ray guided injections to manage pain, with Ativan offered for pre-procedure anxiety if necessary. If the MRI indicates a need for surgical intervention, the patient will be referred to a surgeon for further evaluation. In the interim, the patient is advised to avoid activities that exacerbate pain and to monitor symptoms closely. Patient was informed and verbally consented to the use of an ambient scribe for clinic note documentation during this visit. Patient Instructions: - Undergo MRI as scheduled on Wednesday. - Avoid activities that increase back pain. - Monitor symptoms and report any significant changes. - Follow up with the doctor after MRI results are available. Coding Level of Care Code New Pt Level 4 (99626) Complex EM visit Add On G2211 Diagnoses DJD (degenerative joint disease) M19.90 Chronic back pain M54.9; G89.29 Lumbar radiculopathy M54.16
--- OUTSIDE RECORDS SUMMARY | 2024-09-06 13:17 | XMS_ITS | Encounter Summary ---
Author Organization [employer] Address [address] [place] [address] Care Team Providers Care Business Excellence Manager Name Role Phone Elizabeth Watson NP Primary Care Provider [phone] Reason for Visit * Reason Comments Med Refill Encounter Details Date Type Department Care Team ([facility] st Contact Info) Description 12/03/2023 Refill [facility]EDS [address] [place] [address] Elizabeth Watson NP [address] [place] [address] Chronic bilateral low back pain, unspecified whether sciatica present Social History Tobacco Use Types Packs/Day Years Used Date Smoking Tobacco: Former Cigarettes 0.3 1.8 S tarted: 11/2022 Passive Smoke Exposure: Current Alcohol Use Standard Drinks/Week Comments Never 0 (1 standard drink = 0.6 oz pur e alcohol) Depression Answer Date Recorded Patient Health Questionnaire-9 Score 0 07/07/2023 Patient Health Questionnaire-9 Score 0 07/07/2023 Last PHQ-9: Questionnaire Data Not on file 0 07/07/2023 Housing Stability Answer Date Recorded What is your housing situation today? I have hemanth villar 11/23/[address] you li ve. Do you have problems with any of the following? None of the above 11/23/2022 Food Insecurity Answer Date Recorded Within the past 12 months, y ou worried that your food would run out before you got money to buy more: Never True 11/23/2022 Within the past 12 months,th e food you bought just didn't last and you didn't have enough money to get more: Never True Transportation Answer Date Recorded In the past 12 months, has l ack of transportation kept you from medical appts, meetings, work or from getting things needed for daily living? No 11/23/2022 Utilities Answer Date Recorded In the past 12 months, has t he electric, gas, oil or water company threatened to shut off services in your home? No 11/23/2022 Depression Answer Date Recorded Patient Health Questionnaire-2 Score 0 07/07/2023 Sex and Gender Information Value Date Recorded Sex Assigned at Male 12/08/2021 10:14 AM EDT Legal Sex Male 10:14 AM EDT Gender Identity Male 03/19/2022 3:42 PM EST Sexual Orientation Straight 12/08/2021 10 :14 AM EDT documented as of this encounter Miscellaneous Notes * Telephone Encounter - Elizabeth Watson NP - 12/08/2023 1:08 PM EDT Please adjust to meet the taper schedule. Thanks documented in this encounter Plan of Treatment Upcoming Encounters Date Type Department Care Team (Late st Contact Info) Description 09/12/2024 2:00 PM EDT Clinical Support [facility] MEDICINE [address] [place] [phone] Kina Samson RN 09/22/2024 11:00 AM EDT Office Visit [facility] MED[facility]INE [address] [place] [phone] Elizabeth Watson NP [address] [place] [phone] documented as of this encounter Visit Diagnoses Diagnosis Chronic bilateral low back pain, unspecified whether sciatica present documented in this encounter Additional Health Concerns Assessment Noted Time PHQ-9 Depression Total Score: 0 07/07/19 24 9:25 AM EDT documented as of this encounter Care Teams Business Excellence Manager Relationship Specialty Start Date End Date Elizabeth Watson NP [address] [place] [phone] PCP - General Family Medicine 11/17/22 documented as of this encounter
--- OUTSIDE RECORDS SUMMARY | 2024-09-06 13:17 | XMS_ITS | Clinical Summary ---
Author Organization [facility] Address [address] [place] [address] Phone Care Team Providers Care Store Consultant Name Role Phone Pcp, Not Required Primary Care Provider Unavaila ble Allergies No known active allergies Medications ibuprofen (ADVIL,MOTRIN) 200 MG tablet Take 200 mg by mouth every 6 (six) hours as needed for pain (specific location in comments). Active Active Problems No known active problems Social History Tobacco Use Types Packs/Day Years Used Date Smoking Tobacco: Never Assessed Education Answer Date Recorded Are you interested in more education? Not on dilan e 06/06/2022 Are you concerned about learning? Not on file 06/06/2022 No 06/06/2022 No 06/06/2022 Digital Access Answer Date Recorded No 07/07/2022 No 07/07/2022 Reliable internet access at home? Not on file 07/07/2022 Device with a working camera? Not on file Sex and Gender Information Value Date Recorded Sex Assigned at Not on file Legal Sex Male 2:08 PM EDT Gender Identity Not on file Sexual Orientation Not on file Last Filed Vital Signs Vital Sign Reading Time Taken Comments Blood Pressure 122/70 06/26/2020 9:06 AM EDT Pulse 92 06/26/2020 9:06 AM EDT Temperature 36.8 C (98.2 F) 06/26/2020 9:06 AM EDT Respiratory Rate 18 06/26/2020 9:06 AM EDT Oxygen Saturation 97% 06/26/2020 9:06 AM EDT Inhaled Oxygen Concentration - - Weight 142.9 kg (315 lb) 06/26/2020 9:06 AM EDT Height 177.8 cm (5' 10 ) 06/26/2020 9:06 AM EDT Body Mass Index 45.2 06/26/2020 9:06 AM EDT Plan of Treatment Health Maintenance Due Date Last Done Comments LIPID PANEL 1979 DEPRESSION SCREENING 1991 SMOKING Hx and SMOKELESS TOBACCO SCREENING 02/29/1992 HEPATITIS C SCREENING 1997 HIV ONE-TIME SCREENING (18-6 5 YEARS) 1997 COVID-19 VACCINE (3 - 2023-2 5 season) 2023 10/30/2020, 10/08/2020 COLOGUARD 02/29/2024 COLONOSCOPY 02/29/2024 COLORECTAL CANCER SCREENING 02/29/2024 FIT TEST 02/29/2024 FOBT 02/29/2024 SIGMOIDOSCOPY 02/29/2024 VIRTUAL COLONOSCOPY 02/29/2024 Adult Td,Tdap Booster 01/30/2025 01/30/2015 HEPATITIS A VACCINES Aged Out 02/22/2015 No long er eligible based on patient's age to complete this topic HIB VACCINES Aged Out No longer eligi ble based on patient's age to complete this topic MENINGOCOCCAL VACCINES (ACWY) Aged Out No longer eligible based on patient's age to complete this topic MENINGOCOCCAL VACCINES (B) Aged Out N o longer eligible based on patient's age to complete this topic PNEUMOCOCCAL VACCINES (0-49 years) Aged Out No longer eligible b ased on patient's age to complete this topic Medical Devices Not on file Insurance [facility] COOPERATIVE C3 ACO C3 ACO C3 ACO C3 ACO C3 ACO C3 ACO [facility] C3 ACO [employer] Care Teams Store Consultant Relationship Specialty Start Date End Date Pcp, Not Required [address] [place] [address] PCP - General 06/11/20 Additional Source Comments The information contained in this document represents components of the legal health record. It is not the complete legal health record.[facility]
--- OUTSIDE RECORDS SUMMARY | 2024-09-06 13:17 | XMS_ITS | Clinical Summary ---
Author Organization [address] [facility] Address [address] [place] [address] Phone Care Team Providers Care Marine Biologist Name Role Phone Unavailable Primary Care Provider Unavailabl e Allergies No known active allergies Medications No known medications Active Problems No known active problems Social History Tobacco Use Types Packs/Day Years Used Date Smoking Tobacco: Never Assessed Sex and Gender Information Value Date Recorded Sex Assigned at Not on file Legal Sex Male 2:21 AM EST Gender Identity Not on file Sexual Orientation Not on file Last Filed Vital Signs Vital Sign Reading Time Taken Comments Blood Pressure 148/89 03/08/2024 10:24 AM EST Pulse 92 03/08/2024 10:24 AM EST Temperature 37 C (98.6 F) 03/08/2024 10:24 AM EST Respiratory Rate - - Oxygen Saturation - - Inhaled Oxygen Concentration - - Weight 142 kg (312 lb) 03/08/2024 10:24 AM EST Height 177.8 cm (5' 10 ) 03/08/2024 10:24 AM EST Body Mass Index 44.77 03/08/2024 10:24 AM EST Plan of Treatment Health Maintenance Due Date Last Done Comments Hepatitis B Vaccines (1 of 3 - 19+ 3-dose series) 1998 12/18/2009, 07/23/2009, 06/21/2009 Pneumococcal Vaccine: Pediatrics (0 to 5 Years) and At-Risk Patients (6 to 49 Years) (1 of 2 - PCV) 1998 Hepatitis A Vaccines (2 of 2 - Risk 2-dose series) 08/23/2015 02/22/2015 Colorectal Cancer Screening: Colonoscopy 01/11/2022 Social Influencers of Health Screening 01/11/2022 COVID-19 Vaccine (3 - 2023-2 5 season) 2023 10/30/2020, 10/08/2020 Depression Screening 02/09/2024 Influenza Vaccine (#1) 2024 DTaP,Tdap,and Td Vaccines (2 - Td or Tdap) 01/30/2025 01/30/2015 Hypertension/CHF/CAD Annual BMP Blood Test 02/24/2025 02/25/2024 Cholesterol Screening (Lipid Panel) 02/24/2029 02/25/2024 HIV Screening Completed 05/01/2022 Hepatitis C Screening Completed 05/01/2022 HIB Vaccines Aged Out No longer eligi ble based on patient's age to complete this topic HPV Vaccines Aged Out No longer eligi ble based on patient's age to complete this topic IPV Vaccines Aged Out No longer eligi ble based on patient's age to complete this topic MMR Vaccines Aged Out No longer eligi ble based on patient's age to complete this topic Meningococcal ACWY Vaccine Aged Out N o longer eligible based on patient's age to complete this topic Meningococcal B Vaccine Aged Out No l onger eligible based on patient's age to complete this topic RSV Immunization Patients Under 20 months Aged Out No longer eligible b ased on patient's age to complete this topic Varicella Vaccines Aged Out No longer eligible based on patient's age to complete this topic [place] [address] [place] [id number] MEDICA[place] - [place]
== END 2024-09-06 13:25 | disposition home or self-care (01) ==
LOC: HO.PMC 12:44
PROVIDERS: PCP Nurse Practitioner; Visit Provider Registered Nurse Emergency
DX: M19.90 Unspecified osteoarthritis, unspecified site (principal); M54.9 Dorsalgia, unspecified; G89.29 Other chronic pain; M54.16 Radiculopathy, lumbar region
CPT/HCPCS: 99204

== ENCOUNTER → 2024-09-06 12:44 | Outpatient (BNVA) | payer MEDICAID, SELFPAY | PROVIDERS: PCP Nurse Practitioner; Visit Provider Registered Nurse Emergency | DX: M54.16 Radiculopathy, lumbar region (principal); M54.9 Dorsalgia, unspecified; G89.29 Other chronic pain; M19.90 Unspecified osteoarthritis, unspecified site | CPT/HCPCS: 99212 ==

== ENCOUNTER 2024-09-10 14:44 | Outpatient (REF) | payer MEDICAID, SELFPAY ==
--- OUTSIDE RECORDS SUMMARY | 2024-09-10 14:46 | XMS_ITS | Clinical Summary ---
Author Organization [facility] Address [address] [place] [address] Phone Care Team Providers Care Aix Administrator Name Role Phone Pcp, Not Required Primary [...] topic Medical Devices Not on file Insurance [facility] COOPERATIVE C3 ACO C3 ACO C3 ACO C3 ACO C3 ACO C3 ACO [facility] C3 ACO [employer] Care Teams Aix Administrator Relationship Specialty Start Date End Date Pcp, Not Required [address] [place] [address] PCP - General 06/11/20 Additional Source Comments The information contained in this document represents components of the legal health record. It is not the complete legal health record.[facility]
--- OUTSIDE RECORDS SUMMARY | 2024-09-10 14:46 | XMS_ITS | Clinical Summary ---
Author Organization [address] [facility] Address [address] [place] [address] Phone Care Team Providers Care Electronics Technology Instructor Name Role Phone Unavailable Primary Care Provider [...] patient's age to complete this topic [place] [address] [id number] MEDICA[place] - [place]
== END 2024-09-10 14:45 | disposition home or self-care (01) ==
LOC: HO.MRI 14:44
PROVIDERS: PCP Nurse Practitioner; Visit Provider Nurse Practitioner
DX: Z13.89 Encounter for screening for other disorder (principal)

== ENCOUNTER 2024-09-22 12:09 | Outpatient (REF) | payer MEDICAID, SELFPAY ==
--- OUTSIDE RECORDS SUMMARY | 2024-09-22 12:11 | XMS_ITS | Encounter Summary ---
Author Organization [facility] Address [address] [place] [address] Care Team Providers Care Safe Expert Name Role Phone Elizabeth Watson NP Primary Care Provider [phone] Reason for Visit * Reason Comments Med Refill Encounter Details Date Type Department Care Team ([facility] st Contact Info) Description 12/03/[address] [facility] [address] [place] [address] Elizabeth Watson NP [address] [address] Chronic bilateral low back pain, unspecified whether sciatica present Social History Tobacco Use Types Packs/Day Years Used Date Smoking Tobacco: Former Cigarettes 0.3 1.9 S tarted: 11/2022 Passive Smoke Exposure: Current [...] Care Team (Late st Contact Info) Description 10/18/2024 10:00 AM EDT Clinical Support [facility] [address] [place] [address] Kina Samson, RN documented as of this encounter Visit Diagnoses Diagnosis Chronic bilateral low back pain, unspecified whether sciatica present documented in this encounter Additional Health Concerns Assessment Noted Time PHQ-9 Depression Total Score: 0 07/07/19 24 9:25 AM EDT documented as of this encounter Care Teams Safe Expert Relationship Specialty Start Date End Date Elizabeth Watson NP [address] [place] [address] PCP - General Family Medicine 11/17/22 documented as of this encounter
--- OUTSIDE RECORDS SUMMARY | 2024-09-22 12:11 | XMS_ITS | Clinical Summary ---
Author Organization [facility] Address [address] [place] [address] Phone Care Team Providers Care Office Support Assistant Name Role Phone Pcp, Not Required Primary [...] topic Medical Devices Not on file Insurance [facility] COOPERATIVE C3 ACO C3 ACO C3 ACO C3 ACO C3 ACO C3 ACO [facility] C3 ACO [employer] COMPENS[employer] Care Teams Office Support Assistant Relationship Specialty Start Date End Date Pcp, Not Required [address] [place] [address] PCP - General 06/11/20 Additional Source Comments The information contained in this document represents components of the legal health record. It is not the complete legal health record.[facility]
--- OUTSIDE RECORDS SUMMARY | 2024-09-22 12:11 | XMS_ITS | Clinical Summary ---
Author Organization [address] [facility] Address [address] [place] [address] Phone Care Team Providers Care Corporate Giving Manager Name Role Phone Unavailable Primary Care Provider [...] patient's age to complete this topic [place] [address] [place] [id number] [place]
[2024-09-22 14:05] LABS: Anion Gap 10 (12-20); Blood Urea Nitrogen 21 mg/dL (9-16); Calcium 9.1 mg/dL (8.4-10.2); Carbon Dioxide 27 mmol/L (22-29); Chloride 105 mmol/L (96-108); Cholesterol 174 mg/dL (<200); Estimated Glomerular Filt Rate > 60; HDL Cholesterol 36 mg/dL (>40); Potassium 4.4 mmol/L (3.3-5.1); Sodium 138 mmol/L (135-145); Triglycerides 59 mg/dL (<150)
== END 2024-09-22 12:10 | disposition home or self-care (01) ==
LOC: HO.HHCL 12:09
PROVIDERS: PCP Nurse Practitioner; Visit Provider Nurse Practitioner
DX: I10 Essential (primary) hypertension (principal); E78.5 Hyperlipidemia, unspecified
CPT/HCPCS: 36415; 80048; 80061